=== PATIENT | female | born 1950 | race Caucasian/White ===

== ENCOUNTER 2016-07-22 17:10 | Inpatient (IN) | payer BC ==
[~2016-07-22] VITALS: Ht 177.8 cm; Wt 122.7 kg
[~2016-07-22 17:10] MED LIST: APIX5TAB PO; AZIT250T PO; CARV25TA PO; CEFT1FRO2 IV; CEFT1VIA6 IJ; CETI10TA22 PO; CHOL4000 PO; CHON250C PO; CICL12.5 NS; CYAN10005 PO; DIPH1TAB PO; ESCI20TA10 PO; FERR-26 PO; FURO-68 PO; FURO40TA4 PO; GABA-586 PO; LACT1CAP6 PO; LEVO100T5 PO; LEVO500T38 IV; LIDO700A4 TD; LIDO700A4 TP; LISI-334 PO; MULT-246 PO; NAPR220T70 PO; OMEG1CAP2 PO; OMEP40CA2 PO; PHEN100T82 PO; POTA20TA12 PO; POTA20TA4 PO; PRAV20TA2 PO; PROSOM PO; S-AD400T2 PO; TRAM-29 PO; UBID200C4 PO; VANC1.752 IV; VANC1VIA3 MC; [UNRECOGNIZED DRUG - CODE] IV; cardizem; el
--- NOTE | 2016-07-22 17:57 | ED.ADGEN ---
Past History Past Medical History: Cancer, CHF, CVA, Depression, Fibromyalgia, GERD, High Cholesterol, Hypertension, Kidney Stones, UTI, Other Past Surgical History: Cancer Surgery, Other Alcohol Use: None Drug Use: None Adult General Chief Complaint Chief Complaint " .. I am weak.. I feel like when I had C-dif.. before .. I am just washed out.. Diarrhea.. this morning...".. I ache.. I just hurt every where... "" My fibromyalgia.. my shoulders ,,.. my hips.. 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 Patient denies any travel. Patient denies any ill contacts. Patient denies any change in meds. Patient does complain of some dysuria. Patient has history of multiple medical problems. Patient normally follows Dr. Cano. Review of Systems Review of Systems Constitutional: Subjective complaints of fever or chills [] Eyes: Denies change in visual acuity, redness, or eye pain [] HENT: Denies nasal congestion or sore throat [] Respiratory: Denies cough or shortness of breath [] Cardiovascular: No additional information not addressed in HPI [] GI: Denies abdominal pain, nausea, vomiting, bloody stools . Complaints of diarrhea [] : Complaints of dysuria Musculoskeletal: Complaints of generalized joint pain [] Complaints of generalized weakness and fatigue. Integument: Denies rash or skin lesions [] Neurologic: Denies headache, focal weakness or sensory changes [] Endocrine: Denies polyuria or polydipsia [] Family History Family History Noncontributory Current Medications Current Medications Current Medications Medications (Trade) Dose Ordered Sig/Efrem Start Time Stop Time Status Last Admin Dose Admin Aspirin 324 mg 324 mg 1X ONCE 07/22/16 18:00 07/22/16 18:08 DC Lactated Ringer's 1,000 ml @ 1,000 mls/hr Q1H 07/22/16 18:00 07/22/16 18:57 1,000 MLS/HR Ondansetron HCl 8 mg 8 mg 1X ONCE 07/22/16 19:00 07/22/16 19:04 DC 3/19/17 19:17 8 MG Sodium Chloride (Iv Sodium Chloride 0.9% 250ml) 250 ml @ As Directed STK-MED ONCE 07/22/16 19:06 07/22/16 19:07 DC Tramadol/ Acetaminophen (Ultracet) 2 tab 1X ONCE 07/22/16 19:00 07/22/16 19:04 DC 07/22/16 19:16 2 TAB Vancomycin HCl 1 gm STK-MED ONCE 07/22/16 19:06 07/22/16 19:07 DC Vancomycin HCl/ Sodium Chloride (Iv Sodium Chloride 0.9% 250ml) 250 ml @ 250 mls/hr 1X ONCE 07/22/16 19:00 07/22/16 19:59 DC 07/22/16 19:18 250 MLS/HR Allergies Allergies Allergies Coded Allergies Type Severity Reaction Last Updated Verified cephalexin Allergy Intermediate 04/05/15 Yes cyclosporine Allergy Intermediate 04/05/15 Yes hydromorphone Allergy Intermediate 04/05/15 Yes nitrofurantoin Allergy Intermediate 04/05/15 Yes scopolamine Allergy Intermediate 02/17/15 Yes thimerosal Allergy Intermediate 02/17/15 Yes Physical Exam Physical Exam Constitutional: Moderate distress, non-toxic appearance. [] HENT: Normocephalic, atraumatic, bilateral external ears normal, oropharynx dry , no oral exudates, nose normal. [] Eyes: PERRLA, EOMI, conjunctiva normal, no discharge. [] Neck: Normal range of motion, no tenderness, supple, no stridor. [] Cardiovascular: Tachycardia Heart rate regular rhythm, no murmur [] PMI to the left Lungs & Thorax: Bilateral breath sounds equal apexes with some scattered wheezes. Surgery scars. Port on right Abdomen: Bowel sounds hyperactive, soft, no tenderness, no masses, no pulsatile masses. [] Morbid obesity. Old surgery scars. Tympanic. No true rebound. Old surgery scars. Patient is passing gas and diarrhea. Obese. Skin: Warm, dry, no erythema, no rash. [] Poor turgor Back: No tenderness, no CVA tenderness. [] Extremities: Generalized joint, shoulder girdle tenderness, no cyanosis, no clubbing, moves all ext on request,, ankle edema. [] Knee scars. Right knee scar. Right first toe ulcer Neurologic: Alert and oriented X 3, no gross new motor function deficits, increase general weakness and complaints of fatigue, decreased distal plantar sensory , Psychologic: Affect anxious, judgement normal, mood depressed Current Patient Data Vital Signs Vital Signs Date Time Temp Pulse Resp B/P Pulse Ox O2 Delivery O2 Flow Rate FiO2 07/22/16 18:30 100.2 63 16 156/73 98 Room Air Lab Results Laboratory Tests Test 07/22/16 17:40 07/22/16 18:10 07/22/16 18:51 Urine Collection Type U cath Urine Color Yellow Urine Clarity Hazy Urine pH 7.5 Urine Specific [place] 1.020 Urine Protein >100 mg/dl (NEG-TRACE) Urine Glucose (UA) 100mg/dL (NEG) Urine Ketones (Stick) 15mg/dL (NEG) Urine Blood Large (NEG) Urine Nitrite Pos (NEG) Urine Bilirubin Neg (NEG) Urine Urobilinogen Dipstick 2mg/dL (0.2 mg/dL) Urine Leukocyte Esterase Large (NEG) Urine RBC 3-5/HPF (0-2) Urine WBC Tntc/HPF (0-4) Urine Squamous Epithelial Cells Occ/LPF Urine Bacteria Mod/HPF (0-FEW) Urine Mucus Slight/LPF Urine Opiates Screen Neg (NEG) Urine Methadone Screen Neg (NEG) Urine Barbiturates Neg (NEG) Urine Phencyclidine Screen Neg (NEG) Urine Amphetamine/Methamphetamine Neg (NEG) Urine Benzodiazepines Screen Pos (NEG) Urine Cocaine Screen Neg (NEG) Urine Cannabinoids Screen Neg (NEG) Urine Ethyl Alcohol Neg (NEG) White Blood Count 15.0x10^3/uL (4.0-11.0) H Red Blood Count 4.82x10^6/uL (3.50-5.40) Hemoglobin 15.0g/dL (12.0-15.5) Hematocrit 45.8% (36.0-47.0) Mean Corpuscular Volume 95fL (79-100) Mean Corpuscular Hemoglobin 31pg (25-35) Mean Corpuscular Hemoglobin Concent 33g/dL (31-37) Red Cell Distribution Width 15.0% (11.5-14.5) H Platelet Count 153x10^3/uL (140-400) Neutrophils (%) (Auto) 78% (31-73) H Lymphocytes (%) (Auto) 12% (24-48) L Monocytes (%) (Auto) 9% (0-9) Eosinophils (%) (Auto) 1% (0-3) Basophils (%) (Auto) 1% (0-3) Neutrophils # (Auto) 11.7x10^3uL (1.8-7.7) H Lymphocytes # (Auto) 1.8x10^3/uL (1.0-4.8) Monocytes # (Auto) 1.3x10^3/uL (0.0-1.1) H Eosinophils # (Auto) 0.1x10^3/uL (0.0-0.7) Basophils # (Auto) 0.1x10^3/uL (0.0-0.2) Erythrocyte Sedimentation Rate 24 (0-25) Prothrombin Time 11.2SEC (9.4-11.4) Prothrombin Time INR 1.1 (0.9-1.1) PTT 24SEC (23-33) D-Dimer (Emma) 0.90mg/L (0.00-0.50) H Sodium Level 139mmol/L (136-145) Potassium Level 5.1mmol/L (3.5-5.1) Chloride Level 101mmol/L (98-107) Carbon Dioxide Level 29mmol/L (21-32) Anion Gap 9 (6-14) Blood Urea Nitrogen 39mg/dL (7-20) H Creatinine 1.8mg/dL (0.6-1.0) H Estimated GFR (Cockcroft-Gault) 28.1 Glucose Level 124mg/dL (70-99) H Calcium Level 10.2mg/dL (8.5-10.1) H Magnesium Level 2.2mg/dL (1.8-2.4) Total Bilirubin 1.1mg/dL (0.2-1.0) H Direct Bilirubin 0.3mg/dL (0.0-0.2) H Aspartate Amino Transferase (AST) 25U/L (15-37) Alanine Aminotransferase (ALT) 40U/L (14-59) Alkaline Phosphatase 109U/L (46-116) Creatine Kinase 38U/L (26-192) Creatine Kinase MB (Mass) 0.5ng/mL (0.0-3.6) Creatine Kinase MB Relative Index 1.3% (0-4) Troponin I Quantitative < 0.017ng/mL (0-0.055) C-Reactive Protein 98.3mg/L (0-3.3) H MB-Rbw-T-Type Natriuretic Peptide 106pg/mL (0-124) Total Protein 7.1g/dL (6.4-8.2) Albumin 4.0g/dL (3.4-5.0) Amylase Level 28U/L (25-115) Lipase 54U/L (73-393) L Lactic Acid Level 1.2mmol/L (0.4-2.0) EKG EKG My interpretation of EKG shows a sinus rhythm at 96 bpm. There is leftward axis and LVH. No findings acute STEMI of contralateral changes. [] Radiology/Procedures Radiology/Procedures I interpretation of abdomen films does show some isolated bowel loops. [] Chest x-ray shows cardiomegaly. No free air in the diaphragm. Port on right. Prior surgery clips. Course & Med Decision Making Course & Med Decision Making Pertinent Labs and Imaging studies reviewed. (See chart for details). Discussed presentation, testing and treatment plan with Dr. Crabtree. Will admit for further eval and tx. . US legs pending at time of admission. [] Final Impression Final Impression 1. Weakness[] 2. Leukocytosis 3. Urinary tract infection 4. Sirs /sepsis 5. Dehydration 6. Elevated BUNs and creatinine 7. Elevated C-reactive protein 8. History of diarrhea- history of prior C. difficile 9. Elevated d-dimer Problems: Dragon Disclaimer Dragon Disclaimer This electronic medical record was generated, in whole or in part, using a voice recognition dictation system. RALINE ALTAMIRANO MD Jul 22, 2016 17:57
[2016-07-22] MEDS ORDERED: IV RINGERS SOLUTION,LACTATED 1,000 ML IV SCH (18:00)
[2016-07-22] MEDS ORDERED: ASPIRIN 81 MG TAB.CHEW PO ONE (18:00)
[2016-07-22 18:20] LABS: AMPHETAMINE/METHAMPHETAMINE NEG (NEG); BARBITURATES NEG (NEG); BENZODIAZEPINES POS (NEG); CANNABINOIDS NEG (NEG); COCAINE NEG (NEG); METHADONE NEG (NEG); OPIATES NEG (NEG); PHENCYCLIDINE NEG (NEG)
[2016-07-22 18:24] LABS: CLARITY,URINE HAZY; COLOR,URINE YELLOW
[2016-07-22 18:25] LABS: BILIRUBIN,URINE NEG (NEG); GLUCOSE,URINE 100 mg/dL (NEG); NITRITE,URINE POS (NEG); UROBILINOGEN,URINE 2 mg/dL (0.2 mg/dL)
[2016-07-22 18:26] LABS: BACTERIA,URINE MOD /HPF (0-FEW); SQUAMOUS EPITHELIAL CELL,UR OCC /LPF; WBC,URINE TNTC /HPF (0-4)
--- NOTE | 2016-07-22 18:34 | EKG ---
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
[2016-07-22] MEDS ORDERED: ONDANSETRON PF 4 MG/2 ML VIAL. IV ONE (19:00)
[2016-07-22] MEDS ORDERED: TRAMADOL PO ONE (19:00)
[2016-07-22] MEDS ORDERED: VANCOMYCIN 1 GM in IV NORMAL SALINE 250ML 250 ML IV ONE ×2 (19:00→20:00)
[2016-07-22] MEDS ORDERED: ACETAMINOPHEN PO ONE (19:00)
[2016-07-22] MEDS ORDERED: VANCOMYCIN 1 GM VIAL. ONE ×2 (19:06→22:38)
[2016-07-22] MEDS ORDERED: IV NORMAL SALINE 250ML 250 ML ONE ×2 (19:06→22:39)
[2016-07-22 19:09] LABS: BASO # 0.1 x10^3/uL (0.0-0.2); BASO % 1 % (0-3); EOS # 0.1 x10^3/uL (0.0-0.7); EOS % 1 % (0-3); HEMATOCRIT 45.8 % (36.0-47.0); LYMPH # 1.8 x10^3/uL (1.0-4.8); LYMPH % 12 % (24-48); MEAN CORPUSCULAR HEMOGLOBIN 31 pg (25-35); MEAN CORPUSCULAR HGB CONC 33 g/dL (31-37); MEAN CORPUSCULAR VOLUME 95 fL (79-100); MONO # 1.3 x10^3/uL (0.0-1.1); MONO % 9 % (0-9); NEUT # 11.7 x10^3uL (1.8-7.7); NEUT % 78 % (31-73); PLATELET COUNT 153 x10^3/uL (140-400); RED BLOOD COUNT 4.82 x10^6/uL (3.50-5.40)
[2016-07-22] MEDS ORDERED: VANCOMYCIN PER PHARMACY MC PRN (19:15)
[2016-07-22] MEDS ORDERED: ONDANSETRON PF 4 MG/2 ML VIAL. IV PRN (19:15)
[2016-07-22 19:48] LABS: C REACTIVE PROTEIN 98.3 mg/L (0-3.3); CALCIUM 10.2 mg/dL (8.5-10.1); CREATININE 1.8 mg/dL (0.6-1.0); DIRECT BILIRUBIN 0.3 mg/dL (0.0-0.2); GFR 28.1; MAGNESIUM 2.2 mg/dL (1.8-2.4); POTASSIUM 5.1 mmol/L (3.5-5.1); TOTAL BILIRUBIN 1.1 mg/dL (0.2-1.0); TOTAL PROTEIN 7.1 g/dL (6.4-8.2)
[2016-07-22 20:18] LABS: SEDIMENTATION RATE 24 (0-25)
[2016-07-22] MEDS ORDERED: ANTI-COAG MONITOR BY PHARMACY. MC PRN (21:15)
[2016-07-22] MEDS ORDERED: ENOXAPARIN ** NOTE DOSE ** SYRINGE SQ SCH (21:30)
[2016-07-22] MEDS: METRONIDAZOLE 500 MG TABLET PO SCH (21:56)
[2016-07-22] MEDS: IV NORMAL SALINE 1,000ML 1,000 ML IV SCH (21:57)
[2016-07-22] MEDS ORDERED: ZOLPIDEM 5 MG TABLET. PO PRN (22:00)
[2016-07-22] MEDS ORDERED: LORAZEPAM 0.5 MG TABLET PO PRN (22:00)
[2016-07-22] MEDS ORDERED: PHENAZOPYRIDINE 100 MG TABLET. PO PRN (22:00)
[2016-07-22] MEDS ORDERED: FENTANYL PF 100 MCG/2 ML VIAL. IV PRN (22:00)
[2016-07-22 22:12] LABS: INFLUENZA A PATIENT NEGATIVE (NEGATIVE); INFLUENZA B PATIENT NEGATIVE (NEGATIVE)
[2016-07-22] MEDS ORDERED: ESCITALOPRAM 20 MG TABLET. PO SCH (22:30)
[2016-07-22] MEDS: FLUTICASONE 50MCG/NASAL SPRAY 16GM BOTTLE. NS SCH (22:35)
[2016-07-22] MEDS: TRAMADOL 50 MG TABLET. PO SCH (22:35)
[2016-07-22] MEDS: OMEGA-3 FATTY ACIDS/FISH OIL 1,000 MG CAPSULE. PO SCH (22:42)
[2016-07-22] MEDS: GABAPENTIN 300 MG CAPSULE. PO SCH (22:42)
[2016-07-22] MEDS: PRAVASTATIN 20 MG TABLET. PO SCH (22:43)
[2016-07-22 22:50] VITALS: BP 112/59
[2016-07-22] MEDS ORDERED: GABAPENTIN 300 MG CAPSULE. PO SCH (23:00)
[2016-07-22 23:04] VITALS: BP 102/54
[2016-07-23] VITALS (21 sets, daily range): BP systolic 64–149; BP diastolic 44–82
[2016-07-23] MEDS ORDERED: TRAM1TAB49 PO (03:40)
[2016-07-23] MEDS: ACETAMINOPHEN PO PRN ×2 (05:34→15:06)
[2016-07-23] MEDS: LEVOTHYROXINE 100 MCG TABLET PO SCH (05:34)
[2016-07-23] MEDS: TRAMADOL PO PRN ×2 (05:34→15:06)
[2016-07-23] MEDS: PANTOPRAZOLE 40 MG TABLET. PO SCH (08:15)
[2016-07-23] MEDS: CYANOCOBALAMIN (VITAMIN B-12) 1,000 MCG TABLET. PO SCH (08:15)
[2016-07-23] MEDS: METRONIDAZOLE 500 MG TABLET PO SCH ×3 (08:15→20:20)
[2016-07-23] MEDS: TRAMADOL 50 MG TABLET. PO SCH ×2 (08:15→20:30)
[2016-07-23] MEDS: CETIRIZINE HCL 10 MG TABLET PO SCH (08:15)
[2016-07-23] MEDS: MULTIVITAMIN with MINERAL TABLET. PO SCH (08:16)
[2016-07-23] MEDS: APIXABAN 5 MG TABLET. PO SCH ×2 (08:16→20:20)
[2016-07-23] MEDS: OMEGA-3 FATTY ACIDS/FISH OIL 1,000 MG CAPSULE. PO SCH ×2 (08:16→20:20)
[2016-07-23] MEDS: UBIDECARENONE 200 MG PO SCH (08:16)
[2016-07-23] MEDS: LACTOBACILLUS ACIDOPH & BULGAR 1 TABLET. PO SCH (08:16)
[2016-07-23] MEDS: CHOLECALCIFEROL (VITAMIN D3) 1,000 UNIT TABLET PO SCH (08:17)
[2016-07-23] MEDS: FERROUS SULFATE 325 MG TABLET PO SCH (08:17)
[2016-07-23] MEDS: POTASSIUM CHLORIDE 20 MEQ TABLET.ER. PO SCH (08:17)
[2016-07-23] MEDS: CARVEDILOL 25 MG TABLET PO SCH ×2 (08:17→15:05)
--- NOTE | 2016-07-23 08:50 | RAD ---
Indication chest and abdominal pain. Weakness. A single view of the chest was obtained. Comparison is made to an examination almost one year earlier. There is unchanged cardiomegaly. There is no congestive heart failure. There is no focal infiltrate. There is no pleural fluid or pneumothorax. Postoperative changes in the cervical spine and a right Port-A-Cath are noted. IMPRESSION: No acute or focal process seen in the chest
--- NOTE | 2016-07-23 08:51 | RAD ---
Ventilation/perfusion lung scan, 07/23/2016: History: Elevated d-dimer, dyspnea The ventilation study was performed utilizing 11 mCi of xenon-133. Activity in the lungs is heterogeneous. There is mild patchy retention of activity in the lungs on the washout phase, particularly in the right lung base. Perfusion imaging was performed utilizing 5.5 mCi of technetium 99m MAA. A similar pattern of activity is present in the lungs. No significant unmatched or segmental perfusion defects are seen. IMPRESSION: 1. Abnormal ventilation suggesting obstructive pulmonary disease. 2. No VQ evidence of pulmonary emboli.
--- NOTE | 2016-07-23 08:52 | RAD ---
Indication abdominal pain. Supine and upright films of the abdomen were obtained. Comparison is made to an examination 08/15/2015. The lung bases are unremarkable. There is no free air. There are dilated loops of small bowel. There is a paucity of gas in the large bowel. Findings are suggestive of a component of at least partial mechanical small bowel obstruction. Occasional calcifications are noted in the abdomen similar to the previous exam. IMPRESSION: Plain films of the abdomen suggesting at least partial mechanical small bowel obstruction
[2016-07-23] MEDS ORDERED: LIDOCAINE (700MG/PATCH) PATCH. TP PRN (09:00)
[2016-07-23] MEDS ORDERED: LIDOCAINE (700MG/PATCH) PATCH. TP SCH (09:00)
[2016-07-23] MEDS ORDERED: FUROSEMIDE 40 MG TABLET PO SCH (09:00)
[2016-07-23] MEDS ORDERED: FLUTICASONE 50MCG/NASAL SPRAY 16GM BOTTLE. NS SCH (09:00)
[2016-07-23] MEDS ORDERED: [UNRECOGNIZED DRUG - OTHER] PO SCH (09:00)
[2016-07-23] MEDS ORDERED: LISINOPRIL 20 MG TABLET PO SCH (09:00)
[2016-07-23] MEDS ORDERED: S ADENOSYLMETHIONINE SUL TOSYL 400 MG PO SCH (09:00)
[2016-07-23 10:03] LABS: BASO # 0.1 x10^3/uL (0.0-0.2); BASO % 0 % (0-3); EOS # 0.1 x10^3/uL (0.0-0.7); EOS % 0 % (0-3); HEMATOCRIT 40.8 % (36.0-47.0); HEMOGLOBIN 13.3 g/dL (12.0-15.5); LYMPH # 1.8 x10^3/uL (1.0-4.8); LYMPH % 12 % (24-48); MEAN CORPUSCULAR HEMOGLOBIN 31 pg (25-35); MEAN CORPUSCULAR HGB CONC 33 g/dL (31-37); MEAN CORPUSCULAR VOLUME 95 fL (79-100); MONO # 1.3 x10^3/uL (0.0-1.1); MONO % 9 % (0-9); NEUT # 12.2 x10^3uL (1.8-7.7); NEUT % 79 % (31-73); PLATELET COUNT 143 x10^3/uL (140-400); RED BLOOD COUNT 4.28 x10^6/uL (3.50-5.40); RED CELL DISTRIBUTION WIDTH 15.1 % (11.5-14.5); WHITE BLOOD COUNT 15.5 x10^3/uL (4.0-11.0)
[2016-07-23 10:16] LABS: ALBUMIN 3.4 g/dL (3.4-5.0); ALBUMIN/GLOBULIN RATIO 0.9 (1.0-1.7); CALCIUM 8.8 mg/dL (8.5-10.1); CREATININE 1.6 mg/dL (0.6-1.0); GFR 32.2
[2016-07-23 10:58] LABS: % BANDS 7 % (0-9); % EOS 1 % (0-5); % LYMPHS 6 % (24-48); % MONOS 7 % (0-10); % SEGS 79 % (35-66)
[2016-07-23 11:01] LABS: PLT ESTIMATE ADEQUATE (ADEQUATE); TOXIC GRANULATION PRESENT; TOXIC VACUOLATION PRESENT
[2016-07-23] MEDS: IV NORMAL SALINE 1,000ML 1,000 ML IV SCH ×2 (12:57→14:48)
[2016-07-23] MEDS: GABAPENTIN 300 MG CAPSULE. PO SCH ×2 (12:58→20:33)
--- NOTE | 2016-07-23 13:08 | RAD ---
Indication shortness of air, edema and elevated d-dimer. Grayscale color Doppler and spectral imaging was performed. Examination was targeted to the veins of the lower extremities. Bilaterally the common femoral, femoral and popliteal vessels demonstrate normal flow compressibility and augmentation. No thrombus is seen. The visualized calf veins, bilaterally, appeared unremarkable. IMPRESSION: Negative bilateral lower extremity venous analysis for DVT
[2016-07-23] MEDS ORDERED: PHENYLEPHRINE INJ 20 MG in IV NORMAL SALINE 250ML 250 ML IV PRN (14:45)
[2016-07-23 14:57] LABS: THYROID STIM HORMONE (TSH) 0.637 uIU/mL (0.358-3.740)
[2016-07-23] MEDS: VANCOMYCIN 1.75 GM in IV NORMAL SALINE 500ML 500 ML IV SCH (16:35)
--- NOTE | 2016-07-23 17:38 | CARD ---
APPROVED REPORT EXAM: Two-dimensional and M-mode echocardiogram with Doppler and color Doppler. Other Information Quality : GoodHR: 90bpm Rhythm : NSR INDICATION Hypotension RISK FACTORS Obesity 2D DIMENSIONS RVDd2.7 (2.9-3.5cm)IVSd1.3 (0.7-1.1cm) Aortic Root(2D)3.4 (2.0-3.7cm)LVDd4.7 (3.9-5.9cm) PWd0.1 (0.7-1.1cm)LVDs3.6 (2.5-4.0cm) FS (%) 24.8 %SV50.8 ml LVEF(%)49.0 (>50%) Aortic Valve AoV Peak Jaziel.185.6cm/sAoV VTI40.3cm AO Peak GR.13.8mmHgAO Mean GR.9mmHg KATI (VTI)2.24cm2 Mitral Valve MV E Xixrbxvb256.1cm/sMV E Peak Gr.3mmHg MV DECEL [id number] A Zyxrpbsq50.8cm/s MV E Mean Gr.2mmHgE/A Ratio1.1 MV A [id number] Tricuspid Valve TR P. Nzcptpiv412tn/sRAP [id number] TR Peak Gr.48mmHg LEFT VENTRICLE The left ventricle is normal size. There is mild concentric left ventricular hypertrophy. The left ve ntricular systolic function is low normal The Ejection Fraction is 50-55%. There is normal LV segment al wall motion. The left ventricular diastolic function and filling is normal for age. RIGHT VENTRICLE The right ventricle is normal size. There is normal right ventricular wall thickness. The right ventr icular systolic function is normal. ATRIA The left atrium is moderately dilated. The right atrium size is normal. The interatrial septum is int act with no evidence for an atrial septal defect or patent foramen ovale as noted on 2-D or Doppler i magmax. There is lipomatous hypertrophy of the interatrial septum AORTIC VALVE The aortic valve is mildly sclerotic. Doppler and Color Flow revealed no significant aortic regurgita tion. There is no significant aortic valvular stenosis. MITRAL VALVE The mitral valve is normal in structure and function. There is no evidence of mitral valve prolapse. There is no mitral valve stenosis. There is trace to mild mitral regurgitation. TRICUSPID VALVE Doppler and Color Flow revealed mild tricuspid regurgitation. The pulmonary artery systolic pressure is estimated at 51 mmHg. There is moderate pulmonary hypertension. PULMONIC VALVE The pulmonic valve is not well visualized. Doppler and Color Flow revealed no pulmonic valvular regur gitation. There is no pulmonic valvular stenosis. GREAT VESSELS The aortic root is normal in size. The ascending aorta is normal in size. The pulmonary artery is nor mal. The IVC is normal in size and collapses >50% with inspiration. PERICARDIAL EFFUSION There is no evidence of significant pericardial effusion. Critical Notification Critical Value: No <Conclusion> There is mild concentric left ventricular hypertrophy. The left ventricular systolic function is low normal The Ejection Fraction is 50-55%. The left atrium is moderately dilated. The aortic valve is mildly sclerotic. There is no significant aortic valvular stenosis. There is trace to mild mitral regurgitation. Doppler and Color Flow revealed mild tricuspid regurgitation. The pulmonary artery systolic pressure is estimated at 51 mmHg. There is moderate pulmonary hypertension. The IVC is normal in size and collapses >50% with inspiration.
--- NOTE | 2016-07-23 18:07 | PDOC2 ---
CONSULT The patient has been seen and examined and the full consult has been dictated.~ I have summarized the most important points for review while the note is being transcribed.~ Please see the dictation for complete details. Summary: Shock: Sec to Sepsis: Fluid resuscitation Pulm HTNL PAP 50. Review old echo H/o CHF: EF 50% Problems: MELANIE SCHMITZ MD Jul 23, 2016 18:06
[2016-07-23] MEDS ORDERED: IV NORMAL SALINE 1,000ML 1,000 ML IV ONE (18:15)
[2016-07-23] MEDS: PRAVASTATIN 20 MG TABLET. PO SCH (20:19)
[2016-07-23] MEDS: FLUTICASONE 50MCG/NASAL SPRAY 16GM BOTTLE. NS SCH (20:20)
--- NOTE | 2016-07-23 21:52 | HP ---
ADMIT DATE: 07/22/2016 HISTORY OF PRESENT ILLNESS: The patient is a 66-year-old female, not been feeling well for the last week with some general weakness, nausea and just not feeling well overall, not able to take some of her medications, thought she was coming down with something. She has a long history obviously of multiple medical problems including that of cancers. Consequently, is undergoing chemotherapy. At any case, the patient came in and she was found to have a florid urinary tract infection with sepsis. She was admitted to the hospital for further evaluation and treatment thereof. PAST MEDICAL HISTORY: Stage 4 breast cancer, Herceptin treatment every 3 weeks, acute right pronator teres syndrome due to over compression of blood pressure cuff. 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 She has had several falls, chronic severe osteoarthritis of her knees, lumbar spinal stenosis, chronic sinusitis, recurrent history of kidney stones, bilateral vitreous retractions and early cataracts, chronic recurrent fatigue, chemo brain phenomena, chronic ascending peripheral neuropathy, bilateral cubital tunnel syndrome, fibromyalgia, OCD, decreased magnesium and vitamin D3, SVT. She has also had a history of PEs as well. The patient on her breast cancer is 2 over-exp/ER plus P MEN. MET. breast cancer ([facility]) to bone only. She has had a 4-cycle dose in 2002 via Adriamycin, Taxol 1 year, tamoxifen, and Arimidex. In 12/2005, had MPI stress test, normal myocardial perfusion, EF at that time was 58%. Calcium score zero. She has had a triple recurrence with mets benign, begins Herceptin in 2008. A 2011 echo, 50% ejection fraction; in 09/2012, 54% ejection and biatrial enlargement. In 10/2013, starts Kadcyla. In 03/2015, CA 27-29 slowly declining and monitored EF by Dr. Escobar at . In 2014, discharged from [facility] due to urosepsis and MRSA sepsis. In 05/2015, Herceptin, discussed with Dr. Rudd. MEDICATIONS: Include Faslodex IM, gabapentin 600 mg twice daily, glucosamine, boswellia, Osteo Bi-Flex, lactobacillus, levothyroxine 100 mcg, Prinivil 5 mg a day, Prilosec 20 mg, potassium 8 mEq twice daily, pravastatin 20 mg at bedtime, adenosylmethionine one tablet daily, tramadol 50 mg daily, Herceptin IV, vancomycin capsules, and vitamins. ALLERGIES: She has allergies to DILAUDID, SCOPOLAMINE, MACRODANTIN, RESTASIS EYE DROPS, OXYCODONE AND THIOSAL PRESERVATIVES. PAST SURGICAL HISTORY: Right outer knee surgery, medial right knee partial repair, mastectomy. The patient also has an indwelling line. FAMILY HISTORY: Father right heart failure, pulmonary hypertension, pulmonary embolus and the mother . SOCIAL HISTORY: No smoking, alcohol or drug use. 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 REVIEW OF SYSTEMS: As noted, just generalized weakness, nausea, and general fatigue. PHYSICAL EXAMINATION: VITAL SIGNS: Actually, blood pressure went down as low as 64/44, respiratory rate 18, pulse 68, afebrile, oxygen 3 liters on nasal cannula at 95%. GENERAL: The patient is alert, but looks slightly confused. Skin is clammy. HEENT: Head was atraumatic, normocephalic. Eyes, PERRLA without jaundice. Mouth and throat were normal. NECK: Supple without JVD or thyromegaly. LUNGS: Diminished throughout, but clear. CARDIOVASCULAR: Regular sinus rhythm, S1, S2, without murmur, rub, thrill, or extra heart sound. ABDOMEN: Soft, protuberant, nontender. No rebound or guarding. Positive bowel sounds. No hepatosplenomegaly. EXTREMITIES: No clubbing or cyanosis. Trace edema noted. Pulses noted distally. NEUROLOGIC: Alert, but as noted slightly confused about speech. LABORATORY DATA: White count 15,000, hemoglobin and hematocrit 13 and 40, platelets stable, good differential there. Sodium and potassium ____. BUN and creatinine 34 and 1.8, down to 1.6. Calcium 10.2. Total bilirubin elevated. Cardiac enzymes negative. C-reactive protein 98.3. Lipid profile normal. TSH normal. Lactic acid within range. Urine greater than 40 white blood cells per high powered field, too numerous to count with positive nitrites. INR 1.1. D-dimer 0.9. Serology, influenza negative. IMPRESSION: Sepsis, urosepsis, organism unspecified at the present time, history of breast cancer with metastasis, hypotension, history of hypertension, Herceptin chemotherapy for her breast cancer treated at [facility] for such. RECOMMENDATIONS: The patient to be admitted, placed on sepsis pathway in the ICU for further evaluation and treatment thereof of the situation at hand. KYLE LAW MD DR: BELGICA/calixto JOB#: [id number] / [id number]
[2016-07-24] VITALS (14 sets, daily range): BP systolic 98–159; BP diastolic 54–95
--- NOTE | 2016-07-24 00:15 | CONS ---
DATE OF CONSULTATION: 07/23/2016 CARDIOLOGY CONSULTATION REFERRING PHYSICIAN: Dr. Kyle Crabtree. REASON FOR CONSULTATION: Hypotension and history of congestive heart failure. 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 She presented to the Emergency Room and was found to be febrile with an elevated white count and abnormal urine. She was hypertensive initially, however, since her arrival here this afternoon, she became hypotensive. She is now on Alex-Synephrine. She has had around 2 liters. She is making urine. She denies any chest pain. She says she feels washed out. She denies any shortness of breath. She is on oxygen. REVIEW OF SYSTEMS: She has had a T-max of 100.2. She says her normal temperature is 97. Temperature now is 97.9. Her pulse rate ____. She feels fatigued and has had diarrhea. She denies any chest pain or shortness of breath. The rest of the 10 organ review of system was negative. PAST MEDICAL HISTORY: She gives a history of right heart failure some years ago (she is not sure whether it was 2003 or 2013) and as well as a history of left heart failure in 2014. She gives a history of pulmonary embolism in 2013. She has a history of breast cancer affecting both breasts, and has been on chemotherapy since 2001. She had a port, which got infected. She has had multiple urinary tract infections recently. She does not have any knowledge of her pulmonary hypertension or coronary artery disease. She has a history of hypertension. PAST SURGICAL HISTORY: She reports that she has had "80 surgeries in her life." SOCIAL HISTORY: She does not smoke. 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 She takes alcohol on social occasions, but has not done so in the recent past. FAMILY HISTORY: Father had coronary artery disease and bypass surgery at the age of 85. He has a history of pulmonary hypertension. Her sisters have had breast cancer. There is no family history of premature coronary artery disease. MEDICATIONS: These were reviewed. She was on carvedilol, lisinopril, apixaban. She is currently on antibiotics. PHYSICAL EXAMINATION: GENERAL: She appears fatigued. Pulse rate is 70 and regular. Blood pressure is 115/65, O2 sats at 95% on 3 liters. HEENT: Pupils are equal and reactive. Extraocular movements are normal. Sclerae is clear. Mucous membranes are dry. NECK: Supple. There is no thyromegaly. There is no lymphadenopathy. Jugular venous pressure is not elevated. Hepatojugular reflux is absent. CARDIOVASCULAR: Revealed normal first and second heart sounds. No murmurs, rubs or gallops. There are no parasternal pulsations or heaves. CHEST: Revealed equal expansion and equal breath sounds bilaterally without any adventitious sounds. ABDOMEN: Soft, without any palpable mass or pulsations. No bruits. She has a port in her right chest. EXTREMITIES: Reveal no edema. Distal pulses were well felt. MUSCULOSKELETAL: No cyanosis or clubbing. No tremors. NEUROLOGIC: No facial asymmetry. There is no motor or sensory deficits. SKIN: There are no skin rashes. INVESTIGATIONS: Chest x-ray was reviewed and this shows slight enlargement of the heart size. Lung rothman were clear. Her urine was abnormal, which was hazy, positive for nitrites and WBCs. BUN was 39, creatinine 1.8, which has improved. Her troponin was negative. NT-proBNP is 106. WBC count is 15.5. IMPRESSION AND PLAN: 1. Shock: This is secondary to sepsis with elevated white count, an abnormal urine and fever. She appears to be volume depleted with a normal proBNP and dry mucous membranes and a flat jugular venous pressure. We shall give her more fluids in the form of 250 mL of normal saline for the next 4 hours and then reassess clinically. In the meantime, we shall try and wean her off the Alex-Synephrine. 2. Pulmonary hypertension: Her echo shows moderate pulmonary hypertension with a PA pressure of 50. She is well aware of this diagnosis. We shall review prior echocardiograms. 3. History of congestive heart failure: Her ejection fraction is around 50%. I am not sure of the exact cause of prior congestive heart failure, but may have been related to sepsis and infections. 4. Hypertension: Blood pressure medications are on hold. 5. History of pulmonary embolism in 2013. She is on apixaban. 6. Obesity: She is currently ill. 7. Osteoarthritis: She wants to have a knee replacement done. We talked about planning that at a later stage. MELANIE SCHMITZ MD DR: SOHAM/calixto JOB#: [id number] / [id number] KYLE Emerson MD
[2016-07-24] MEDS: TRAMADOL PO PRN (01:16)
[2016-07-24] MEDS: ACETAMINOPHEN PO PRN (01:16)
[2016-07-24] MEDS: IV NORMAL SALINE 1,000ML 1,000 ML IV SCH ×2 (02:42→07:29)
[2016-07-24] MEDS: LEVOTHYROXINE 100 MCG TABLET PO SCH (05:19)
--- NOTE | 2016-07-24 06:33 | ACF ---
Admission Criteria Forms URINARY COMPLICATIONS Clinical Indications for Inpatient Care (Place 'X' for any and all applicable criteria): Ongoing inpatient care may be indicated for urinary complications with ANY ONE of the following: [X]I. Urinary tract infection requiring inpatient care as indicated by ANY ONE of the following(8)(19)(20): [ ]a) Severe symptoms (eg, high fever, severe pain) [ ]b) Vomiting or dehydration requiring ongoing inpatient care [X]c) IV antibiotic needs that cannot be managed at lower level of care [ ]d) Hemodynamic instability [ ]e) Obstruction of collecting system by stone or tumor [ ]II. Urinary retention requiring drainage or surgery (3)(4)(5)(17)(18) [ ]III. Renal failure (Use Renal Failure Criteria for further information.) [ ]IV. Oliguria(30) [ ]V. Post obstructive diuresis requiring close monitoring of urine output and intravenous compensation for excessive fluid losses(33) Extended stay beyond goal length of stay for primary condition may be needed until ALL of the following are present(3)(4)(5)(8): [ ]a) Renal function (creatinine) at baseline, or daily decreases in creatinine consistent with renal function return [ ]b) Voiding adequately or with urinary catheter or percutaneous suprapubic tube and management regimen in place that is performable at lower level of care. [ ]c) Urine output adequate [ ]d) Fever absent or resolving [ ]e) Infection absent or treatable at next level of care The original [employer] content created by [employer] has been revised. The portions of the content which have been revised are identified through the use of italic text or in bold, and [facility] has neither reviewed nor approved the modified material. All other unmodified content is copyright [employer] [facility] Please see references footnoted in the original [employer] [facility] edition 2016 Admission Criteria Met?: Yes AMINAH CABALLERO Jul 24, 2016 06:33
[2016-07-24] MEDS: OMEGA-3 FATTY ACIDS/FISH OIL 1,000 MG CAPSULE. PO SCH ×2 (07:44→21:18)
[2016-07-24] MEDS: CHOLECALCIFEROL (VITAMIN D3) 1,000 UNIT TABLET PO SCH (07:45)
[2016-07-24] MEDS: UBIDECARENONE 200 MG PO SCH (07:45)
[2016-07-24] MEDS: APIXABAN 5 MG TABLET. PO SCH ×2 (07:45→21:19)
[2016-07-24] MEDS: PANTOPRAZOLE 40 MG TABLET. PO SCH (07:46)
[2016-07-24] MEDS: FERROUS SULFATE 325 MG TABLET PO SCH (07:46)
[2016-07-24] MEDS: TRAMADOL 50 MG TABLET. PO SCH ×2 (07:46→21:00)
[2016-07-24] MEDS: CARVEDILOL 25 MG TABLET PO SCH ×2 (07:47→16:43)
[2016-07-24] MEDS: MULTIVITAMIN with MINERAL TABLET. PO SCH (07:47)
[2016-07-24] MEDS: METRONIDAZOLE 500 MG TABLET PO SCH ×3 (07:47→21:18)
[2016-07-24] MEDS: LACTOBACILLUS ACIDOPH & BULGAR 1 TABLET. PO SCH (07:48)
[2016-07-24] MEDS: CYANOCOBALAMIN (VITAMIN B-12) 1,000 MCG TABLET. PO SCH (07:48)
[2016-07-24 07:49] LABS: CALCIUM 7.5 mg/dL (8.5-10.1); GFR 55.3
[2016-07-24] MEDS: POTASSIUM CHLORIDE 20 MEQ TABLET.ER. PO SCH (07:49)
[2016-07-24] MEDS: CETIRIZINE HCL 10 MG TABLET PO SCH (07:49)
--- NOTE | 2016-07-24 08:53 | PDOC ---
PROGRESS NOTES Diagnosis Problem Problems Medical Problems: (1) UTI (urinary tract infection) Status: Acute Assessment Problems Medical Problems: (1) UTI (urinary tract infection) Status: Acute Hypertension. Blood pressures starting to become elevated. She is off pressors. She got her Coreg this morning. I will reduce dose of DAFNE to see how she responds to the Coreg. Shock due to systemic infection. Now off Phenylephrine. Still on IV fluids. If she is eating and drinking better today, consider stopping IV fluids. Pulmonary hypertension, moderate. May be secondary to previous pulmonary embolism. VQ scan was low probability for pulmonary embolism here. Continue Eliquis. SVT. She had some SVT last night. She did not feel this last night, but sometimes at home she can feel this. Will resume Coreg, as above. 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 Problems: Subjective We are seeing her for shock. S: Seems somewhat confused. is at bedside and noticed the confusion. She denies chest pain, dyspnea, palpitations, syncope, ankle edema. Objective Vital Signs Date Time Temp Pulse Resp B/P Pulse Ox O2 Delivery O2 Flow Rate FiO2 07/24/16 08:00 Nasal Cannula 3.0 07/24/16 07:47 76 07/24/16 07:46 24 07/24/16 07:30 150/62 96 07/24/16 05:33 98.0 Intake and Output 07/24/16 07:00 Intake Total 4038 ml Output Total 2750 ml Balance 1288 ml Intake Oral 1375 ml IV Total 2663 ml Output Urine Total 2750 ml Abdomen: Normal bowel sounds, Soft, No tenderness Heart: Regular rate, Normal S1, Normal S2, Other (2/6 systolic ejection murmur. ) Extremities: No clubbing, No cyanosis, No edema, Normal pulses General: Alert, Oriented X3, Cooperative, No acute distress HEENT: Atraumatic, EOMI Lungs: Clear to auscultation, Normal air movement Neck: No JVD, +2 carotid pulse wo bruit Neuro: Normal speech, Strength at 5/5 X4 ext, Normal tone, Cranial nerves 3-12 NL Psych/Mental Status: Mood NL, Other (Seems slightly confused/forgetful about events of yesterday.) Skin: No rashes, No breakdown Review of Relevant I have reviewed the following items miguelangel (where applicable) has been applied. Labs Laboratory Tests Test 07/22/16 17:40 07/22/16 18:10 07/22/16 18:51 07/22/16 21:00 Urine Collection Type U cath Urine Color Yellow Urine Clarity Hazy Urine pH 7.5 Urine Specific [place] 1.020 Urine Protein >100 mg/dl (NEG-TRACE) Urine Glucose (UA) 100mg/dL (NEG) Urine Ketones (Stick) 15mg/dL (NEG) Urine Blood Large (NEG) Urine Nitrite Pos (NEG) Urine Bilirubin Neg (NEG) Urine Urobilinogen Dipstick 2mg/dL (0.2 mg/dL) Urine Leukocyte Esterase Large (NEG) Urine RBC 3-5/HPF (0-2) Urine WBC Tntc/HPF (0-4) Urine Squamous Epithelial Cells Occ/LPF Urine Bacteria Mod/HPF (0-FEW) Urine Mucus Slight/LPF Urine Opiates Screen Neg (NEG) Urine Methadone Screen Neg (NEG) Urine Barbiturates Neg (NEG) Urine Phencyclidine Screen Neg (NEG) Urine Amphetamine/Methamphetamine Neg (NEG) Urine Benzodiazepines Screen Pos (NEG) Urine Cocaine Screen Neg (NEG) Urine Cannabinoids Screen Neg (NEG) Urine Ethyl Alcohol Neg (NEG) White Blood Count 15.0x10^3/uL (4.0-11.0) Red Blood Count 4.82x10^6/uL (3.50-5.40) Hemoglobin 15.0g/dL (12.0-15.5) Hematocrit 45.8% (36.0-47.0) Mean Corpuscular Volume 95fL (79-100) Mean Corpuscular Hemoglobin 31pg (25-35) Mean Corpuscular Hemoglobin Concent 33g/dL (31-37) Red Cell Distribution Width 15.0% (11.5-14.5) Platelet Count 153x10^3/uL (140-400) Neutrophils (%) (Auto) 78% (31-73) Lymphocytes (%) (Auto) 12% (24-48) Monocytes (%) (Auto) 9% (0-9) Eosinophils (%) (Auto) 1% (0-3) Basophils (%) (Auto) 1% (0-3) Neutrophils # (Auto) 11.7x10^3uL (1.8-7.7) Lymphocytes # (Auto) 1.8x10^3/uL (1.0-4.8) Monocytes # (Auto) 1.3x10^3/uL (0.0-1.1) Eosinophils # (Auto) 0.1x10^3/uL (0.0-0.7) Basophils # (Auto) 0.1x10^3/uL (0.0-0.2) Erythrocyte Sedimentation Rate 24 (0-25) Prothrombin Time 11.2SEC (9.4-11.4) Prothromb Time International Ratio 1.1 (0.9-1.1) Activated Partial Thromboplast Time 24SEC (23-33) D-Dimer (Emma) 0.90mg/L (0.00-0.50) Sodium Level 139mmol/L (136-145) Potassium Level 5.1mmol/L (3.5-5.1) Chloride Level 101mmol/L (98-107) Carbon Dioxide Level 29mmol/L (21-32) Anion Gap 9 (6-14) Blood Urea Nitrogen 39mg/dL (7-20) Creatinine 1.8mg/dL (0.6-1.0) Estimated GFR (Cockcroft-Gault) 28.1 Glucose Level 124mg/dL (70-99) Calcium Level 10.2mg/dL (8.5-10.1) Magnesium Level 2.2mg/dL (1.8-2.4) Total Bilirubin 1.1mg/dL (0.2-1.0) Direct Bilirubin 0.3mg/dL (0.0-0.2) Aspartate Amino Transf (AST/SGOT) 25U/L (15-37) Alanine Aminotransferase (ALT/SGPT) 40U/L (14-59) Alkaline Phosphatase 109U/L (46-116) Creatine Kinase 38U/L (26-192) Creatine Kinase MB (Mass) 0.5ng/mL (0.0-3.6) Creatine Kinase MB Relative Index 1.3% (0-4) Troponin I Quantitative < 0.017ng/mL (0-0.055) C-Reactive Protein 98.3mg/L (0-3.3) WX-Iwm-Q-Type Natriuretic Peptide 106pg/mL (0-124) Total Protein 7.1g/dL (6.4-8.2) Albumin 4.0g/dL (3.4-5.0) Triglycerides Level 103mg/dL (0-150) Cholesterol Level 144mg/dL (0-200) LDL Cholesterol, Calculated 81mg/dL (0-100) VLDL Cholesterol, Calculated 20mg/dL (0-40) HDL Cholesterol 43mg/dL (40-60) Cholesterol/HDL Ratio 3.0 Amylase Level 28U/L (25-115) Lipase 54U/L (73-393) Thyroid Stimulating Hormone (TSH) 0.637uIU/mL (0.358-3.740) Lactic Acid Level 1.2mmol/L (0.4-2.0) Nasal Screen MRSA (PCR) Negative (Negative) Test 07/22/16 21:50 07/23/16 09:55 07/24/16 06:30 Influenza Type A (Rapid) Negative (NEGATIVE) Influenza Type B (Rapid) Negative (NEGATIVE) White Blood Count 15.5x10^3/uL (4.0-11.0) Red Blood Count 4.28x10^6/uL (3.50-5.40) Hemoglobin 13.3g/dL (12.0-15.5) Hematocrit 40.8% (36.0-47.0) Mean Corpuscular Volume 95fL (79-100) Mean Corpuscular Hemoglobin 31pg (25-35) Mean Corpuscular Hemoglobin Concent 33g/dL (31-37) Red Cell Distribution Width 15.1% (11.5-14.5) Platelet Count 143x10^3/uL (140-400) Neutrophils (%) (Auto) 79% (31-73) Lymphocytes (%) (Auto) 12% (24-48) Monocytes (%) (Auto) 9% (0-9) Eosinophils (%) (Auto) 0% (0-3) Basophils (%) (Auto) 0% (0-3) Neutrophils # (Auto) 12.2x10^3uL (1.8-7.7) Lymphocytes # (Auto) 1.8x10^3/uL (1.0-4.8) Monocytes # (Auto) 1.3x10^3/uL (0.0-1.1) Eosinophils # (Auto) 0.1x10^3/uL (0.0-0.7) Basophils # (Auto) 0.1x10^3/uL (0.0-0.2) Segmented Neutrophils % 79% (35-66) Band Neutrophils % 7% (0-9) Lymphocytes % 6% (24-48) Monocytes % 7% (0-10) Eosinophils % 1% (0-5) Toxic Granulation Present Toxic Vacuolation Present Dohle Bodies Present Platelet Estimate Adequate (ADEQUATE) Large Platelets Occ Sodium Level 141mmol/L (136-145) 144mmol/L (136-145) Potassium Level 4.0mmol/L (3.5-5.1) 4.0mmol/L (3.5-5.1) Chloride Level 106mmol/L (98-107) 111mmol/L (98-107) Carbon Dioxide Level 26mmol/L (21-32) 24mmol/L (21-32) Anion Gap 9 (6-14) 9 (6-14) Blood Urea Nitrogen 34mg/dL (7-20) 23mg/dL (7-20) Creatinine 1.6mg/dL (0.6-1.0) 1.0mg/dL (0.6-1.0) Estimated GFR (Cockcroft-Gault) 32.2 55.3 BUN/Creatinine Ratio 21 (6-20) Glucose Level 150mg/dL (70-99) 138mg/dL (70-99) Calcium Level 8.8mg/dL (8.5-10.1) 7.5mg/dL (8.5-10.1) Total Bilirubin 1.0mg/dL (0.2-1.0) Aspartate Amino Transf (AST/SGOT) 26U/L (15-37) Alanine Aminotransferase (ALT/SGPT) 42U/L (14-59) Alkaline Phosphatase 100U/L (46-116) Total Protein 7.0g/dL (6.4-8.2) Albumin 3.4g/dL (3.4-5.0) Albumin/Globulin Ratio 0.9 (1.0-1.7) Microbiology 07/22/16 Blood Culture - Preliminary, Resulted NO GROWTH AFTER 1 DAY Medications Current Medications Aspirin 324 mg 324 mg 1X ONCE PO ; Start 07/22/16 at 18:00; Stop 07/22/16 at 18 :08; Status DC Lactated Ringer's 1,000 ml @ 1,000 mls/hr Q1H IV Last administered on 18:57; Start 07/22/16 at 18:00 Vancomycin HCl/ Sodium Chloride (Iv Sodium Chloride 0.9% 250ml) 250 ml @ 250 mls/hr 1X ONCE IV Last administered on 07/22/16 19:18; Start 07/22/16 at 19: 00; Stop 07/22/16 at 19:59; Status DC Tramadol/ Acetaminophen (Ultracet) 2 tab 1X ONCE PO Last administered on 19:16; Start 07/22/16 at 19:00; Stop 07/22/16 at 19:04; Status DC Ondansetron HCl 8 mg 8 mg 1X ONCE IV Last administered on 07/22/16 19:17; Start 07/22/16 at 19:00; Stop 07/22/16 at 19:04; Status DC Sodium Chloride (Iv Sodium Chloride 0.9% 250ml) 250 ml @ As Directed STK-MED ONCE .ROUTE ; Start 07/22/16 at 19:06; Stop 07/22/16 at 19:07; Status DC Vancomycin HCl 1 gm STK-MED ONCE .ROUTE ; Start 07/22/16 at 19:06; Stop at 19:07; Status DC Ondansetron HCl (Zofran) 4 mg PRN Q4HRS PRN IV NAUSEA/VOMITING; Start 07/22/16 at 19:15; Stop 07/23/16 at 19:14; Status DC Tramadol/ Acetaminophen (Ultracet) 2 tab QIDPRN PRN PO pain Last administered on 07/24/16 01:16; Start 07/22/16 at 19:15 Vancomycin HCl (Vanco Per Pharmacy) 1 each PRN DAILY PRN MC SEE COMMENTS Last administered on 07/23/16 01:50; Start 07/22/16 at 19:15 Metronidazole 500 mg 500 mg TID PO Last administered on 07/24/16 07:47; Start 07/22/16 at 21:00 Vancomycin HCl/ Sodium Chloride (Iv Sodium Chloride 0.9% 250ml) 250 ml @ 250 mls/hr 1X ONCE IV Last administered on 07/22/16 22:42; Start 07/22/16 at 20: 00; Stop 07/22/16 at 20:59; Status DC Enoxaparin Sodium (Lovenox 120mg Syringe) 110 mg Q12HR SQ Last administered on 07/22/16 21:56; Start 07/22/16 at 21:30; Stop 07/23/16 at 07:06; Status DC Info 1 each 1 each PRN DAILY PRN MC SEE COMMENTS; Start 07/22/16 at 21:15 Sodium Chloride (Iv Sodium Chloride 0.9% 1,000ml) 1,000 ml @ 125 mls/hr Q8H IV Last administered on 07/24/16 07:29; Start 07/22/16 at 22:00 Apixaban (Eliquis) 5 mg BID PO Last administered on 07/24/16 07:45; Start at 09:00 Carvedilol (Coreg) 25 mg BIDWMEALS PO Last administered on 07/24/16 07:47; Start 07/23/16 at 08:00 Cetirizine HCl (Zyrtec) 10 mg DAILY PO Last administered on 07/24/16 07:49; Start 07/23/16 at 09:00 Cyanocobalamin (Vitamin B-12) 500 mcg DAILY PO Last administered on 07/24/16 07:48; Start 07/23/16 at 09:00 Escitalopram Oxalate (Lexapro) 20 mg HS PO ; Start 07/22/16 at 22:30; Stop 07/22 at 22:30; Status DC Ferrous Sulfate (Feosol) 325 mg DAILY PO Last administered on 07/24/16 07:46; Start 07/23/16 at 09:00 Furosemide (Lasix) 40 mg DAILY PO ; Start 07/23/16 at 09:00; Stop 07/23/16 at 09 :00; Status DC Gabapentin (Neurontin) 300 mg HS PO ; Start 07/22/16 at 23:00; Status Cancel Gabapentin (Neurontin) 300 mg Q12H PO Last administered on 07/23/16 12:58; Start 07/22/16 at 23:00 Levothyroxine Sodium (Synthroid) 100 mcg DAILY07 PO Last administered on 05:19; Start 07/23/16 at 07:00 Lidocaine (Lidoderm) 1 patch DAILY TP ; Start 07/23/16 at 09:00; Stop 07/23/16 at 09:00; Status DC Lisinopril (Prinivil) 20 mg DAILY PO Last administered on 07/23/16 08:16; Start 07/23/16 at 09:00; Stop 07/24/16 at 08:32; Status DC Phenazopyridine HCl (Pyridium) 100 mg PRN TID PRN PO URINARY TRACT PAIN; Start 07/22/16 at 22:00 Potassium Chloride (Klor-Con) 20 meq DAILY PO Last administered on 07/24/16 07 :49; Start 07/23/16 at 09:00 Pravastatin Sodium (Pravachol) 20 mg HS PO Last administered on 07/23/16 20:19 ; Start 07/22/16 at 23:00 Tramadol HCl (Ultram) 100 mg BID PO Last administered on 07/24/16 07:46; Start 07/22/16 at 23:00 Coenzyme Q10 (Coenzyme Q10) 200 mg DAILY PO Last administered on 07/24/16 07: 45; Start 07/23/16 at 09:00 Vitamin D (Vitamin D3) 4,000 unit DAILY PO Last administered on 07/24/16 07:45 ; Start 07/23/16 at 09:00 Non-Formulary Medication 250 mg DAILY PO JOINT PAIN; Start 07/23/16 at 09:00; Status UNV Fluticasone Propionate (Flonase) 2 spray DAILY NS ; Start 07/23/16 at 09:00; Stop 07/23/16 at 09:00; Status DC Lactobacillus Acidophilus (Bacid, Zabrina-Bid) 2 tab DAILY PO Last administered on 07/24/16 07:48; Start 07/23/16 at 09:00 Multivitamins/ Calcium (Thera-M Plus) 1 tab DAILY PO Last administered on 07:47; Start 07/23/16 at 09:00 Fish Oil (Fish Oil) 2,000 mg BID PO Last administered on 07/24/16 07:44; Start 07/22/16 at 23:00 Pantoprazole Sodium (Protonix) 40 mg DAILYAC PO Last administered on 07/24/16 07:46; Start 07/23/16 at 07:30 Non-Formulary Medication 400 mg DAILY PO ; Start 07/23/16 at 09:00; Status UNV Lorazepam (Ativan) 0.5 mg PRN TID PRN PO ANXIETY / AGITATION; Start 07/22/16 at 22:00 Zolpidem Tartrate (Ambien) 5 mg PRN QHS PRN PO INSOMNIA; Start 07/22/16 at 22: 00 Fentanyl Citrate (Fentanyl 2ml Vial) 25 mcg PRN Q2HR PRN IV SEVERE PAIN; Start 07/22/16 at 22:00 Fluticasone Propionate (Flonase) 2 spray HS NS Last administered on 07/23/16 20:20; Start 07/22/16 at 23:00 Lidocaine (Lidoderm) 1 patch PRN DAILY PRN TP MODERATE PAIN; Start 07/23/16 at 09:00 Vancomycin HCl 1 gm 1 gm STK-MED ONCE .ROUTE Last administered on 07/22/16 22: 47; Start 07/22/16 at 22:38; Stop 07/22/16 at 22:39; Status DC Sodium Chloride 250 ml @ As Directed STK-MED ONCE .ROUTE Last administered on 07/22/16 22:46; Start 07/22/16 at 22:39; Stop 07/22/16 at 22:40; Status DC Vancomycin HCl/ Sodium Chloride (Iv Sodium Chloride 0.9% 500ml) 500 ml @ 250 mls/hr Q24H IV Last administered on 07/23/16 16:35; Start 07/23/16 at 17:00 Vancomycin HCl 1 each 1 each 1X ONCE MC ; Start 07/24/16 at 20:30; Stop at 20:31 Phenylephrine HCl 20 mg/Sodium Chloride 252 ml @ 0 mls/hr CONT PRN IV SEE I/O RECORD Last administered on 07/23/16 14:49; Start 07/23/16 at 14:45 Sodium Chloride (Iv Sodium Chloride 0.9% 1,000ml) 1,000 ml @ 250 mls/hr 1X ONCE IV Last administered on 07/23/16 18:41; Start 07/23/16 at 18:15; Stop at 22:14; Status DC Lisinopril (Prinivil) 10 mg DAILY PO ; Start 07/24/16 at 09:00 Active Scripts Active Eliquis (Apixaban) 5 Mg Tablet 5 Mg PO BID Reported Ultracet Tablet (Tramadol Hcl/Acetaminophen) 1 Each Tablet 1 Tab PO TID Lidoderm (Lidocaine) 700 Mg Adh..patch 1 Patch TP PRN DAILY PRN LAST DOSE GIVEN: DATE: TODAY TIME: AM REMOVE PATCH THIS ELLIOTT NEXT DOSE DUE: DATE: TOMORROW TIME: AM Potassium Chloride 20 Meq Tab.er.prt 1 Tab PO DAILY LAST DOSE GIVEN: DATE: TODAY TIME: AM NEXT DOSE DUE: DATE: TOMORROW TIME: AM Gabapentin 300 Mg Capsule 3 Cap PO HS LAST DOSE GIVEN: DATE: YESTER TIME: PM NEXT DOSE DUE: DATE: TIME: PM Lisinopril 20 Mg Tablet 1 Tab PO DAILY LAST DOSE GIVEN: DATE: TODAY TIME: AM NEXT DOSE DUE: DATE: W TIME: AM Ferrous Sulfate 325 Mg Tablet 1 Tab PO DAILY LAST DOSE GIVEN: DATE: TIME: AM NEXT DOSE DUE: DATE: ORR TIME: AM Levothyroxine Sodium 100 Mcg Tablet 100 Mcg PO DAILYAC LAST DOSE GIVEN: DATE: TODAY TIME: AM NEXT DOSE DUE: DATE: ORR TIME: AM Zyrtec (Cetirizine Hcl) 10 Mg Tablet 10 Mg PO DAILY LAST DOSE GIVEN: DATE: TIME: AM NEXT DOSE DUE: DATE: ORR TIME: AM Pravastatin Sodium 20 Mg Tablet 20 Mg PO HS LAST DOSE GIVEN: DATE: TIME: PM NEXT DOSE DUE: DATE: TODAY TIME: PM Probiotic (Lactobacillus Acidophilus) 1 Each Capsule 1 Each PO DAILY LAST DOSE GIVEN: DATE: TODAY TIME: AM NEXT DOSE DUE: DATE: TOMORROW TIME: AM Mumtaz-E (S-Adenosylmethionine Sul Tosyl) 400 Mg Tablet 400 Mg PO DAILY LAST DOSE GIVEN: DATE: TIME: AM NEXT DOSE DUE: DATE: TOMORROW TIME: AM Chondroitin Sulfate (Chondroitin Sulfate A) 250 Mg Capsule 250 Mg PO DAILY NEXT DOSE DUE: DATE: RESTART TOMORROW TIME: AM [place] ([place]-3 Acid Ethyl Esters) 1 Gm Capsule 2 Cap PO BID LAST DOSE GIVEN: DATE: TIME: NEXT DOSE DUE: DATE: RESTART TOMORROW TIME: AM Vitamin B-12 (Cyanocobalamin (Vitamin B-12)) 1,000 Mcg Tablet 500 Mcg PO DAILY LAST DOSE GIVEN: DATE: TODAY TIME: AM NEXT DOSE DUE: DATE: TOMORROW TIME: AM Vitamin D3 (Cholecalciferol (Vitamin D3)) 4,000 Unit Capsule 4,000 Unit PO DAILY LAST DOSE GIVEN: DATE: TODAY TIME: AM NEXT DOSE DUE: DATE: TOMORR TIME: AM Multi-Vitamin Daily (Multivitamin) 1 Each Tablet 1 Each PO DAILY LAST DOSE GIVEN: DATE: TIME: AM NEXT DOSE DUE: DATE: TOMORROW TIME: AM Co Q-10 (Ubidecarenone) 200 Mg Capsule 200 Mg PO DAILY LAST DOSE GIVEN: DATE: TODAY TIME: AM NEXT DOSE DUE: DATE: TOMORROW TIME: AM Ultram (Tramadol HCl) 50 Mg Tablet 100 Mg PO BID LAST DOSE GIVEN: DATE: TIME: AM NEXT DOSE DUE: DATE: TODAY TIME: PM Pyridium (Phenazopyridine Hcl) 100 Mg Tablet 100 Mg PO PRN LAST DOSE GIVEN: DATE: TIME: NEXT DOSE DUE: DATE: TIME: Prilosec (Omeprazole) 40 Mg Capsule.dr 40 Mg PO DAILY LAST DOSE GIVEN: DATE: TIME: NEXT DOSE DUE: DATE: TOMORR TIME: AM Omnaris (Ciclesonide) 12.5 Gm [place].pump 1 [place] NS HS LAST DOSE GIVEN: AUTOSUB: FLOMAX DATE: TODAY TIME: AM NEXT DOSE DUE: DATE: TOMORR TIME: AM Neurontin (Gabapentin) 300 Mg Capsule 300 Mg PO TID LAST DOSE GIVEN: DATE: TIME: AM NEXT DOSE DUE: DATE: TIME: AFTERNOON Coreg (Carvedilol) 25 Mg Tablet 25 Mg PO BID LAST DOSE GIVEN: DATE: TODAY TIME: AM NEXT DOSE DUE: DATE: TODAY TIME: PM Vitals/I & O Vital Sign - Last 24 Hours 07/23/16 07/23/16 07/23/16 07/23/16 09:30 10:00 11:00 12:00 Pulse 78 76 92 Resp 22 17 20 B/P 91/51 89/45 89/47 Pulse Ox 92 94 95 94 O2 Delivery Nasal Cannula Nasal Cannula Nasal Cannula Nasal Cannula O2 Flow Rate 3.0 3.0 3.0 3.0 07/23/16 07/23/16 07/23/16 07/23/16 13:00 13:05 13:35 13:50 Temp 97.9 Pulse 70 68 68 70 Resp 18 20 18 20 B/P 76/50 78/47 64/44 115/65 Pulse Ox 94 94 95 95 O2 Delivery Nasal Cannula Nasal Cannula Nasal Cannula Nasal Cannula O2 Flow Rate 3.0 3.0 3.0 3.0 07/23/16 07/23/16 07/23/16 07/23/16 14:00 14:30 15:00 15:05 Temp 98.4 Pulse 76 76 82 80 Resp 18 18 18 B/P 87/69 116/82 102/68 Pulse Ox 95 95 95 O2 Delivery Nasal Cannula Nasal Cannula Nasal Cannula O2 Flow Rate 3.0 3.0 3.0 07/23/16 07/23/16 07/23/16 07/23/16 16:00 17:00 17:30 18:00 Pulse 86 80 84 82 Resp 24 22 B/P 95/51 89/50 100/66 91/54 Pulse Ox 95 96 96 97 O2 Delivery Nasal Cannula Nasal Cannula Nasal Cannula Nasal Cannula O2 Flow Rate 3.0 3.0 3.0 3.0 07/23/16 07/23/16 07/23/16 07/23/16 19:00 20:11 20:37 21:08 Temp 97.8 Pulse 76 79 78 Resp 22 B/P 90/60 97/61 118/72 Pulse Ox 93 94 94 O2 Delivery Nasal Cannula Nasal Cannula Nasal Cannula BiPAP/CPAP O2 Flow Rate 3.0 3.0 3.0 3.0 07/23/16 07/23/16 07/24/16 07/24/16 22:08 23:09 00:53 01:00 Temp 99.4 Pulse 79 81 93 Resp 20 20 20 B/P 90/54 139/59 155/69 Pulse Ox 96 94 93 O2 Delivery BiPAP/CPAP Nasal Cannula Nasal Cannula O2 Flow Rate 3.0 3.0 3.0 07/24/16 07/24/16 07/24/16 07/24/16 01:16 02:16 02:23 03:29 Pulse 94 108 Resp 16 B/P 123/71 142/60 Pulse Ox 93 94 94 95 O2 Delivery Nasal Cannula Nasal Cannula Nasal Cannula BiPAP/CPAP O2 Flow Rate 3.0 3.0 3.0 3.0 07/24/16 07/24/16 07/24/16 07/24/16 04:23 05:33 07:30 07:46 Temp 98.0 Pulse 108 112 78 Resp 24 B/P 159/69 136/95 150/62 Pulse Ox 96 95 96 O2 Delivery BiPAP/CPAP Nasal Cannula Nasal Cannula O2 Flow Rate 3.0 3.0 3.0 07/24/16 07/24/16 07:47 08:00 Pulse 76 O2 Delivery Nasal Cannula O2 Flow Rate 3.0 Intake and Output 07/23/16 07/23/16 07/24/16 15:00 23:00 07:00 Intake Total 1425 ml 935 ml 1678 ml Output Total 400 ml 350 ml 2000 ml Balance 1025 ml 585 ml -322 ml LAQUITA BARRY Jr, MD Jul 24, 2016 08:53
[2016-07-24] MEDS: LISINOPRIL 10 MG TABLET PO SCH ×2 (09:00→09:48)
[2016-07-24] MEDS ORDERED: ESTA2TAB PO (09:06)
[2016-07-24 09:48] LABS: BASO % 0 % (0-3); EOS # 0.2 x10^3/uL (0.0-0.7); EOS % 3 % (0-3); HEMATOCRIT 34.8 % (36.0-47.0); HEMOGLOBIN 11.4 g/dL (12.0-15.5); LYMPH % 12 % (24-48); MEAN CORPUSCULAR HEMOGLOBIN 31 pg (25-35); MEAN CORPUSCULAR HGB CONC 33 g/dL (31-37); MEAN CORPUSCULAR VOLUME 96 fL (79-100); MONO # 0.9 x10^3/uL (0.0-1.1); MONO % 11 % (0-9); NEUT # 6.3 x10^3uL (1.8-7.7); NEUT % 75 % (31-73); PLATELET COUNT 98 x10^3/uL (140-400); RED BLOOD COUNT 3.63 x10^6/uL (3.50-5.40); RED CELL DISTRIBUTION WIDTH 15.2 % (11.5-14.5); WHITE BLOOD COUNT 8.4 x10^3/uL (4.0-11.0)
[2016-07-24] MEDS: GABAPENTIN 300 MG CAPSULE. PO SCH ×2 (09:48→13:04)
[2016-07-24] MEDS ORDERED: EXEM25TA2 PO (16:35)
[2016-07-24] MEDS: ONDANSETRON PF 4 MG/2 ML VIAL. IV PRN (16:37)
[2016-07-24] MEDS: VANCOMYCIN 1.75 GM in IV NORMAL SALINE 500ML 500 ML IV SCH (16:41)
[2016-07-24] MEDS: NYSTATIN TOPICAL POWDER 30GM BOTTLE. TP SCH (21:00)
[2016-07-24] MEDS ORDERED: ESTAZOLAM 2 MG PO SCH (21:00)
[2016-07-24] MEDS: FLUTICASONE 50MCG/NASAL SPRAY 16GM BOTTLE. NS SCH (21:12)
[2016-07-24] MEDS: PRAVASTATIN 20 MG TABLET. PO SCH (21:18)
[2016-07-24] MEDS ORDERED: ACETAMINOPHEN 500 MG TABLET PO PRN (21:30)
--- NOTE | 2016-07-25 01:27 | PN ---
DATE: 07/22/2016 SUBJECTIVE: The patient in with sepsis and urinary tract infection. The patient's culture still not return back yet, although she does seem to be responding to her IV antibiotic therapy; otherwise, she is basically stable. OBJECTIVE: VITAL SIGNS: Blood pressure 130/80, pulse 90, respiratory rate 18, and afebrile. LUNGS: Diminished throughout, but clear. CARDIOVASCULAR: Regular sinus rhythm. ABDOMEN: Soft, protuberant, and nontender. No rebound or guarding. Positive bowel sounds. No hepatosplenomegaly. The patient seems to be making some improvement mentally, but is confused and disoriented as she has been with the IV antibiotic therapy that she is receiving now. IMPRESSION: Sepsis, urinary tract infection, history of breast cancer, and chemotherapy. PLAN: The patient continued to be monitored carefully and continue with IV antibiotic therapy until further results are obtained. KYLE LAW MD DR: BELGICA/calixto JOB#: [id number] / [id number]
[2016-07-25 04:24] VITALS: BP 140/72
[2016-07-25] MEDS: UBIDECARENONE 200 MG PO SCH (08:01)
[2016-07-25] MEDS: NYSTATIN TOPICAL POWDER 30GM BOTTLE. TP SCH (08:01)
[2016-07-25] MEDS: LEVOTHYROXINE 100 MCG TABLET PO SCH (08:01)
[2016-07-25] MEDS: CETIRIZINE HCL 10 MG TABLET PO SCH (08:02)
[2016-07-25] MEDS: TRAMADOL 50 MG TABLET. PO SCH (08:02)
[2016-07-25] MEDS: APIXABAN 5 MG TABLET. PO SCH (08:02)
[2016-07-25] MEDS: CYANOCOBALAMIN (VITAMIN B-12) 1,000 MCG TABLET. PO SCH (08:02)
[2016-07-25] MEDS: MULTIVITAMIN with MINERAL TABLET. PO SCH (08:03)
[2016-07-25] MEDS: PANTOPRAZOLE 40 MG TABLET. PO SCH (08:03)
[2016-07-25] MEDS: FERROUS SULFATE 325 MG TABLET PO SCH (08:03)
[2016-07-25] MEDS: METRONIDAZOLE 500 MG TABLET PO SCH (08:03)
[2016-07-25] MEDS: LACTOBACILLUS ACIDOPH & BULGAR 1 TABLET. PO SCH (08:03)
[2016-07-25] MEDS: OMEGA-3 FATTY ACIDS/FISH OIL 1,000 MG CAPSULE. PO SCH (08:03)
[2016-07-25] MEDS: POTASSIUM CHLORIDE 20 MEQ TABLET.ER. PO SCH (08:03)
[2016-07-25] MEDS: CHOLECALCIFEROL (VITAMIN D3) 1,000 UNIT TABLET PO SCH (08:04)
[2016-07-25] MEDS: CARVEDILOL 25 MG TABLET PO SCH (08:04)
[2016-07-25 08:07] LABS: BASO % 0 % (0-3); EOS # 0.4 x10^3/uL (0.0-0.7); EOS % 5 % (0-3); HEMATOCRIT 35.9 % (36.0-47.0); HEMOGLOBIN 11.8 g/dL (12.0-15.5); LYMPH # 1.2 x10^3/uL (1.0-4.8); LYMPH % 16 % (24-48); MEAN CORPUSCULAR HEMOGLOBIN 31 pg (25-35); MEAN CORPUSCULAR HGB CONC 33 g/dL (31-37); MEAN CORPUSCULAR VOLUME 95 fL (79-100); MONO # 0.7 x10^3/uL (0.0-1.1); MONO % 10 % (0-9); NEUT # 4.9 x10^3uL (1.8-7.7); NEUT % 68 % (31-73); PLATELET COUNT 112 x10^3/uL (140-400); RED BLOOD COUNT 3.77 x10^6/uL (3.50-5.40); RED CELL DISTRIBUTION WIDTH 15.1 % (11.5-14.5); WHITE BLOOD COUNT 7.2 x10^3/uL (4.0-11.0)
[2016-07-25] MEDS: LISINOPRIL 10 MG TABLET PO SCH (08:10)
[2016-07-25 08:11] VITALS: BP 149/69
[2016-07-25 08:16] LABS: CALCIUM 8.5 mg/dL (8.5-10.1); CREATININE 0.9 mg/dL (0.6-1.0); GFR 62.5; POTASSIUM 4.3 mmol/L (3.5-5.1)
[2016-07-25] MEDS ORDERED: EXEMESTANE 25 MG TABLET PO SCH (09:00)
--- NOTE | 2016-07-25 09:07 | PDOC ---
PROGRESS NOTES Diagnosis Problem Problems Medical Problems: (1) UTI (urinary tract infection) Status: Acute Assessment Problems Medical Problems: (1) UTI (urinary tract infection) Status: Acute Hypertension. BP improved. Septic shock has resolved. Now off IV fluids. She did not get her DAFNE yesterday because she normally takes this at night and it was ordered for the morning. The order has been changed. SVT. She had some more SVT last night. Will continue beta katrina. Check magnesium level. She needs to follow up with her regular civil engineering director at after discharge. Hypercholesterolemia, pure. Her cholesterol level is under good control on her testing here. Pulmonary hypertension. 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 Her most recent echocardiogram from did not report the pulmonary artery pressure. The echocardiogram here may be confounded by the sepsis. She can also follow up with her regular civil engineering director regarding this condition after discharge. Disposition. At this point in time, there do not appear to be any acute cardiac problems. Cardiology will sign off. Please call if you have other questions or concerns. Problems: Subjective We are seeing her for hypertension. S: Denies chest pain, dyspnea, palpitations, syncope, ankle edema. She seems more clear in her thought processes today. She had another short run of PSVT last night. Objective Vital Signs Date Time Temp Pulse Resp B/P Pulse Ox O2 Delivery O2 Flow Rate FiO2 07/25/16 08:11 97.9 79 20 149/69 98 Nasal Cannula 3.0 Intake and Output 07/25/16 07:00 Intake Total 2300 ml Output Total 2253 ml Balance 47 ml Intake Oral 1700 ml IV Total 600 ml Output Urine Total 2250 ml Stool Total 3 ml Abdomen: Normal bowel sounds, Soft, No tenderness Heart: Regular rate, Normal S1, Normal S2, Other (2/6 systolic ejection murmur. ) Extremities: No clubbing, No cyanosis, No edema, Normal pulses General: Alert, Oriented X3, Cooperative, No acute distress HEENT: Atraumatic, EOMI, Mucous membr. moist/pink Lungs: Clear to auscultation, Normal air movement Neck: No JVD, +2 carotid pulse wo bruit Neuro: Normal speech, Strength at 5/5 X4 ext, Normal tone, Cranial nerves 3-12 NL Psych/Mental Status: Mental status NL, Mood NL Skin: No rashes, No breakdown, No significant lesion Review of Relevant I have reviewed the following items miguelangel (where applicable) has been applied. Labs Laboratory Tests Test 07/23/16 09:55 07/24/16 06:30 07/25/16 07:35 White Blood Count 15.5x10^3/uL (4.0-11.0) 8.4x10^3/uL (4.0-11.0) 7.2x10^3/uL (4.0-11.0) Red Blood Count 4.28x10^6/uL (3.50-5.40) 3.63x10^6/uL (3.50-5.40) 3.77x10^6/uL (3.50-5.40) Hemoglobin 13.3g/dL (12.0-15.5) 11.4g/dL (12.0-15.5) 11.8g/dL (12.0-15.5) Hematocrit 40.8% (36.0-47.0) 34.8% (36.0-47.0) 35.9% (36.0-47.0) Mean Corpuscular Volume 95fL (79-100) 96fL (79-100) 95fL (79-100) Mean Corpuscular Hemoglobin 31pg (25-35) 31pg (25-35) 31pg (25-35) Mean Corpuscular Hemoglobin Concent 33g/dL (31-37) 33g/dL (31-37) 33g/dL (31-37) Red Cell Distribution Width 15.1% (11.5-14.5) 15.2% (11.5-14.5) 15.1% (11.5-14.5) Platelet Count 143x10^3/uL (140-400) 98x10^3/uL (140-400) 112x10^3/uL (140-400) Neutrophils (%) (Auto) 79% (31-73) 75% (31-73) 68% (31-73) Lymphocytes (%) (Auto) 12% (24-48) 12% (24-48) 16% (24-48) Monocytes (%) (Auto) 9% (0-9) 11% (0-9) 10% (0-9) Eosinophils (%) (Auto) 0% (0-3) 3% (0-3) 5% (0-3) Basophils (%) (Auto) 0% (0-3) 0% (0-3) 0% (0-3) Neutrophils # (Auto) 12.2x10^3uL (1.8-7.7) 6.3x10^3uL (1.8-7.7) 4.9x10^3uL (1.8-7.7) Lymphocytes # (Auto) 1.8x10^3/uL (1.0-4.8) 1.0x10^3/uL (1.0-4.8) 1.2x10^3/uL (1.0-4.8) Monocytes # (Auto) 1.3x10^3/uL (0.0-1.1) 0.9x10^3/uL (0.0-1.1) 0.7x10^3/uL (0.0-1.1) Eosinophils # (Auto) 0.1x10^3/uL (0.0-0.7) 0.2x10^3/uL (0.0-0.7) 0.4x10^3/uL (0.0-0.7) Basophils # (Auto) 0.1x10^3/uL (0.0-0.2) 0.0x10^3/uL (0.0-0.2) 0.0x10^3/uL (0.0-0.2) Segmented Neutrophils % 79% (35-66) Band Neutrophils % 7% (0-9) Lymphocytes % 6% (24-48) Monocytes % 7% (0-10) Eosinophils % 1% (0-5) Toxic Granulation Present Toxic Vacuolation Present Dohle Bodies Present Platelet Estimate Adequate (ADEQUATE) Large Platelets Occ Sodium Level 141mmol/L (136-145) 144mmol/L (136-145) 147mmol/L (136-145) Potassium Level 4.0mmol/L (3.5-5.1) 4.0mmol/L (3.5-5.1) 4.3mmol/L (3.5-5.1) Chloride Level 106mmol/L (98-107) 111mmol/L (98-107) 110mmol/L (98-107) Carbon Dioxide Level 26mmol/L (21-32) 24mmol/L (21-32) 29mmol/L (21-32) Anion Gap 9 (6-14) 9 (6-14) 8 (6-14) Blood Urea Nitrogen 34mg/dL (7-20) 23mg/dL (7-20) 16mg/dL (7-20) Creatinine 1.6mg/dL (0.6-1.0) 1.0mg/dL (0.6-1.0) 0.9mg/dL (0.6-1.0) Estimated GFR (Cockcroft-Gault) 32.2 55.3 62.5 BUN/Creatinine Ratio 21 (6-20) Glucose Level 150mg/dL (70-99) 138mg/dL (70-99) 111mg/dL (70-99) Calcium Level 8.8mg/dL (8.5-10.1) 7.5mg/dL (8.5-10.1) 8.5mg/dL (8.5-10.1) Total Bilirubin 1.0mg/dL (0.2-1.0) Aspartate Amino Transf (AST/SGOT) 26U/L (15-37) Alanine Aminotransferase (ALT/SGPT) 42U/L (14-59) Alkaline Phosphatase 100U/L (46-116) Total Protein 7.0g/dL (6.4-8.2) Albumin 3.4g/dL (3.4-5.0) Albumin/Globulin Ratio 0.9 (1.0-1.7) Microbiology 07/22/16 Blood Culture - Preliminary, Resulted NO GROWTH AFTER 2 DAYS 07/22/16 Urine Culture - Preliminary, Resulted 07/22/16 Urine Culture Result 1 (GODWIN) - Preliminary, Resulted Medications Current Medications Aspirin 324 mg 324 mg 1X ONCE PO ; Start 07/22/16 at 18:00; Stop 07/22/16 at 18 :08; Status DC Lactated Ringer's 1,000 ml @ 1,000 mls/hr Q1H IV Last administered on t 18:57; Start 07/22/16 at 18:00 Vancomycin HCl/ Sodium Chloride (Iv Sodium Chloride 0.9% 250ml) 250 ml @ 250 mls/hr 1X ONCE IV Last administered on 07/22/16 19:18; Start 07/22/16 at 19: 00; Stop 07/22/16 at 19:59; Status DC Tramadol/ Acetaminophen (Ultracet) 2 tab 1X ONCE PO Last administered on 19:16; Start 07/22/16 at 19:00; Stop 07/22/16 at 19:04; Status DC Ondansetron HCl 8 mg 8 mg 1X ONCE IV Last administered on 07/22/16 19:17; Start 07/22/16 at 19:00; Stop 07/22/16 at 19:04; Status DC Sodium Chloride (Iv Sodium Chloride 0.9% 250ml) 250 ml @ As Directed STK-MED ONCE .ROUTE ; Start 07/22/16 at 19:06; Stop 07/22/16 at 19:07; Status DC Vancomycin HCl 1 gm STK-MED ONCE .ROUTE ; Start 07/22/16 at 19:06; Stop at 19:07; Status DC Ondansetron HCl (Zofran) 4 mg PRN Q4HRS PRN IV NAUSEA/VOMITING; Start 07/22/16 at 19:15; Stop 07/23/16 at 19:14; Status DC Tramadol/ Acetaminophen (Ultracet) 2 tab QIDPRN PRN PO pain Last administered on 07/24/16 01:16; Start 07/22/16 at 19:15 Vancomycin HCl (Vanco Per Pharmacy) 1 each PRN DAILY PRN MC SEE COMMENTS Last administered on 07/23/16 01:50; Start 07/22/16 at 19:15 Metronidazole 500 mg 500 mg TID PO Last administered on 07/25/16 08:03; Start 07/22/16 at 21:00 Vancomycin HCl/ Sodium Chloride (Iv Sodium Chloride 0.9% 250ml) 250 ml @ 250 mls/hr 1X ONCE IV Last administered on 07/22/16 22:42; Start 07/22/16 at 20: 00; Stop 07/22/16 at 20:59; Status DC Enoxaparin Sodium (Lovenox 120mg Syringe) 110 mg Q12HR SQ Last administered on 07/22/16 21:56; Start 07/22/16 at 21:30; Stop 07/23/16 at 07:06; Status DC Info 1 each 1 each PRN DAILY PRN MC SEE COMMENTS; Start 07/22/16 at 21:15; Status Cancel Sodium Chloride (Iv Sodium Chloride 0.9% 1,000ml) 1,000 ml @ 125 mls/hr Q8H IV Last administered on 07/24/16 07:29; Start 07/22/16 at 22:00; Stop 07/24/16 at 18:54; Status DC Apixaban (Eliquis) 5 mg BID PO Last administered on 07/25/16 08:02; Start at 09:00 Carvedilol (Coreg) 25 mg BIDWMEALS PO Last administered on 07/25/16 08:04; Start 07/23/16 at 08:00 Cetirizine HCl (Zyrtec) 10 mg DAILY PO Last administered on 07/25/16 08:02; Start 07/23/16 at 09:00 Cyanocobalamin (Vitamin B-12) 500 mcg DAILY PO Last administered on 07/25/16 08:02; Start 07/23/16 at 09:00 Escitalopram Oxalate (Lexapro) 20 mg HS PO ; Start 07/22/16 at 22:30; Stop 07/22 at 22:30; Status DC Ferrous Sulfate (Feosol) 325 mg DAILY PO Last administered on 07/25/16 08:03; Start 07/23/16 at 09:00 Furosemide (Lasix) 40 mg DAILY PO ; Start 07/23/16 at 09:00; Stop 07/23/16 at 09 :00; Status DC Gabapentin (Neurontin) 300 mg HS PO ; Start 07/22/16 at 23:00; Status Cancel Gabapentin (Neurontin) 300 mg Q12H PO Last administered on 07/24/16 13:04; Start 07/22/16 at 23:00 Levothyroxine Sodium (Synthroid) 100 mcg DAILY07 PO Last administered on 08:01; Start 07/23/16 at 07:00 Lidocaine (Lidoderm) 1 patch DAILY TP ; Start 07/23/16 at 09:00; Stop 07/23/16 at 09:00; Status DC Lisinopril (Prinivil) 20 mg DAILY PO Last administered on 07/23/16 08:16; Start 07/23/16 at 09:00; Stop 07/24/16 at 08:32; Status DC Phenazopyridine HCl (Pyridium) 100 mg PRN TID PRN PO URINARY TRACT PAIN; Start 07/22/16 at 22:00 Potassium Chloride (Klor-Con) 20 meq DAILY PO Last administered on 07/25/16 08 :03; Start 07/23/16 at 09:00 Pravastatin Sodium (Pravachol) 20 mg HS PO Last administered on 07/24/16 21:18 ; Start 07/22/16 at 23:00 Tramadol HCl (Ultram) 100 mg BID PO Last administered on 07/25/16 08:02; Start 07/22/16 at 23:00 Coenzyme Q10 (Coenzyme Q10) 200 mg DAILY PO Last administered on 07/25/16 08: 01; Start 07/23/16 at 09:00 Vitamin D (Vitamin D3) 4,000 unit DAILY PO Last administered on 07/25/16 08:04 ; Start 07/23/16 at 09:00 Non-Formulary Medication 250 mg DAILY PO JOINT PAIN; Start 07/23/16 at 09:00; Status UNV Fluticasone Propionate (Flonase) 2 spray DAILY NS ; Start 07/23/16 at 09:00; Stop 07/23/16 at 09:00; Status DC Lactobacillus Acidophilus (Bacid, Zabrina-Bid) 2 tab DAILY PO Last administered on 07/25/16 08:03; Start 07/23/16 at 09:00 Multivitamins/ Calcium (Thera-M Plus) 1 tab DAILY PO Last administered on 08:03; Start 07/23/16 at 09:00 Fish Oil (Fish Oil) 2,000 mg BID PO Last administered on 07/25/16 08:03; Start 07/22/16 at 23:00 Pantoprazole Sodium (Protonix) 40 mg DAILYAC PO Last administered on 07/25/16 08:03; Start 07/23/16 at 07:30 Non-Formulary Medication 400 mg DAILY PO ; Start 07/23/16 at 09:00; Status UNV Lorazepam (Ativan) 0.5 mg PRN TID PRN PO ANXIETY / AGITATION; Start 07/22/16 at 22:00 Zolpidem Tartrate (Ambien) 5 mg PRN QHS PRN PO INSOMNIA; Start 07/22/16 at 22: 00 Fentanyl Citrate (Fentanyl 2ml Vial) 25 mcg PRN Q2HR PRN IV SEVERE PAIN; Start 07/22/16 at 22:00 Fluticasone Propionate (Flonase) 2 spray HS NS Last administered on 07/24/16 21:12; Start 07/22/16 at 23:00 Lidocaine (Lidoderm) 1 patch PRN DAILY PRN TP MODERATE PAIN; Start 07/23/16 at 09:00 Vancomycin HCl 1 gm 1 gm STK-MED ONCE .ROUTE Last administered on 07/22/16 22: 47; Start 07/22/16 at 22:38; Stop 07/22/16 at 22:39; Status DC Sodium Chloride 250 ml @ As Directed STK-MED ONCE .ROUTE Last administered on 07/22/16 22:46; Start 07/22/16 at 22:39; Stop 07/22/16 at 22:40; Status DC Vancomycin HCl/ Sodium Chloride (Iv Sodium Chloride 0.9% 500ml) 500 ml @ 250 mls/hr Q24H IV Last administered on 07/24/16 16:41; Start 07/23/16 at 17:00 Vancomycin HCl 1 each 1 each 1X ONCE MC ; Start 07/24/16 at 20:30; Stop at 20:30; Status DC Phenylephrine HCl 20 mg/Sodium Chloride 252 ml @ 0 mls/hr CONT PRN IV SEE I/O RECORD Last administered on 07/23/16 14:49; Start 07/23/16 at 14:45 Sodium Chloride (Iv Sodium Chloride 0.9% 1,000ml) 1,000 ml @ 250 mls/hr 1X ONCE IV Last administered on 07/23/16 18:41; Start 07/23/16 at 18:15; Stop at 22:14; Status DC Lisinopril (Prinivil) 10 mg DAILY PO ; Start 07/24/16 at 09:00; Stop 07/25/16 at 08:17; Status DC Non-Formulary Medication 2 mg 2 mg HS PO sleep Last administered on 3/21/17at 21 :12; Start 07/24/16 at 21:00 Levofloxacin/ Dextrose (LEVAQUIN 500mg PREMIX) 100 ml @ 100 mls/hr Q24H IV Last administered on 07/24/16 14:58; Start 07/24/16 at 14:00 Vancomycin HCl 1 each 1X ONCE MC ; Start 07/25/16 at 16:30; Stop 07/25/16 at 16 :31 Ondansetron HCl (Zofran) 4 mg PRN Q6HRS PRN IV NAUSEA/VOMITING Last administered on 07/24/16 16:37; Start 07/24/16 at 16:45 Exemestane (Aromasin) 25 mg DAILY PO Last administered on 07/25/16 08:02; Start 07/25/16 at 09:00 Nystatin (Nystop) 1 selvin BID TP Last administered on 07/25/16 08:01; Start at 21:00 Acetaminophen (Tylenol) 500 mg PRN Q6HRS PRN PO PAIN / TEMP Last administered on 07/24/16 21:31; Start 07/24/16 at 21:30 Lisinopril (Prinivil) 10 mg HS PO ; Start 07/25/16 at 21:00 Active Scripts Active Eliquis (Apixaban) 5 Mg Tablet 5 Mg PO BID Reported Exemestane 25 Mg Tablet 25 Mg PO DAILY Estazolam 2 Mg Tablet 2 Mg PO HS Ultracet Tablet (Tramadol Hcl/Acetaminophen) 1 Each Tablet 1 Tab PO TID Lidoderm (Lidocaine) 700 Mg Adh..patch 1 Patch TP PRN DAILY PRN LAST DOSE GIVEN: DATE: TODAY TIME: AM REMOVE PATCH THIS ELLIOTT NEXT DOSE DUE: DATE: TOMORROW TIME: AM Potassium Chloride 20 Meq Tab.er.prt 1 Tab PO DAILY LAST DOSE GIVEN: DATE: TODAY TIME: AM NEXT DOSE DUE: DATE: TOMORROW TIME: AM Gabapentin 300 Mg Capsule 3 Cap PO HS LAST DOSE GIVEN: DATE: YESTERDAY TIME: PM NEXT DOSE DUE: DATE: TODAY TIME: PM Lisinopril 20 Mg Tablet 1 Tab PO DAILY LAST DOSE GIVEN: DATE: TODAY TIME: AM NEXT DOSE DUE: DATE: TOMMORW TIME: AM Ferrous Sulfate 325 Mg Tablet 1 Tab PO DAILY LAST DOSE GIVEN: DATE: TODAY TIME: AM NEXT DOSE DUE: DATE: TOMORROW TIME: AM Levothyroxine Sodium 100 Mcg Tablet 100 Mcg PO DAILYAC LAST DOSE GIVEN: DATE: TODAY TIME: AM NEXT DOSE DUE: DATE: ORR TIME: AM Zyrtec (Cetirizine Hcl) 10 Mg Tablet 10 Mg PO DAILY LAST DOSE GIVEN: DATE: TIME: AM NEXT DOSE DUE: DATE: TIME: AM Pravastatin Sodium 20 Mg Tablet 20 Mg PO HS LAST DOSE GIVEN: DATE: YESTER TIME: PM NEXT DOSE DUE: DATE: TODAY TIME: PM Probiotic (Lactobacillus Acidophilus) 1 Each Capsule 1 Each PO DAILY LAST DOSE GIVEN: DATE: TODAY TIME: AM NEXT DOSE DUE: DATE: ORR TIME: AM Mumtaz-E (S-Adenosylmethionine Sul Tosyl) 400 Mg Tablet 400 Mg PO DAILY LAST DOSE GIVEN: DATE: TIME: AM NEXT DOSE DUE: DATE: ORR TIME: AM Chondroitin Sulfate (Chondroitin Sulfate A) 250 Mg Capsule 250 Mg PO DAILY NEXT DOSE DUE: DATE: RESTART TOMORROW TIME: AM Lovaza ([place]-3 Acid Ethyl Esters) 1 Gm Capsule 2 Cap PO BID LAST DOSE GIVEN: DATE: TIME: NEXT DOSE DUE: DATE: RESTART TOMOW TIME: AM Vitamin B-12 (Cyanocobalamin (Vitamin B-12)) 1,000 Mcg Tablet 500 Mcg PO DAILY LAST DOSE GIVEN: DATE: TIME: AM NEXT DOSE DUE: DATE: TIME: AM Vitamin D3 (Cholecalciferol (Vitamin D3)) 4,000 Unit Capsule 4,000 Unit PO DAILY LAST DOSE GIVEN: DATE: TIME: AM NEXT DOSE DUE: DATE: TIME: AM Multi-Vitamin Daily (Multivitamin) 1 Each Tablet 1 Each PO DAILY LAST DOSE GIVEN: DATE: TODAY TIME: AM NEXT DOSE DUE: DATE: TIME: AM Co Q-10 (Ubidecarenone) 200 Mg Capsule 200 Mg PO DAILY LAST DOSE GIVEN: DATE: TIME: AM NEXT DOSE DUE: DATE: TIME: AM Ultram (Tramadol HCl) 50 Mg Tablet 100 Mg PO BID LAST DOSE GIVEN: DATE: TIME: AM NEXT DOSE DUE: DATE: TODAY TIME: PM Pyridium (Phenazopyridine Hcl) 100 Mg Tablet 100 Mg PO PRN LAST DOSE GIVEN: DATE: TIME: NEXT DOSE DUE: DATE: TIME: Prilosec (Omeprazole) 40 Mg Capsule.dr 40 Mg PO DAILY LAST DOSE GIVEN: DATE: TIME: NEXT DOSE DUE: DATE: TOMORROW TIME: AM Omnaris (Ciclesonide) 12.5 Gm [place].pump 1 [place] NS HS LAST DOSE GIVEN: AUTOSUB: FLOMAX DATE: TODAY TIME: AM NEXT DOSE DUE: DATE: TOMORROW TIME: AM Neurontin (Gabapentin) 300 Mg Capsule 300 Mg PO TID LAST DOSE GIVEN: DATE: TODAY TIME: AM NEXT DOSE DUE: DATE: TODAY TIME: AFTERNOON Coreg (Carvedilol) 25 Mg Tablet 25 Mg PO BID LAST DOSE GIVEN: DATE: TODAY TIME: AM NEXT DOSE DUE: DATE: TODAY TIME: PM Vitals/I & O Vital Sign - Last 24 Hours 07/24/16 07/24/16 07/24/16 07/24/16 09:00 09:01 10:08 11:20 Pulse 66 70 74 Resp 20 B/P 95/52 140/59 109/59 122/68 Pulse Ox 97 97 O2 Delivery Nasal Cannula Nasal Cannula Nasal Cannula 07/24/16 07/24/16 07/24/16 07/24/16 12:30 14:30 16:43 16:49 Temp 97.8 Pulse 78 71 80 73 Resp B/P 98/60 114/54 110/71 Pulse Ox 96 97 97 O2 Delivery Nasal Cannula Nasal Cannula Nasal Cannula O2 Flow Rate 2.0 2.0 07/24/16 07/24/16 07/24/16 07/25/16 19:25 20:19 23:10 04:24 Temp 98.9 98.2 97.8 Pulse 85 79 70 Resp B/P 121/64 108/61 140/72 Pulse Ox 97 95 100 O2 Delivery Nasal Cannula Nasal Cannula BiPAP/CPAP Nasal Cannula O2 Flow Rate 2.0 2.0 2.0 2.0 07/25/16 07/25/16 07/25/16 07:48 08:04 08:11 Temp 97.9 Pulse 81 79 Resp 20 B/P 149/69 Pulse Ox 98 O2 Delivery Nasal Cannula Nasal Cannula O2 Flow Rate 2.0 3.0 Intake and Output 07/24/16 07/24/16 07/25/16 15:00 23:00 07:00 Intake Total 950 ml 1200 ml 150 ml Output Total 1 ml 1252 ml 1000 ml Balance 949 ml -52 ml -850 ml LAQUITA BARRY Jr, MD Jul 25, 2016 09:07
[2016-07-25] MEDS: GABAPENTIN 300 MG CAPSULE. PO SCH (11:23)
[2016-07-25] MEDS ORDERED: LISI10TA2 PO (11:29)
[2016-07-25] MEDS ORDERED: Levaquin IV (11:36)
[2016-07-25 13:37] VITALS: BP 163/74
[2016-07-25] MEDS: ONDANSETRON PF 4 MG/2 ML VIAL. IV PRN (13:39)
[2016-07-25] MEDS ORDERED: LISINOPRIL 10 MG TABLET PO SCH (21:00)
--- NOTE | 2016-07-26 02:12 | PN ---
DATE: 07/25/2016 The patient here in ICU and transferred to the regular floor. The patient did have Gram-negative sepsis. The patient's white count down to 7.2, hemoglobin 11 and 35. Chemistries were all basically stable, slightly low magnesium of 1.7, otherwise doing remarkably better. Her final culture is still pending. OBJECTIVE: VITAL SIGNS: Blood pressure is 150/70, respiratory rate is 20, pulse 80, afebrile. GENERAL: The patient is alert and oriented x 3. LUNGS: Diminished, but clear. CARDIOVASCULAR: Regular sinus rhythm. ABDOMEN: Soft, protuberant. EXTREMITIES: No clubbing, cyanosis. Trace edema. NEUROLOGIC: Intact. IMPRESSION: Gram-negative sepsis. Continue with IV antibiotic, prepare for discharge and continue IV antibiotic therapy with home health as an outpatient facility. Also supraventricular tachycardia, hypotension, hypomagnesia, history of breast cancer, chemotherapy for breast cancer. KYLE LAW MD DR: BELGICA/calixto JOB#: [id number] / [id number]
== END 2016-07-25 14:21 | disposition home health service (06) | DRG 871 ==
LOC: ER 17:10 → ICU 19:06
PROVIDERS: ADMIT Family Medicine; ATTEND Family Medicine
PROC: 5A09357 Assistance with Respiratory Ventilation, Less than 24 Consecutive Hours, Continuous Positive Airway Pressure (ICD-10-PCS; principal; 2016-07-23)
DX: A41.50 Gram-negative sepsis, unspecified (principal); R65.21 Severe sepsis with septic shock; I47.1 Supraventricular tachycardia; N39.0 Urinary tract infection, site not specified; E66.9 Obesity, unspecified; E78.00 Pure hypercholesterolemia, unspecified; E83.42 Hypomagnesemia; F42.9 Obsessive-compulsive disorder, unspecified; I10 Essential (primary) hypertension; I27.2 Other secondary pulmonary hypertension; J32.9 Chronic sinusitis, unspecified; Z96.659 Presence of unspecified artificial knee joint; F32.9 Major depressive disorder, single episode, unspecified; K21.9 Gastro-esophageal reflux disease without esophagitis; M19.90 Unspecified osteoarthritis, unspecified site; M79.7 Fibromyalgia; Z80.3 Family history of malignant neoplasm of breast; Z82.49 Family history of ischemic heart disease and other diseases of the circulatory system; Z86.711 Personal history of pulmonary embolism; Z86.73 Personal history of transient ischemic attack (TIA), and cerebral infarction without residual deficits; Z85.3 Personal history of malignant neoplasm of breast; Z87.440 Personal history of urinary (tract) infections; Z87.442 Personal history of urinary calculi; Z88.1 Allergy status to other antibiotic agents; Z88.8 Allergy status to other drugs, medicaments and biological substances; Z68.38 Body mass index [BMI] 38.0-38.9, adult
CPT/HCPCS: 36415; 51702; 71020; 74020; 78582; 80048; 80053; 80061; 80076; 81001; 82150; 82553; 83605; 83690; 83735; 83880; 84443; 84484; 85007; 85027; 85379; 85610; 85651; 85730; 86140; 87040; 87086; 87186; 87641; 87804; 93005; 93306; 93970; 96365; 96374; 96375; A9540; A9541; G0238; G0481; J1650; J1956; J2405; J3370; J7040; J7050; J7120; 97110; 97116; 97535; 99285-25; J7030

== ENCOUNTER → 2016-08-02 | Outpatient (CLI) | payer BC ==
[~2016-08-02] MED LIST changes: +ESTA2TAB PO; +EXEM25TA2 PO; +IV NORMAL SALINE 1,000ML 1,000 ML IV ONE; +LISI10TA2 PO; +Levaquin IV; +TRAM1TAB49 PO; +VANCOMYCIN 250 MG/5 ML ORAL SOLUTION. PO ONE
[2016-08-02 11:36] VITALS: BP 121/66
== END | disposition home or self-care (01) ==
LOC: OPINF 10:57
PROVIDERS: ATTEND Family Medicine
DX: E86.0 Dehydration (principal); A04.7 Enterocolitis due to Clostridium difficile
CPT/HCPCS: 96365; J7030

== ENCOUNTER 2016-08-25 12:46 | Inpatient (IN) | payer BC, MEDICARE ==
[~2016-08-25] VITALS: Ht 177.8 cm; Wt 121.6 kg
[2016-08-25] VITALS (8 sets, daily range): BP systolic 97–207; BP diastolic 46–96
[~2016-08-25 12:46] MED LIST changes: -IV NORMAL SALINE 1,000ML 1,000 ML IV ONE; -VANCOMYCIN 250 MG/5 ML ORAL SOLUTION. PO ONE
[2016-08-25] MEDS ORDERED: ONDANSETRON PF 4 MG/2 ML VIAL. ONE (12:52)
[2016-08-25] MEDS ORDERED: IV NORMAL SALINE 1,000ML 1,000 ML ONE (13:27)
[2016-08-25] MEDS ORDERED: ONDANSETRON PF 4 MG/2 ML VIAL. IV PRN (13:45)
[2016-08-25] MEDS ORDERED: PROMETHAZINE 25 MG in IV NORMAL SALINE 50ML 50 ML IV PRN (13:45)
[2016-08-25 13:57] LABS: BASO % 0 % (0-3); EOS # 0.1 x10^3/uL (0.0-0.7); EOS % 1 % (0-3); HEMOGLOBIN 14.1 g/dL (12.0-15.5); LYMPH % 10 % (24-48); MEAN CORPUSCULAR HEMOGLOBIN 31 pg (25-35); MEAN CORPUSCULAR HGB CONC 33 g/dL (31-37); MEAN CORPUSCULAR VOLUME 95 fL (79-100); MONO # 0.6 x10^3/uL (0.0-1.1); MONO % 6 % (0-9); NEUT # 8.6 x10^3uL (1.8-7.7); NEUT % 84 % (31-73); PLATELET COUNT 129 x10^3/uL (140-400); RED BLOOD COUNT 4.54 x10^6/uL (3.50-5.40); RED CELL DISTRIBUTION WIDTH 15.2 % (11.5-14.5); WHITE BLOOD COUNT 10.3 x10^3/uL (4.0-11.0)
[2016-08-25 13:59] LABS: BILIRUBIN,URINE NEG (NEG); CLARITY,URINE HAZY; COLOR,URINE YELLOW; GLUCOSE,URINE NEG (NEG)
[2016-08-25 14:00] LABS: NITRITE,URINE POS (NEG); UROBILINOGEN,URINE 0.2 mg/dL (0.2 mg/dL)
[2016-08-25] MEDS ORDERED: LEVOFLOXACIN PER PHARMACY MC PRN (14:00)
[2016-08-25 14:06] LABS: BACTERIA,URINE FEW /HPF (0-FEW); SQUAMOUS EPITHELIAL CELL,UR OCC /LPF
[2016-08-25 14:08] LABS: ALBUMIN 3.5 g/dL (3.4-5.0); ALBUMIN/GLOBULIN RATIO 0.9 (1.0-1.7); C REACTIVE PROTEIN 57.5 mg/L (0-3.3); CALCIUM 9.2 mg/dL (8.5-10.1); GFR 55.3; MAGNESIUM 1.5 mg/dL (1.8-2.4); POTASSIUM 3.3 mmol/L (3.5-5.1); TOTAL BILIRUBIN 1.3 mg/dL (0.2-1.0); TOTAL PROTEIN 7.6 g/dL (6.4-8.2)
[2016-08-25] MEDS ORDERED: GABA600T91 PO (14:09)
[2016-08-25] MEDS ORDERED: OMEP20TA63 PO (14:12)
[2016-08-25] MEDS ORDERED: POTA10TA5 PO (14:12)
[2016-08-25] MEDS ORDERED: VANC125S PO (14:15)
[2016-08-25] MEDS ORDERED: LISINOPRIL 10 MG TABLET PO SCH ×2 (14:30→21:00)
--- NOTE | 2016-08-25 14:41 | RAD ---
AP portable chest radiograph 08/25/2016 Clinical History: Shortness of breath. An AP portable erect digital radiograph of the chest was obtained. Comparison study is dated 07/22/2016. A right internal jugular Gywcef-s-Fzor type catheter is unchanged position. Surgical clips overlie the right and left axilla. Anterior plate and bone screws overlies the lower cervical spine. The cardiac silhouette is mildly enlarged. There is left ventricular prominence. The thoracic aorta is tortuous. Atherosclerotic calcification of the thoracic aorta is seen. No acute pulmonary infiltrate is seen. No pleural effusion or pneumothorax is noted. The osseous structures are unchanged. Impression: No acute pulmonary infiltrate is seen.
[2016-08-25] MEDS: CARVEDILOL 25 MG TABLET PO SCH ×2 (14:43→16:39)
[2016-08-25] MEDS: IV NORMAL SALINE 1,000ML 1,000 ML IV SCH ×2 (14:45→16:01)
[2016-08-25] MEDS ORDERED: VANCOMYCIN 2 GM in IV NORMAL SALINE 500ML 500 ML IV ONE (15:00)
[2016-08-25] MEDS ORDERED: IOHEXOL 300 MG/ML 75 ML VIAL. IV ONE (15:15)
[2016-08-25] MEDS: VANCOMYCIN PER PHARMACY MC PRN (16:46)
--- NOTE | 2016-08-25 16:50 | RAD ---
PROCEDURE CT arteriogram of the chest HISTORY CTAChest w/ Abdpel routine, short of breath w/ increased d-dimer, abd pain w/ vomiting x 2-3 days, no po contrast IV only, Omni 300 75ml was given TECHNIQUE AND FINDINGS CT arteriogram was done using 75 mL Omnipaque contrast. Sagittal and coronal MIP images were reconstructed. One or more of the following individualized dose reduction techniques were utilized for this examination: 1. Automated exposure control; 2. Adjustment of the mA and/or kV according to patient size; 3. Use of iterative reconstruction technique. Thyroid is homogeneous. There is no mediastinal adenopathy. There is a trace of pleural effusion on each side. There is mild atherosclerotic change in the aortic arch without a dissection. There are cysts in the liver. Visualized portion of the spleen is unremarkable. Adrenal glands are normal. There is dilatation of the upper pole calyx of the right kidney. There is mild atelectasis in the lung bases. There are changes from surgery in the left axilla. The study is negative for evidence of a pulmonary embolus. There is mild atelectasis in the lungs without other infiltrates. There is evidence of metastatic disease with mixed lucent and sclerotic bony lesions patient has had previous surgery in the cervical spine. COMPARISON Comparison is made with a CT abdomen from July 1999 16. IMPRESSION Bony metastatic disease similar to the previous study. Hepatic cysts. Dilatation the right renal collecting system incompletely evaluated Atelectasis in the lung bases. Negative for a pulmonary embolus. Electronically signed by: Job Guzman MD (Aug 25, 2016 16:49:33)
[2016-08-25] MEDS ORDERED: VANCOMYCIN HCL 250 MG PO SCH (17:00)
[2016-08-25] MEDS: VANCOMYCIN 250 MG/5 ML ORAL SOLUTION. PO SCH ×2 (17:00→21:28)
[2016-08-25] MEDS ORDERED: MAGNESIUM SULFATE 2GM 50 ML IV ONE (17:30)
[2016-08-25] MEDS: POTASSIUM CHLORIDE 8 MEQ TABLET.ER. PO SCH ×2 (17:44→21:29)
[2016-08-25] MEDS: AZTREONAM 1 GM in IV NORMAL SALINE 50ML 50 ML IV SCH (19:11)
[2016-08-25] MEDS ORDERED: IV NORMAL SALINE 1,000ML 1,000 ML IV PRN (19:15)
[2016-08-25] MEDS: HORIZANT 600 MG PO SCH (21:00)
[2016-08-25] MEDS ORDERED: CARVEDILOL 25 MG TABLET PO SCH (21:00)
[2016-08-25] MEDS ORDERED: CICLESONIDE NS SCH (21:00)
[2016-08-25] MEDS ORDERED: GABAPENTIN ENACARBIL 600 MG PO SCH (21:00)
[2016-08-25] MEDS: ACETAMINOPHEN PO SCH (21:00)
[2016-08-25] MEDS: TRAMADOL 50 MG TABLET. PO SCH (21:00)
[2016-08-25] MEDS: TRAMADOL PO SCH (21:00)
[2016-08-25] MEDS: ESTAZOLAM 2 MG PO SCH (21:00)
[2016-08-25] MEDS: PRAVASTATIN 20 MG TABLET. PO SCH (21:28)
[2016-08-25] MEDS: APIXABAN 5 MG TABLET. PO SCH (21:29)
[2016-08-26] VITALS (17 sets, daily range): BP systolic 82–149; BP diastolic 45–79
[2016-08-26] MEDS: AZTREONAM 1 GM in IV NORMAL SALINE 50ML 50 ML IV SCH ×4 (00:36→17:16)
[2016-08-26] MEDS: IV NORMAL SALINE 1,000ML 1,000 ML IV SCH ×2 (01:43→19:09)
[2016-08-26] MEDS: VANCOMYCIN 1.75 GM in IV NORMAL SALINE 500ML 500 ML IV SCH ×2 (03:41→15:17)
[2016-08-26] MEDS: LEVOTHYROXINE 100 MCG TABLET PO SCH (07:27)
[2016-08-26] MEDS ORDERED: POTASSIUM CHLORIDE 8 MEQ TABLET.ER. PO SCH (08:00)
[2016-08-26 08:32] LABS: BASO # 0.1 x10^3/uL (0.0-0.2); BASO % 1 % (0-3); EOS # 0.2 x10^3/uL (0.0-0.7); EOS % 2 % (0-3); HEMATOCRIT 37.3 % (36.0-47.0); HEMOGLOBIN 12.4 g/dL (12.0-15.5); LYMPH # 1.5 x10^3/uL (1.0-4.8); LYMPH % 17 % (24-48); MEAN CORPUSCULAR HEMOGLOBIN 32 pg (25-35); MEAN CORPUSCULAR HGB CONC 33 g/dL (31-37); MEAN CORPUSCULAR VOLUME 95 fL (79-100); MONO # 0.9 x10^3/uL (0.0-1.1); MONO % 10 % (0-9); NEUT # 6.5 x10^3uL (1.8-7.7); NEUT % 71 % (31-73); PLATELET COUNT 134 x10^3/uL (140-400); RED CELL DISTRIBUTION WIDTH 14.9 % (11.5-14.5); WHITE BLOOD COUNT 9.2 x10^3/uL (4.0-11.0)
[2016-08-26 08:43] LABS: CALCIUM 8.3 mg/dL (8.5-10.1); CREATININE 0.9 mg/dL (0.6-1.0); GFR 62.5; POTASSIUM 3.7 mmol/L (3.5-5.1)
[2016-08-26] MEDS: HORIZANT 600 MG PO SCH ×2 (09:00→21:17)
[2016-08-26] MEDS: VANCOMYCIN 250 MG/5 ML ORAL SOLUTION. PO SCH ×4 (09:00→21:19)
[2016-08-26] MEDS ORDERED: NON FORMULARY ITEM (Omeprazole Magnesium (Prilosec Otc) 1 TAB) PO SCH (09:00)
[2016-08-26] MEDS ORDERED: LEVAQUIN 500 MG IV SCH (09:00)
[2016-08-26] MEDS: EXEMESTANE 25 MG TABLET PO SCH (09:00)
[2016-08-26] MEDS ORDERED: [UNRECOGNIZED DRUG - OTHER] PO SCH (09:00)
[2016-08-26 09:05] LABS: MAGNESIUM 2.2 mg/dL (1.8-2.4)
[2016-08-26] MEDS: CYANOCOBALAMIN (VITAMIN B-12) 250 MCG TABLET PO SCH (09:31)
[2016-08-26] MEDS: CARVEDILOL 25 MG TABLET PO SCH ×2 (09:35→17:12)
[2016-08-26] MEDS: LACTOBACILLUS ACIDOPH & BULGAR 1 TABLET. PO SCH (09:38)
[2016-08-26] MEDS: CHOLECALCIFEROL (VITAMIN D3) 1,000 UNIT TABLET PO SCH (09:38)
[2016-08-26] MEDS: CETIRIZINE HCL 10 MG TABLET PO SCH (09:38)
[2016-08-26] MEDS: APIXABAN 5 MG TABLET. PO SCH ×2 (09:38→21:20)
[2016-08-26] MEDS: FERROUS SULFATE 325 MG TABLET PO SCH (09:38)
[2016-08-26] MEDS: OMEGA-3 FATTY ACIDS/FISH OIL 1,000 MG CAPSULE. PO SCH ×2 (09:39→21:21)
[2016-08-26] MEDS: TRAMADOL 50 MG TABLET. PO SCH ×2 (09:39→21:00)
[2016-08-26] MEDS: POTASSIUM CHLORIDE 8 MEQ TABLET.ER. PO SCH ×3 (09:40→21:21)
[2016-08-26] MEDS: MULTIVITAMIN with MINERAL TABLET. PO SCH (09:40)
[2016-08-26] MEDS: ACETAMINOPHEN PO SCH ×3 (09:40→21:23)
[2016-08-26] MEDS: TRAMADOL PO SCH ×3 (09:40→21:23)
[2016-08-26] MEDS: UBIDECARENONE 200 MG PO SCH (09:41)
--- NOTE | 2016-08-26 15:45 | HP ---
ADMIT DATE: 08/25/2016 HISTORY OF PRESENT ILLNESS: A 66-year-old female has a history obviously of breast cancer with mets. She was at home. She was extremely lethargic. was unable to arouse her. She became increasingly lethargic. The patient has gone through this multiple times before with sepsis and bladder infections, which put her in a state of encephalopathy. As a result of this, the patient was admitted to the hospital for further evaluation and treatment of her sepsis. She was brought in via EMS. She did have 5-10 white blood cells in her urine and her urine was very cloudy, possibly from another urosepsis type of situation with metabolic encephalopathy. PAST MEDICAL HISTORY: Chronic sinusitis, nosebleeds, cataract surgery, tonsillectomy. She has had history of chemo to brain. She has had history of stroke, CVA, TIAs, peripheral neuropathy, neurological surgery, numbness, cardiac disorders, cardiac symptoms of SVT since the age of 11, controlled with Coreg. She has had mitral valve murmur, CHF, CAD. She has been on chronic Eliquis therapy. Hypercholesterolemia, respiratory disorders, pulmonary emboli, sleep apnea, uses CPAP. GI problems including diarrhea, constipation, gastrointestinal symptoms of obesity, GERD. Breast cancer with mets, breast surgery. Genitourinary disorders, chemotherapy as well, kidney stones, urinary tract infections. 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 She has had history of fibromyalgia, arthritis, osteoarthritis, tendinosis, tendinitis, scoliosis, carpal tunnel syndrome, orthopedic surgery, joint replacement. Obsessive compulsive disorder, depression. Medical symptoms or disorder of anemia, cancer as noted, chemotherapy, Lyme's disease, influenza and pneumococcal vaccines are up to date. She has had multiple surgeries. She has had C. diff x 3, methicillin-resistant Staph in blood in 04/2015 and has had recent sinusitis. ALLERGIES: Keflex, cyclosporine, hydromorphone, nitrofurantoin, scopolamine and thimerosal. MEDICATIONS: Eliquis 5 mg, carvedilol 25 b.i.d., Zyrtec 10, vitamin D3, cranberry and sulfur, Omnaris nasal spray, vitamin B12, estazolam 2 mg at bedtime, exemestane 25 mg daily, ferrous sulfate, gabapentin 600 mg q.24h, lactobacillus, lisinopril 10, levothyroxine 100 mcg, Lovaza 2 capsules b.i.d., multivitamin, Prilosec, potassium chloride 10 mEq daily, pravastatin 20, SHELBY-e (adenosylmethionine sulfate tosylate) 400mg, tramadol 50 mg a day, tramadol p.r.n. q.6h, CoQ10 and vancomycin by mouth. The patient had been taking oral vancomycin for recent C. diff infection. SOCIAL HISTORY: Denies smoking, alcohol or drug use. FAMILY HISTORY: Unremarkable. REVIEW OF SYSTEMS: The patient is generally out of it, very confused, disoriented, not remembering trip to the hospital via EMS or having people pick her up from her house. PHYSICAL EXAMINATION: VITAL SIGNS: Blood pressure 114/60, respiratory rate 18, pulse 66, afebrile. HEENT: The patient's head was atraumatic, normocephalic. Eyes: PERRLA without jaundice. She was extremely pale. Mouth and throat were normal. NECK: Supple, without JVD or thyromegaly. LUNGS: Right lower lobe is diminished. CARDIOVASCULAR: Regular sinus rhythm, S1, S2, without murmur, rub, thrill, or extra sounds. ABDOMEN: Soft, nontender except for the left lower, left mid quadrant, there is marked tenderness noted. No masses were noted. Positive bowel sounds. EXTREMITIES: No clubbing or cyanosis. Trace edema noted and marked hypertrophy to the musculoskeletal system. NEUROLOGIC: Arousable, alert, but somewhat confused and lethargic at times. We will continue to monitor the patient on that as well. IMPRESSION AND PLAN: Urosepsis, sepsis, metabolic encephalopathy, breast cancer with mets, abdominal pain, anemia of chronic disease, urinary tract infection, elevated D-dimer, but she is on Eliquis and has a history of metastatic breast cancer. We will go ahead and place her on IV antibiotic therapy here in the ICU and make further evaluation once other results have returned. KYLE LAW MD DR: BELGICA/calixto JOB#: [id number] / [id number]
[2016-08-26] MEDS ORDERED: ACETAMINOPHEN/CODEINE 300/30MG TABLET PO PRN (17:45)
[2016-08-26] MEDS: ESTAZOLAM 2 MG PO SCH (21:16)
[2016-08-26] MEDS: DULOXETINE HCL 60 MG CAPSULE.DR. PO SCH (21:20)
[2016-08-26] MEDS: LISINOPRIL 5 MG TABLET. PO SCH (21:22)
[2016-08-26] MEDS: PRAVASTATIN 20 MG TABLET. PO SCH (21:22)
[2016-08-27] VITALS (15 sets, daily range): BP systolic 98–152; BP diastolic 57–98
[2016-08-27] MEDS: AZTREONAM 1 GM in IV NORMAL SALINE 50ML 50 ML IV SCH ×5 (00:15→23:17)
[2016-08-27] MEDS: VANCOMYCIN 1.75 GM in IV NORMAL SALINE 500ML 500 ML IV SCH ×2 (03:46→14:06)
[2016-08-27 04:25] LABS: VANC TR 16.1 mcg/mL (10.0-20.0)
[2016-08-27] MEDS: DULOXETINE HCL 60 MG CAPSULE.DR. PO SCH (07:24)
[2016-08-27] MEDS: APIXABAN 5 MG TABLET. PO SCH ×2 (07:24→21:20)
[2016-08-27] MEDS: CETIRIZINE HCL 10 MG TABLET PO SCH (07:24)
[2016-08-27] MEDS: FERROUS SULFATE 325 MG TABLET PO SCH (07:24)
[2016-08-27] MEDS: TRAMADOL 50 MG TABLET. PO SCH ×2 (07:24→07:28)
[2016-08-27] MEDS: LACTOBACILLUS ACIDOPH & BULGAR 1 TABLET. PO SCH (07:25)
[2016-08-27] MEDS: CARVEDILOL 25 MG TABLET PO SCH ×2 (07:25→17:20)
[2016-08-27] MEDS: OMEGA-3 FATTY ACIDS/FISH OIL 1,000 MG CAPSULE. PO SCH ×2 (07:25→21:21)
[2016-08-27] MEDS: POTASSIUM CHLORIDE 8 MEQ TABLET.ER. PO SCH ×3 (07:25→21:21)
[2016-08-27] MEDS: LEVOTHYROXINE 100 MCG TABLET PO SCH (07:25)
[2016-08-27] MEDS: MULTIVITAMIN with MINERAL TABLET. PO SCH (07:25)
[2016-08-27] MEDS: CHOLECALCIFEROL (VITAMIN D3) 1,000 UNIT TABLET PO SCH (07:25)
[2016-08-27] MEDS: EXEMESTANE 25 MG TABLET PO SCH (07:26)
[2016-08-27] MEDS: UBIDECARENONE 200 MG PO SCH (07:27)
[2016-08-27] MEDS: CYANOCOBALAMIN (VITAMIN B-12) 250 MCG TABLET PO SCH (07:27)
[2016-08-27] MEDS: HORIZANT 600 MG PO SCH ×2 (07:28→21:54)
[2016-08-27] MEDS: ACETAMINOPHEN PO SCH ×2 (08:06→14:06)
[2016-08-27] MEDS: TRAMADOL PO SCH ×2 (08:06→14:06)
[2016-08-27] MEDS: VANCOMYCIN PER PHARMACY MC PRN ×2 (08:11→08:13)
[2016-08-27] MEDS: IV NORMAL SALINE 1,000ML 1,000 ML IV SCH ×3 (08:41→23:16)
[2016-08-27] MEDS: MAGNESIUM CHLORIDE ER 64 MG TABLET.ER PO SCH (08:41)
[2016-08-27] MEDS: VANCOMYCIN 250 MG/5 ML ORAL SOLUTION. PO SCH ×4 (09:29→21:22)
[2016-08-27] MEDS ORDERED: TRAMADOL 50 MG TABLET. PO SCH (18:00)
[2016-08-27] MEDS: PRAVASTATIN 20 MG TABLET. PO SCH (21:21)
[2016-08-27] MEDS: LISINOPRIL 5 MG TABLET. PO SCH (21:21)
[2016-08-27] MEDS: ESTAZOLAM 2 MG PO SCH (21:22)
[2016-08-28] MEDS: VANCOMYCIN 1.75 GM in IV NORMAL SALINE 500ML 500 ML IV SCH (03:40)
--- NOTE | 2016-08-28 04:48 | PN ---
DATE: 08/27/2016 SUBJECTIVE: A 66-year-old female in with sepsis and the patient is on chemotherapy for her breast cancer with mets and that infected again. The patient was then treated with IV antibiotic therapy, seems to be making reasonably good progress overall. The patient's initial organism was E. coli. Final culture sensitivities are still pending. Apparently, blood cultures may have been positive, there was some rumor of such ([place]). OBJECTIVE: VITAL SIGNS: Blood pressure 150/90, respiratory rate 18, pulse 70, she is afebrile. GENERAL: The patient is alert and oriented. LUNGS: Diminished, primarily in the bases. CARDIOVASCULAR: Regular sinus rhythm. ABDOMEN: Soft, nontender. No rebound or guarding, positive bowel sounds. No hepatosplenomegaly. NEUROLOGIC: The patient is alert and oriented x 3. LABORATORY DATA: The patient's labs are basically unremarkable. Sodium, potassium, BUN and creatinine were all within normal lab range as well as the cardiac enzymes and lipase. The patient's potassium has come up and the patient has made excellent progress overall. IMPRESSION: Sepsis with metabolic encephalopathy, urinary tract infection, probable E. coli. Hypertension and hypokalemia. PLAN: Continue on IV antibiotics. Final culture reports have been indicated. The patient has been on chemotherapy for her mets, consequently is immunosuppressed as well. KYLE LAW MD DR: BELGICA/calixto JOB#: [id number] / [id number]
[2016-08-28 06:23] VITALS: BP 185/80
[2016-08-28] MEDS: AZTREONAM 1 GM in IV NORMAL SALINE 50ML 50 ML IV SCH ×2 (06:24→10:01)
[2016-08-28] MEDS ORDERED: TRAMADOL 50 MG TABLET. PO SCH ×2 (07:30→17:00)
[2016-08-28] MEDS: HORIZANT 600 MG PO SCH (08:24)
[2016-08-28] MEDS: OMEGA-3 FATTY ACIDS/FISH OIL 1,000 MG CAPSULE. PO SCH (08:25)
[2016-08-28] MEDS: CHOLECALCIFEROL (VITAMIN D3) 1,000 UNIT TABLET PO SCH (08:25)
[2016-08-28] MEDS: LACTOBACILLUS ACIDOPH & BULGAR 1 TABLET. PO SCH (08:26)
[2016-08-28] MEDS: CYANOCOBALAMIN (VITAMIN B-12) 250 MCG TABLET PO SCH (08:26)
[2016-08-28] MEDS: CETIRIZINE HCL 10 MG TABLET PO SCH (08:26)
[2016-08-28] MEDS: MULTIVITAMIN with MINERAL TABLET. PO SCH (08:26)
[2016-08-28] MEDS: MAGNESIUM CHLORIDE ER 64 MG TABLET.ER PO SCH (08:27)
[2016-08-28] MEDS: LEVOTHYROXINE 100 MCG TABLET PO SCH (08:27)
[2016-08-28] MEDS: POTASSIUM CHLORIDE 8 MEQ TABLET.ER. PO SCH (08:27)
[2016-08-28] MEDS: APIXABAN 5 MG TABLET. PO SCH (08:27)
[2016-08-28] MEDS: DULOXETINE HCL 60 MG CAPSULE.DR. PO SCH (08:27)
[2016-08-28] MEDS: VANCOMYCIN 250 MG/5 ML ORAL SOLUTION. PO SCH (08:28)
[2016-08-28] MEDS: FERROUS SULFATE 325 MG TABLET PO SCH (08:28)
[2016-08-28] MEDS: EXEMESTANE 25 MG TABLET PO SCH (08:38)
[2016-08-28] MEDS: UBIDECARENONE 200 MG PO SCH (08:39)
[2016-08-28] MEDS ORDERED: CARVEDILOL 25 MG TABLET PO SCH (11:30)
== END 2016-08-28 11:22 | disposition home or self-care (01) | DRG 871 ==
LOC: ICU 13:39
PROVIDERS: ADMIT Family Medicine; ATTEND Family Medicine
DX: A41.9 Sepsis, unspecified organism (principal); G93.41 Metabolic encephalopathy; N39.0 Urinary tract infection, site not specified; B96.20 Unspecified Escherichia coli [E. coli] as the cause of diseases classified elsewhere; C50.919 Malignant neoplasm of unspecified site of unspecified female breast; D63.8 Anemia in other chronic diseases classified elsewhere; E78.00 Pure hypercholesterolemia, unspecified; E87.6 Hypokalemia; I25.10 Atherosclerotic heart disease of native coronary artery without angina pectoris; I11.0 Hypertensive heart disease with heart failure; F42.9 Obsessive-compulsive disorder, unspecified; I50.9 Heart failure, unspecified; J32.9 Chronic sinusitis, unspecified; M41.9 Scoliosis, unspecified; M79.7 Fibromyalgia; F32.9 Major depressive disorder, single episode, unspecified; G56.00 Carpal tunnel syndrome, unspecified upper limb; G62.9 Polyneuropathy, unspecified; K59.00 Constipation, unspecified; M19.90 Unspecified osteoarthritis, unspecified site; Z85.3 Personal history of malignant neoplasm of breast; Z85.830 Personal history of malignant neoplasm of bone; Z86.711 Personal history of pulmonary embolism; Z86.73 Personal history of transient ischemic attack (TIA), and cerebral infarction without residual deficits; Z92.21 Personal history of antineoplastic chemotherapy; Z87.442 Personal history of urinary calculi; Z88.1 Allergy status to other antibiotic agents; Z88.5 Allergy status to narcotic agent; Z88.8 Allergy status to other drugs, medicaments and biological substances
CPT/HCPCS: 36415; 71010; 74174; 80048; 80053; 80202; 81001; 82150; 82550; 83605; 83690; 83735; 84484; 85027; 85379; 86140; 87040; 87086; 87186; 87205; 87641; J2405; J3370; J3475; J3490; J7040; Q9967; J7030

== ENCOUNTER → 2017-04-04 | Outpatient (CLI) | payer BC, MEDICARE ==
[2017-01-09 22:15] VITALS: BP 137/87
[~2017-04-04] MED LIST changes: -APIX5TAB PO; +APIX5TAB3 PO; -CICL12.5 NS; +CICL12.52 NS; -ESCI20TA10 PO; +GABA600T91 PO; -LEVO500T38 IV; +LEVO500T59 IV; +LEXAPRO20 MG PO; +OMEP20TA63 PO; +POTA10TA5 PO; +S AD PO; -S-AD400T2 PO; -TRAM-29 PO; +TRAM-48 PO; -TRAM1TAB49 PO; +TRAM1TAB56 PO; -UBID200C4 PO; +UBID200C7 PO; +VANC125S PO
--- NOTE | 2017-04-04 16:10 | RAD ---
Ultrasound Indication: Hematuria last week the last 24 hours. Technique: Grayscale, color Doppler and spectral waveform ultrasound images of the kidneys obtained. Comparison: CT abdomen and pelvis from 08/25/2016 Findings: The right kidney measures 10.8 x 6.3 x 5.9 cm with thin cortex and pelvocaliectasis. Blood flow is seen in the renal hilum. The left kidney measures 11.5 x 6.3 x 6.2 cm with thin cortex and pelvocaliectasis. Blood flow is seen in the renal hilum. No focal renal lesions. Bladder is optimally distended. However, no ureteral jets were visualized may be secondary to patient not well-hydrated. Impression: Bilateral pelvocaliectasis with cortical thinning also seen on previous CT abdomen and pelvis from 08/25/2016. Consider CT abdomen and pelvis if clinically necessary.
== END | disposition home or self-care (01) ==
LOC: US 13:30
PROVIDERS: ATTEND Obstetrics & Gynecology Gynecology
DX: R31.9 Hematuria, unspecified (principal)
CPT/HCPCS: 76770

== ENCOUNTER 2017-04-22 13:30 | Emergency (ER) | payer BC, MEDICARE ==
[~2017-04-22] VITALS: Ht 330.2 cm; Wt 121.4 kg
[2017-04-22 14:57] LABS: BASO % 1 % (0-3); EOS % 1 % (0-3); HEMATOCRIT 40.9 % (36.0-47.0); LYMPH # 0.6 x10^3/uL (1.0-4.8); LYMPH % 16 % (24-48); MEAN CORPUSCULAR HEMOGLOBIN 36 pg (25-35); MEAN CORPUSCULAR HGB CONC 34 g/dL (31-37); MEAN CORPUSCULAR VOLUME 106 fL (79-100); MONO # 0.6 x10^3/uL (0.0-1.1); MONO % 15 % (0-9); NEUT # 2.7 x10^3uL (1.8-7.7); NEUT % 68 % (31-73); PLATELET COUNT 107 x10^3/uL (140-400); RED BLOOD COUNT 3.84 x10^6/uL (3.50-5.40); RED CELL DISTRIBUTION WIDTH 15.7 % (11.5-14.5)
--- NOTE | 2017-04-22 15:02 | EKG ---
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
[2017-04-22 15:16] LABS: ALBUMIN 3.7 g/dL (3.4-5.0); ALBUMIN/GLOBULIN RATIO 0.9 (1.0-1.7); ALK PHOS 91 U/L (46-116); ALT (SGPT) 28 U/L (14-59); ANION GAP 8 (6-14); AST (SGOT) 32 U/L (15-37); BLOOD UREA NITROGEN 14 mg/dL (7-20); BUN/CREATININE RATIO 13 (6-20); CARBON DIOXIDE 29 mmol/L (21-32); CHLORIDE 102 mmol/L (98-107); CREATINE KINASE 61 U/L (26-192); CREATININE 1.1 mg/dL (0.6-1.0); GFR 49.4; GLUCOSE 109 mg/dL (70-99); SODIUM 139 mmol/L (136-145); TOTAL BILIRUBIN 0.5 mg/dL (0.2-1.0); TOTAL PROTEIN 7.6 g/dL (6.4-8.2)
--- NOTE | 2017-04-22 15:23 | RAD ---
CT head: Indication: Fall Technique: CT head without IV contrast Comparison: Previous study from 2015 Findings: No pathologic extra-axial or intra-axial fluid collection. The ventricles and basal cisterns are within normal limits. No acute intracranial bleed. No midline shift. No focal loss of stock-white differentiation. Orbits are within normal limits. No acute calvarial fractures. Visualized paranasal sinuses and mastoid air cells are clear. Impression: No acute intracranial bleed or calvarial fracture. CT cervical spine Indication: Fall Technique: CT cervical spine without IV contrast with multiplanar reformats. Comparison: None Findings: Status post anterior fusion at C5-C6 and C7 vertebral bodies. No compression deformities. Atlantoaxial joint interval is preserved with degenerative changes. Cervical spine is in normal anatomic alignment. No acute fractures. The facet joints are in normal anatomic alignment with mild to moderate upper cervical spine facet arthropathy. Patulous upper thoracic esophagus. Motion artifact identified in the upper thorax limiting evaluation of visualized lungs.. Impression: 1. No acute fractures. 2. Status post anterior fusion of C5-C6 vertebral bodies. PQRS Compliance Statement: One or more of the following individualized dose reduction techniques were utilized for this examination: 1. Automated exposure control 2. Adjustment of the mA and/or kV according to patient size 3. Use of iterative reconstruction technique
--- NOTE | 2017-04-22 15:43 | RAD ---
AP portable chest radiograph 04/22/2017 Clinical History: Unexplained dizziness. An AP portable erect digital radiograph of the chest was obtained. Comparison study is dated 08/25/2016. And anterior plate and bone screws overlies the mid and lower cervical spine, unchanged. A right internal jugular [id number]-[id number] type catheter is unchanged in position. Surgical clips overlie both axilla. The cardiac silhouette is mild to moderately enlarged. The thoracic aorta is tortuous. No acute pulmonary infiltrate is seen. No pleural effusion or pneumothorax is noted. The osseous structures are unchanged. Impression: No acute abnormality is seen.
[2017-04-22 15:46] LABS: AMPHETAMINE/METHAMPHETAMINE NEG (NEG); BARBITURATES NEG (NEG); BENZODIAZEPINES POS (NEG); CANNABINOIDS NEG (NEG); COCAINE NEG (NEG); METHADONE NEG (NEG); OPIATES POS (NEG); PHENCYCLIDINE NEG (NEG)
[2017-04-22 15:52] LABS: BACTERIA,URINE 0 /HPF (0-FEW); BILIRUBIN,URINE NEG (NEG); CLARITY,URINE CLEAR; COLOR,URINE YELLOW; GLUCOSE,URINE NEG (NEG); NITRITE,URINE NEG (NEG); SQUAMOUS EPITHELIAL CELL,UR MOD /LPF; UROBILINOGEN,URINE 0.2 mg/dL (0.2 mg/dL)
[2017-04-22 15:56] LABS: INFLUENZA A PATIENT POSITIVE (NEGATIVE); INFLUENZA B PATIENT NEGATIVE (NEGATIVE)
[2017-04-22] MEDS ORDERED: IV NORMAL SALINE 1,000ML 1,000 ML IV ONE (16:15)
--- NOTE | 2017-04-22 16:19 | PHYS DOC ---
Past History Past Medical History: Cancer, CHF, CVA, Depression, Fibromyalgia, GERD, High Cholesterol, Hypertension, Kidney Stones, UTI, Other Past Surgical History: Cancer Surgery, Other Alcohol Use: None Drug Use: None Adult General Chief Complaint Chief Complaint: DIZZY/LIGHT HEADED HPI HPI 67-year-old male patient complaining of sore throat and nasal congestion and cough since yesterday with generalized itchiness and dizziness. Patient had a fall when she was going to go to the bathroom today without loss of consciousness. Patient has not had the same symptoms about 2 weeks ago and diagnosed with obtaining flu test. Patient denies fever but does state she usually doesn't get fevers with infection. Patient denies chest pain, shortness of breath, focal neuro deficit, vomiting and diarrhea. Patient called her primary care physician recommended direct admission to the hospital because of lack of available patient brought in by EMS to ER. Review of Systems Review of Systems Constitutional: Denies fever or chills [] Eyes: Denies change in visual acuity, redness, or eye pain [] HENT: Reports nasal congestion and sore throat [] Respiratory: Reports cough and shortness of breath [] Cardiovascular: No additional information not addressed in HPI [] GI: Denies abdominal pain, nausea, vomiting, bloody stools or diarrhea [] : Denies dysuria or hematuria [] Musculoskeletal: Denies back pain or joint pain [] Integument: Denies rash or skin lesions [] Neurologic: Denies headache, focal weakness or sensory changes [] Endocrine: Denies polyuria or polydipsia [] All other systems were reviewed and found to be within normal limits, except as documented in this note. Current Medications Current Medications Current Medications Medications (Trade) Dose Ordered Sig/Efrem Start Time Stop Time Status Last Admin Dose Admin Oseltamivir Phosphate (Tamiflu) 75 mg 1X ONCE 04/22/17 16:15 04/22/17 16:16 UNV Sodium Chloride 1,000 ml @ 1,000 mls/hr 1X ONCE 04/22/17 16:15 04/22/17 17:14 UNV Allergies Allergies Allergies Coded Allergies Type Severity Reaction Last Updated Verified cephalexin Allergy Intermediate 04/05/15 Yes cyclosporine Allergy Intermediate 04/05/15 Yes hydromorphone Allergy Intermediate 04/05/15 Yes nitrofurantoin Allergy Intermediate 04/05/15 Yes scopolamine Allergy Intermediate 02/17/15 Yes thimerosal Allergy Intermediate 02/17/15 Yes Physical Exam Physical Exam Constitutional: Well developed, mild distress, non-toxic appearance. [] HENT: Normocephalic, atraumatic, bilateral external ears normal, oropharynx with erythema and edema, no oral exudates, nose normal. [] Eyes: PERRLA, EOMI, conjunctiva normal, no discharge. [] Neck: Normal range of motion, no tenderness, supple, no stridor. [] Cardiovascular:Heart rate regular rhythm, no murmur [] Lungs & Thorax: Bilateral breath sounds clear to auscultation [] Abdomen: Bowel sounds normal, soft, no tenderness, no masses, no pulsatile masses. [] Skin: Warm, dry, no erythema, no rash. [] Back: No tenderness, no CVA tenderness. [] Extremities: No tenderness, no cyanosis, no clubbing, ROM intact, no edema. [] Neurologic: Alert and oriented X 3, normal motor function, normal sensory function, no focal deficits noted. [] Psychologic: Affect normal, judgement normal, mood normal. [] Current Patient Data Lab Results Laboratory Tests Test 04/22/17 14:33 04/22/17 15:15 04/22/17 15:20 White Blood Count 4.0 x10^3/uL (4.0-11.0) Red Blood Count 3.84 x10^6/uL (3.50-5.40) Hemoglobin 14.0 g/dL (12.0-15.5) Hematocrit 40.9 % (36.0-47.0) Mean Corpuscular Volume 106 fL (79-100) H Mean Corpuscular Hemoglobin 36 pg (25-35) H Mean Corpuscular Hemoglobin Concent 34 g/dL (31-37) Red Cell Distribution Width 15.7 % (11.5-14.5) H Platelet Count 107 x10^3/uL (140-400) L Neutrophils (%) (Auto) 68 % (31-73) Lymphocytes (%) (Auto) 16 % (24-48) L Monocytes (%) (Auto) 15 % (0-9) H Eosinophils (%) (Auto) 1 % (0-3) Basophils (%) (Auto) 1 % (0-3) Neutrophils # (Auto) 2.7 x10^3uL (1.8-7.7) Lymphocytes # (Auto) 0.6 x10^3/uL (1.0-4.8) L Monocytes # (Auto) 0.6 x10^3/uL (0.0-1.1) Eosinophils # (Auto) 0.0 x10^3/uL (0.0-0.7) Basophils # (Auto) 0.0 x10^3/uL (0.0-0.2) Prothrombin Time 11.6 SEC (9.4-11.4) H Prothrombin Time INR 1.1 (0.9-1.1) Sodium Level 139 mmol/L (136-145) Potassium Level 4.0 mmol/L (3.5-5.1) Chloride Level 102 mmol/L (98-107) Carbon Dioxide Level 29 mmol/L (21-32) Anion Gap 8 (6-14) Blood Urea Nitrogen 14 mg/dL (7-20) Creatinine 1.1 mg/dL (0.6-1.0) H Estimated GFR (Cockcroft-Gault) 49.4 BUN/Creatinine Ratio 13 (6-20) Glucose Level 109 mg/dL (70-99) H Lactic Acid Level 1.3 mmol/L (0.4-2.0) Calcium Level 9.0 mg/dL (8.5-10.1) Magnesium Level 2.0 mg/dL (1.8-2.4) Total Bilirubin 0.5 mg/dL (0.2-1.0) Aspartate Amino Transferase (AST) 32 U/L (15-37) Alanine Aminotransferase (ALT) 28 U/L (14-59) Alkaline Phosphatase 91 U/L (46-116) Creatine Kinase 61 U/L (26-192) Creatine Kinase MB (Mass) < 0.5 ng/mL (0.0-3.6) Creatine Kinase MB Relative Index 0.8 % (0-4) Troponin I Quantitative < 0.017 ng/mL (0-0.055) NM-Wge-O-Type Natriuretic Peptide 871 pg/mL (0-124) H Total Protein 7.6 g/dL (6.4-8.2) Albumin 3.7 g/dL (3.4-5.0) Albumin/Globulin Ratio 0.9 (1.0-1.7) L Influenza Type A (Rapid) Positive (NEGATIVE) Influenza Type B (Rapid) Negative (NEGATIVE) Urine Collection Type Unknown Urine Color Yellow Urine Clarity Clear Urine pH 7.0 Urine Specific [place] 1.015 Urine Protein Neg (NEG-TRACE) Urine Glucose (UA) Neg mg/dL (NEG) Urine Ketones (Stick) Neg mg/dL (NEG) Urine Blood Neg (NEG) Urine Nitrite Neg (NEG) Urine Bilirubin Neg (NEG) Urine Urobilinogen Dipstick 0.2 mg/dL (0.2 mg/dL) Urine Leukocyte Esterase Neg (NEG) Urine RBC 1-2 /HPF (0-2) Urine WBC 1-4 /HPF (0-4) Urine Squamous Epithelial Cells Mod /LPF Urine Bacteria 0 /HPF (0-FEW) Urine Opiates Screen Pos (NEG) Urine Methadone Screen Neg (NEG) Urine Barbiturates Neg (NEG) Urine Phencyclidine Screen Neg (NEG) Urine Amphetamine/Methamphetamine Neg (NEG) Urine Benzodiazepines Screen Pos (NEG) Urine Cocaine Screen Neg (NEG) Urine Cannabinoids Screen Neg (NEG) Urine Ethyl Alcohol Neg (NEG) EKG EKG [EKG interpreted by me. EKG at 1445 showed sinus rhythm at rate of 79 with occasional PVC, left axis deviation, poor R-wave practicing anterolateral leads] Radiology/Procedures Radiology/Procedures Chest x ray and CT head was unremarkable[] Course & Med Decision Making Course & Med Decision Making Pertinent Labs and Imaging studies reviewed. (See chart for details) Initial patient in ER showed 67-year-old male patient with complaining of flulike symptoms since yesterday and dizziness and one episode of 4 at home. Patient had exposure to influenza 2 weeks ago. Patient had positive fluid wave with unremarkable other test. Patient was sent by her primary care physician for hospitalization but patient doesn't want to stay at hospital. Dr. Crabtree informed at 1613 and agreed with plan of care. Patient states she had hydrocodone at home and doesn't want pain medication. Plan to give Tamiflu and IV fluid and discharge patient home. Dragon Disclaimer Dragon Disclaimer This electronic medical record was generated, in whole or in part, using a voice recognition dictation system. Departure Departure: Impression: Primary Impression: Influenza A Additional Impressions: Dizziness Fall at home Disposition: HOME, SELF-CARE (At 1640) Condition: IMPROVED Referrals: KYLE CRABTREE MD (PCP) Patient Instructions: Dizziness, Influenza A (H1N1) Additional Instructions: Take Plenty of liquids, continue home medication Follow-up with your primary care physician in 2 or 3 days Return if not getting better Scripts Ondansetron (ZOFRAN ODT) 4 Mg Tab.rapdis 1 TAB SL Q8HRS, #15 TAB Prov: SELIN GARG MD 04/22/17 Benzonatate (TESSALON PERLE) 100 Mg Capsule 1 CAP PO TID, #30 CAP Prov: SELIN GARG MD 04/22/17 Oseltamivir Phosphate (TAMIFLU) 75 Mg Capsule 1 CAP PO BID, #10 CAP Prov: SELIN GARG MD 04/22/17 Problem Qualifiers SELIN GARG MD Apr 22, 2017 16:19
[2017-04-22] MEDS ORDERED: BENZ100C PO (16:21)
[2017-04-22] MEDS ORDERED: OSEL75CA PO (16:21)
[2017-04-22] MEDS ORDERED: ONDA4TAB10 SL (16:21)
[2017-04-22] MEDS ORDERED: OSELTAMIVIR 75 MG CAPSULE PO ONE (16:30)
[2017-04-22 17:01] VITALS: BP 176/86
== END 2017-04-22 17:01 | disposition home or self-care (01) ==
LOC: ER 13:30
DX: J09.X2 Influenza due to identified novel influenza A virus with other respiratory manifestations (principal); R42 Dizziness and giddiness; I11.0 Hypertensive heart disease with heart failure; I50.9 Heart failure, unspecified; E78.00 Pure hypercholesterolemia, unspecified; F32.9 Major depressive disorder, single episode, unspecified; M79.7 Fibromyalgia; K21.9 Gastro-esophageal reflux disease without esophagitis; Z87.442 Personal history of urinary calculi; Z86.73 Personal history of transient ischemic attack (TIA), and cerebral infarction without residual deficits; Z88.1 Allergy status to other antibiotic agents; Z88.5 Allergy status to narcotic agent; Z88.8 Allergy status to other drugs, medicaments and biological substances; W19.XXXA Unspecified fall, initial encounter; Y93.89 Activity, other specified; Y99.8 Other external cause status; Y92.002 Bathroom of unspecified non-institutional (private) residence as the place of occurrence of the external cause
CPT/HCPCS: 36415; 36556; 70450; 71010; 72125; 80053; 80307; 81001; 82553; 83605; 83735; 83880; 84484; 85025; 85610; 87040; 87804; 93005; 96360; 99285-25; G0479; J7030

== ENCOUNTER 2017-12-18 09:15 | Emergency (ER) | payer BC, MEDICARE ==
[~2017-12-18 09:15] MED LIST changes: +BENZ100C PO; -FERR-26 PO; +FERR325T14 PO; +ONDA4TAB10 SL; +OSEL75CA PO
[2017-12-18] MEDS ORDERED: IV NORMAL SALINE 1,000ML 1,000 ML IV ONE (09:30)
--- NOTE | 2017-12-18 09:57 | ED.ADGEN ---
Past History Past Medical History: Cancer, CHF, CVA, Depression, Fibromyalgia, GERD, High Cholesterol, Hypertension, Kidney Stones, UTI, Other Past Surgical History: Cancer Surgery, Other Alcohol Use: None Drug Use: None Adult General Chief Complaint Chief Complaint Episodic dizziness HPI HPI Patient is a 67-year-old female with history of metastatic breast cancer and CVA presents acute onset episodic dizziness described as vertigo starting approximately 90 minutes prior to ED arrival. Patient describes nystagmus with standing vision movement, feeling off balance. No focal extremity weakness or loss of sensation. Also reports simple headache described as crawling and migrating to bitemporal region. Symptoms are improved in part by remaining still. Patient has had a total of 3 episodes. Symptoms are not associated with nausea or vomiting. No prior episodes of vertigo. Denies tinnitus, hearing loss , acute neck pain, chest pain, palpitations shortness of breath.. Recent hematuria, but no frequency urgency. No fever chills or sweats. Patient's local PCP is Dr. Toro. Patient's oncologist is Dr. Paul[] Review of Systems Review of Systems Constitutional: Denies fever or chills [] Eyes: Denies change in visual acuity, redness, or eye pain [] HENT: Denies nasal congestion or sore throat [] Respiratory: Denies cough or shortness of breath [] Cardiovascular: No additional information not addressed in HPI [] GI: Denies abdominal pain, nausea, vomiting, bloody stools or diarrhea [] : Denies dysuria or hematuria [] Musculoskeletal: Denies back pain or joint pain [] Integument: Denies rash or skin lesions [] Neurologic: Denies headache, focal weakness or sensory changes [] Endocrine: Denies polyuria or polydipsia [] All other systems were reviewed and found to be within normal limits, except as documented in this note. Current Medications Current Medications Current Medications Medications (Trade) Dose Ordered Sig/Efrem Start Time Stop Time Status Last Admin Dose Admin Iohexol (Omnipaque 300 Mg/ml) 75 ml 1X ONCE 12/18/17 10:30 12/18/17 10:31 DC 12/18/17 10:31 75 ML Sodium Chloride 1,000 ml @ 1,000 mls/hr 1X ONCE 12/18/17 09:30 12/18/17 10:30 DC 12/18/17 09:59 1,000 MLS/HR Allergies Allergies Allergies Coded Allergies Type Severity Reaction Last Updated Verified cephalexin Allergy Intermediate 12/18/17 Yes cyclosporine Allergy Intermediate 12/18/17 Yes hydromorphone Allergy Intermediate 12/18/17 Yes nitrofurantoin Allergy Intermediate 12/18/17 Yes scopolamine Allergy Intermediate 12/18/17 Yes thimerosal Allergy Intermediate 12/18/17 Yes Physical Exam Physical Exam Constitutional: Well developed, well nourished, no acute distress, non-toxic appearance. [] HENT: Normocephalic, atraumatic, bilateral external ears normal, oropharynx moist, no oral exudates, nose normal. [] Eyes: PERRLA, EOMI, conjunctiva normal, no discharge. [] Neck: Normal range of motion, no tenderness, supple, no stridor. [] Cardiovascular:Heart rate regular rhythm, no murmur [] Lungs & Thorax: Bilateral breath sounds clear to auscultation [] Abdomen: Bowel sounds normal, soft, no tenderness, no masses, no pulsatile masses. [] Skin: Warm, dry, no erythema, no rash. [] Back: No tenderness, no CVA tenderness. [] Extremities: No tenderness, no cyanosis, no clubbing, ROM intact, no edema. [] Neurologic: Alert and oriented X 3, normal motor function, normal sensory function, no focal deficits noted. [] Psychologic: Affect normal, judgement normal, mood normal. [] Current Patient Data Vital Signs Vital Signs Date Time Temp Pulse Resp B/P (MAP) Pulse Ox O2 Delivery O2 Flow Rate FiO2 12/18/17 09:20 98.3 79 20 91 Room Air Lab Results Laboratory Tests Test 12/18/17 09:50 12/18/17 11:17 White Blood Count 8.2 x10^3/uL (4.0-11.0) Red Blood Count 3.63 x10^6/uL (3.50-5.40) Hemoglobin 12.0 g/dL (12.0-15.5) Hematocrit 36.0 % (36.0-47.0) Mean Corpuscular Volume 99 fL (79-100) Mean Corpuscular Hemoglobin 33 pg (25-35) Mean Corpuscular Hemoglobin Concent 33 g/dL (31-37) Red Cell Distribution Width 15.7 % (11.5-14.5) H Platelet Count 161 x10^3/uL (140-400) Neutrophils (%) (Auto) 67 % (31-73) Lymphocytes (%) (Auto) 24 % (24-48) Monocytes (%) (Auto) 7 % (0-9) Eosinophils (%) (Auto) 2 % (0-3) Basophils (%) (Auto) 1 % (0-3) Neutrophils # (Auto) 5.4 x10^3uL (1.8-7.7) Lymphocytes # (Auto) 1.9 x10^3/uL (1.0-4.8) Monocytes # (Auto) 0.6 x10^3/uL (0.0-1.1) Eosinophils # (Auto) 0.2 x10^3/uL (0.0-0.7) Basophils # (Auto) 0.1 x10^3/uL (0.0-0.2) Sodium Level 141 mmol/L (136-145) Potassium Level 3.8 mmol/L (3.5-5.1) Chloride Level 103 mmol/L (98-107) Carbon Dioxide Level 28 mmol/L (21-32) Anion Gap 10 (6-14) Blood Urea Nitrogen 22 mg/dL (7-20) H Creatinine 0.8 mg/dL (0.6-1.0) Estimated GFR (Cockcroft-Gault) 71.3 BUN/Creatinine Ratio 28 (6-20) H Glucose Level 106 mg/dL (70-99) H Calcium Level 9.1 mg/dL (8.5-10.1) Total Bilirubin 0.4 mg/dL (0.2-1.0) Aspartate Amino Transferase (AST) 28 U/L (15-37) Alanine Aminotransferase (ALT) 25 U/L (14-59) Alkaline Phosphatase 136 U/L (46-116) H Troponin I Quantitative < 0.017 ng/mL (0-0.055) Total Protein 6.6 g/dL (6.4-8.2) Albumin 3.0 g/dL (3.4-5.0) L Albumin/Globulin Ratio 0.8 (1.0-1.7) L Urine Collection Type U cath Urine Color Yellow Urine Clarity Clear Urine pH 5.5 Urine Specific [place] 1.010 Urine Protein Neg (NEG-TRACE) Urine Glucose (UA) Neg mg/dL (NEG) Urine Ketones (Stick) Neg mg/dL (NEG) Urine Blood Neg (NEG) Urine Nitrite Neg (NEG) Urine Bilirubin Neg (NEG) Urine Urobilinogen Dipstick 0.2 mg/dL (0.2 mg/dL) Urine Leukocyte Esterase Neg (NEG) Urine RBC 0 /HPF (0-2) Urine WBC Occ /HPF (0-4) Urine Squamous Epithelial Cells Occ /LPF Urine Transitional Epithelial Cells Occ /LPF Urine Bacteria 0 /HPF (0-FEW) EKG EKG [EKG: Normal sinus rhythm, no acute ST-T wave changes.] Radiology/Procedures Radiology/Procedures [CT head/CT angiogram head and neck: No acute findings per radiology report. Chest x-ray: No acute cardiopulmonary findings per radiology report] Course & Med Decision Making Course & Med Decision Making Pertinent Labs and Imaging studies reviewed. (See chart for details) [Patient with reproducible episodic dizziness worse with position change. Symptoms significant improved in the emergency department. No focal neurologic deficits other symptoms suggestive of stroke. Blood pressure stable. Lab work, imaging studies otherwise unremarkable. PCP/into the follow-up recommended. Home safety instructions provided. Return precautions reviewed. ] Final Impression Final Impression [#1 dizziness #2 vertigo] Dragon Disclaimer Dragon Disclaimer This electronic medical record was generated, in whole or in part, using a voice recognition dictation system. ANDREW ALONZO DO Dec 18, 2017 09:57
[2017-12-18 10:05] LABS: BASO # 0.1 x10^3/uL (0.0-0.2); BASO % 1 % (0-3); EOS # 0.2 x10^3/uL (0.0-0.7); EOS % 2 % (0-3); LYMPH # 1.9 x10^3/uL (1.0-4.8); LYMPH % 24 % (24-48); MEAN CORPUSCULAR HEMOGLOBIN 33 pg (25-35); MEAN CORPUSCULAR HGB CONC 33 g/dL (31-37); MEAN CORPUSCULAR VOLUME 99 fL (79-100); MONO # 0.6 x10^3/uL (0.0-1.1); MONO % 7 % (0-9); NEUT # 5.4 x10^3uL (1.8-7.7); NEUT % 67 % (31-73); PLATELET COUNT 161 x10^3/uL (140-400); RED BLOOD COUNT 3.63 x10^6/uL (3.50-5.40); RED CELL DISTRIBUTION WIDTH 15.7 % (11.5-14.5); WHITE BLOOD COUNT 8.2 x10^3/uL (4.0-11.0)
--- NOTE | 2017-12-18 10:12 | EKG ---
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
[2017-12-18 10:18] LABS: ALBUMIN/GLOBULIN RATIO 0.8 (1.0-1.7); CALCIUM 9.1 mg/dL (8.5-10.1); CREATININE 0.8 mg/dL (0.6-1.0); GFR 71.3; POTASSIUM 3.8 mmol/L (3.5-5.1); TOTAL BILIRUBIN 0.4 mg/dL (0.2-1.0); TOTAL PROTEIN 6.6 g/dL (6.4-8.2)
--- NOTE | 2017-12-18 10:26 | RAD ---
EXAM: AP Chest DATE: 12/18/2017 9:32 AM INDICATION: SHORT OF AIR COMPARISON: No Prior FINDINGS: Right IJ port-a-cath tip terminates over the right atrium. The heart is not enlarged. Mediastinal and hilar contours are normal. No focal parenchymal airspace opacity. No pleural effusion or pneumothorax. Axillary surgical clips are seen bilaterally. Chronic left scapular deformity possibly from old fracture. IMPRESSION: 1. No radiographic evidence for acute cardiopulmonary process. Electronically signed by: Eugenio Rasheed MD (12/18/2017 10:22 AM) [facility]
[2017-12-18] MEDS ORDERED: IOHEXOL 300 MG/ML 75 ML VIAL. IV ONE (10:30)
--- NOTE | 2017-12-18 10:44 | RAD ---
CT head without intravenous contrast History: Headache and dizziness. Comparison: CT head April 22, 2017. Technique: Axial images are obtained of the head from the skull base through the vertex without IV contrast. Exposure: One or more of the following individualized dose reduction techniques were utilized for this examination: 1. Automated exposure control 2. Adjustment of the mA and/or kV according to patient size 3. Use of iterative reconstruction technique Findings: The ventricles are appropriate in size, shape, and location for the patient's age. No obvious intracranial mass, mass-effect, midline shift, hemorrhage or obvious acute infarction is identified. Basilar cisterns are patent. Bone windows demonstrate no acute calvarial abnormality. Mild left maxillary sinus disease is seen. Impression: 1. No acute intracranial process. Please note that CT can be relatively insensitive to acute ischemic infarction for up to 24 hours after symptom onset. 2. Mild left maxillary sinus disease. Electronically signed by: Darinel Gallagher MD (12/18/2017 10:40 AM) [id number]
[2017-12-18 11:05] VITALS: BP 149/81
--- NOTE | 2017-12-18 11:41 | RAD ---
CT angiogram of the neck with intravenous contrast and CT angiogram of the head with intravenous contrast History: Headaches and dizziness. History of stroke. Comparison: CT head December 18, 2017. Technique: After administration of intravenous contrast, 75 mL Omnipaque-300, CT angiogram of the neck with attention to the arteries was performed. Axial 2-D reconstructions were obtained. Rotating 3-D volume rendered reconstructions of the neck arteries were also obtained. Sagittal and coronal 3-D MIPS were obtained of the neck arteries. Using the same bolus, CT angiogram of the head with attention to the arteries was performed. Axial 2-D reconstructions were obtained. Sagittal and coronal 3-D MIPS were obtained of the arteries. Rotating volume rendered reconstructions of the intracranial arteries were also obtained. Exposure: One or more of the following individualized dose reduction techniques were utilized for this examination: 1. Automated exposure control 2. Adjustment of the mA and/or kV according to patient size 3. Use of iterative reconstruction technique Findings: CTA of the neck: Conventional three-vessel aortic arch is seen. Right brachiocephalic artery is patent. Right common carotid artery is patent. Mild, focal calcified and noncalcified atherosclerotic plaquing is seen involving the right carotid bulb. Cervical right internal carotid artery is patent. Right external carotid artery is patent. Left common carotid artery is patent. Cervical left internal and left external carotid arteries are patent. Minimal calcified and noncalcified plaquing is seen involving the left carotid bulb. Both vertebral arteries are patent. Incompletely seen is right chest port and catheter. Thyroid is symmetric. Airway is patent. No neck lymphadenopathy is seen. Bilateral parotid and submandibular gland are symmetric. ACDF changes are seen at C5 7. Multilevel degeneration is present in the visualized spinal. CTA of the head: Intracranial portions of both vertebral arteries are patent. Basilar artery is patent. Both carotid siphons demonstrate mild calcified atherosclerotic plaquing. Terminal portions of both internal carotid arteries are patent. Bilateral anterior, middle, and posterior cerebral arteries are patent. No intracranial aneurysm is identified. Anterior communicating artery is seen. A hypoplastic left posterior communicating artery is thought visualized. Right posterior communicating artery is not confidently visualized. No intracranial aneurysm is appreciated. Impression: 1. Negative CT angiogram of the neck and head. Stenosis calculations for CT, MR and conventional angiography are based upon measurement of the distal ICA diameter in accordance with the NASCET methodology. Stenosis calculations for carotid ultrasound studies are derived from validated velocity criteria which are known to correlate with the NASCET methodology. Electronically signed by: Darinel Gallagher MD (12/18/2017 11:37 AM) [place] [id number]
[2017-12-18 11:51] LABS: BILIRUBIN,URINE NEG (NEG); CLARITY,URINE CLEAR; COLOR,URINE YELLOW; GLUCOSE,URINE NEG (NEG); NITRITE,URINE NEG (NEG); UROBILINOGEN,URINE 0.2 mg/dL (0.2 mg/dL)
[2017-12-18 11:52] LABS: BACTERIA,URINE 0 /HPF (0-FEW); RBC,URINE 0 /HPF (0-2); SQUAMOUS EPITHELIAL CELL,UR OCC /LPF; WBC,URINE OCC /HPF (0-4)
[2017-12-18] MEDS ORDERED: HEPARIN PF 500 UNIT/5 ML DISP.SYRIN. IV ONE (12:15)
== END 2017-12-18 12:45 | disposition home or self-care (01) ==
LOC: ER 09:15
DX: R42 Dizziness and giddiness (principal); R51 Headache; I11.0 Hypertensive heart disease with heart failure; I50.9 Heart failure, unspecified; F32.9 Major depressive disorder, single episode, unspecified; M79.7 Fibromyalgia; K21.9 Gastro-esophageal reflux disease without esophagitis; E78.00 Pure hypercholesterolemia, unspecified; Z87.440 Personal history of urinary (tract) infections; Z87.442 Personal history of urinary calculi; Z86.73 Personal history of transient ischemic attack (TIA), and cerebral infarction without residual deficits; Z88.5 Allergy status to narcotic agent; Z88.8 Allergy status to other drugs, medicaments and biological substances; Z88.1 Allergy status to other antibiotic agents
CPT/HCPCS: 36415; 70450; 70496; 70498; 71045; 80053; 81001; 84484; 85025; 93005; 96361; 96374; 99285; Q9967; J7030

== ENCOUNTER 2018-01-11 22:30 | Inpatient (IN) | payer BC, MEDICARE ==
[~2018-01-11] VITALS: Ht 177.8 cm; Wt 108.4 kg
[~2018-01-11 22:30] MED LIST changes: +CEFT1VIA13 IJ; -CEFT1VIA6 IJ
[2018-01-11] MEDS ORDERED: ONDANSETRON PF 4 MG/2 ML VIAL. IV ONE (23:30)
[2018-01-11] MEDS ORDERED: IV NORMAL SALINE 1,000ML 1,000 ML IV ONE (23:30)
--- NOTE | 2018-01-11 23:33 | PHYS DOC ---
Past History Past Medical History: Cancer, CHF, CVA, Depression, Fibromyalgia, GERD, High Cholesterol, Hypertension, Kidney Stones, UTI, Other Past Surgical History: Cancer Surgery, Other Alcohol Use: None Drug Use: None Adult General Chief Complaint Chief Complaint: ABDOMINAL PAIN [place] [employer] HPI 67-year-old female presents with abdominal pain and vomiting. The patient has a complex abdominal history with breast cancer metastasis to the abdomen, chronic hydronephrosis, multiple resistant UTIs, multiple episodes of C. difficile. The patient has had 2-3 days of intermittent abdominal pain and vomiting. Today the vomiting was much greater volume and contained food contents from yesterday. The patient also has had more abdominal distention than normal. She is concern for obstruction. She has a history of obstruction. The patient did have a bowel movement today but it was thick and had a strong odor. She was only able to have a bowel movement after a glycerin suppository. The patient is currently being treated for UTI. She is on meropenem and has one to 2 days left. The patient's abdominal pain is mostly in her right and left upper quadrants. She denies fever or chills. Review of Systems Review of Systems Constitutional: Denies fever or chills [] Eyes: Denies change in visual acuity, redness, or eye pain [] HENT: Denies nasal congestion or sore throat [] Respiratory: Denies cough or shortness of breath [] Cardiovascular: No additional information not addressed in HPI [] GI: Diffuse abdominal pain, nausea, vomiting, foul odor bowel movement with constipation[] : Denies dysuria or hematuria [] Musculoskeletal: Denies back pain or joint pain [] Integument: Denies rash or skin lesions [] Neurologic: Denies headache, focal weakness or sensory changes [] Endocrine: Denies polyuria or polydipsia [] All other systems were reviewed and found to be within normal limits, except as documented in this note. Allergies Allergies Allergies Coded Allergies Type Severity Reaction Last Updated Verified cephalexin Allergy Intermediate 12/18/17 Yes cyclosporine Allergy Intermediate 12/18/17 Yes hydromorphone Allergy Intermediate 12/18/17 Yes nitrofurantoin Allergy Intermediate 12/18/17 Yes scopolamine Allergy Intermediate 12/18/17 Yes thimerosal Allergy Intermediate 12/18/17 Yes Physical Exam Physical Exam Constitutional: Well developed, well nourished, no acute distress, non-toxic appearance. [] HENT: Normocephalic, atraumatic, bilateral external ears normal, oropharynx dry , no oral exudates, nose normal. Decreased hair consistent with chemotherapy. [] Eyes: PERRLA, EOMI, conjunctiva normal, no discharge. [] Neck: Normal range of motion, no tenderness, supple, no stridor. [] Cardiovascular:Heart rate regular rhythm, no murmur [] Lungs & Thorax: Bilateral breath sounds clear to auscultation [] Abdomen: Bowel sounds normal, soft, mild tenderness in the right upper quadrant and left upper quadrant. Mass left upper quadrant along the inferior rib 10[] Skin: Warm, dry, no erythema, no rash. [] Back: No tenderness, no CVA tenderness. [] Extremities: No tenderness, no cyanosis, no clubbing, ROM intact, no edema. [] Neurologic: Alert and oriented X 3, normal motor function, normal sensory function, no focal deficits noted. [] Psychologic: Affect normal, judgement normal, mood normal. 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 One or more of the following individualized dose reduction techniques were utilized for this examination: 1. Automated exposure control; 2. Adjustment of the mA and/or kV according to patient size; 3. Use of iterative reconstruction technique. FINDINGS: Sub-4 mm left lung base nodule. Distention of the esophagus. At least moderate calcific atherosclerosis. There is some collateral vessels seen adjacent to the distal esophagus as well as within upper abdomen. Free fluid is seen within the abdomen and pelvis including adjacent to the liver. Numerous low density lesions are seen within the liver. Some of these have a cystic appearance and some of them are too small to characterize. One of the larger lesions is near the falciform ligament measuring up to approximately 28 mm which is similar to prior. High density material is seen within the gallbladder. No definite peripancreatic edema. Fluid is seen adjacent to the spleen. There is nodularity of the mesentery. Severe dilation of the bilateral renal pelvis which appears somewhat increased from prior exam. This is seen bilaterally. Suture line seen at right side of bowel. There are some dilated loops of small bowel seen within the abdomen and pelvis with adjacent edema to the fat. Degenerative changes the spine with multilevel central canal and neural foraminal stenosis. At the left upper thigh laterally there is a partially visualized fluid attenuation region measuring greater than 68 x 27 mm. Numerous mixed density lesions are seen within the spine. Some have a sclerotic appearance and others have lytic component. IMPRESSION: 1. dilated loops of bowel are seen throughout the abdomen with adjacent edema to the fat and free fluid. This can be seen with causes such as small bowel obstruction. 2. Nodularity within the mesentery. Given the patient's history causes such as peritoneal implants of tumor are can have this appearance. 3. Multiple low-density liver lesions are again seen. Some of the larger 1's appear cystic and some of them are too small to characterize. 4. Repeat demonstration of numerous lytic and sclerotic lesions within the osseous structures including the spine. Given the patient's history neoplastic causes such as metastatic disease is again a possible cause. 5. Severe bilateral hydronephrosis. 6. Fluid collection seen subcutaneous soft tissues at left upper thigh partially visualized. Electronically signed by: Nathalie Rowley MD (01/12/2018 2:49 AM) [facility] DICTATED AND SIGNED BY: NATHALIE ROWLEY MD DATE: 01/12/18 0234 CC: ANDREW HUYNH DO; KYLE LAW MD ~ Course & Med Decision Making Course & Med Decision Making Pertinent Labs and Imaging studies reviewed. (See chart for details) The patient's labs are significant for slightly elevated white count. Her CT scan has abnormal findings. Many of these are expected. Please see official read for details. There is suggestion of possible, but not definite obstruction. I will discuss the case with Dr. Law and have the patient admitted to the hospital. I left a voicemail for Dr. Law, made the patient NPO and admitted her to the [facility] unit. [] Dragon Disclaimer Dragon Disclaimer This electronic medical record was generated, in whole or in part, using a voice recognition dictation system. Departure Departure: Referrals: KYLE LAW MD (PCP) ANDREW HUYNH DO Jan 11, 2018 23:33
[2018-01-11] MEDS ORDERED: CONTRAST GIVEN MC PRN (23:45)
[2018-01-11] MEDS ORDERED: IOHEXOL 300 MG/ML 75 ML VIAL. IV ONE (23:45)
[2018-01-11] MEDS ORDERED: IOHEXOL 240 MG/ML 50ML VIAL. PO ONE (23:45)
[2018-01-12 00:04] LABS: BASO # 0.2 x10^3/uL (0.0-0.2); BASO % 1 % (0-3); EOS # 0.1 x10^3/uL (0.0-0.7); EOS % 1 % (0-3); HEMATOCRIT 42.5 % (36.0-47.0); HEMOGLOBIN 14.3 g/dL (12.0-15.5); LYMPH % 14 % (24-48); MEAN CORPUSCULAR HEMOGLOBIN 33 pg (25-35); MEAN CORPUSCULAR HGB CONC 34 g/dL (31-37); MEAN CORPUSCULAR VOLUME 98 fL (79-100); MONO # 0.5 x10^3/uL (0.0-1.1); MONO % 3 % (0-9); NEUT # 11.9 x10^3uL (1.8-7.7); NEUT % 81 % (31-73); PLATELET COUNT 287 x10^3/uL (140-400); RED BLOOD COUNT 4.33 x10^6/uL (3.50-5.40); RED CELL DISTRIBUTION WIDTH 14.9 % (11.5-14.5); WHITE BLOOD COUNT 14.7 x10^3/uL (4.0-11.0)
[2018-01-12 00:17] LABS: ALBUMIN/GLOBULIN RATIO 0.7 (1.0-1.7); CALCIUM 9.8 mg/dL (8.5-10.1); CREATININE 0.9 mg/dL (0.6-1.0); GFR 62.3; POTASSIUM 3.9 mmol/L (3.5-5.1); TOTAL BILIRUBIN 0.6 mg/dL (0.2-1.0); TOTAL PROTEIN 7.3 g/dL (6.4-8.2)
--- NOTE | 2018-01-12 02:52 | RAD ---
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 One or more of the following individualized dose reduction techniques were utilized for this examination: 1. Automated exposure control; 2. Adjustment of the mA and/or kV according to patient size; 3. Use of iterative reconstruction technique. FINDINGS: Sub-4 mm left lung base nodule. Distention of the esophagus. At least moderate calcific atherosclerosis. There is some collateral vessels seen adjacent to the distal esophagus as well as within upper abdomen. Free fluid is seen within the abdomen and pelvis including adjacent to the liver. Numerous low density lesions are seen within the liver. Some of these have a cystic appearance and some of them are too small to characterize. One of the larger lesions is near the falciform ligament measuring up to approximately 28 mm which is similar to prior. High density material is seen within the gallbladder. No definite peripancreatic edema. Fluid is seen adjacent to the spleen. There is nodularity of the mesentery. Severe dilation of the bilateral renal pelvis which appears somewhat increased from prior exam. This is seen bilaterally. Suture line seen at right side of bowel. There are some dilated loops of small bowel seen within the abdomen and pelvis with adjacent edema to the fat. Degenerative changes the spine with multilevel central canal and neural foraminal stenosis. At the left upper thigh laterally there is a partially visualized fluid attenuation region measuring greater than 68 x 27 mm. Numerous mixed density lesions are seen within the spine. Some have a sclerotic appearance and others have lytic component. IMPRESSION: 1. dilated loops of bowel are seen throughout the abdomen with adjacent edema to the fat and free fluid. This can be seen with causes such as small bowel obstruction. 2. Nodularity within the mesentery. Given the patient's history causes such as peritoneal implants of tumor are can have this appearance. 3. Multiple low-density liver lesions are again seen. Some of the larger 1's appear cystic and some of them are too small to characterize. 4. Repeat demonstration of numerous lytic and sclerotic lesions within the osseous structures including the spine. Given the patient's history neoplastic causes such as metastatic disease is again a possible cause. 5. Severe bilateral hydronephrosis. 6. Fluid collection seen subcutaneous soft tissues at left upper thigh partially visualized. Electronically signed by: Christopher Carlin MD (01/12/2018 2:49 AM) [facility]
[2018-01-12] MEDS ORDERED: ONDANSETRON PF 4 MG/2 ML VIAL. IV PRN (03:15)
[2018-01-12 04:06] VITALS: BP 139/82
[2018-01-12 04:16] LABS: COLOR,URINE YELLOW
[2018-01-12 04:17] LABS: BACTERIA,URINE FEW /HPF (0-FEW); BILIRUBIN,URINE NEG (NEG); CLARITY,URINE HAZY; GLUCOSE,URINE NEG (NEG); HYALINE CASTS, URINE FEW /HPF; NITRITE,URINE NEG (NEG); SQUAMOUS EPITHELIAL CELL,UR OCC /LPF; UROBILINOGEN,URINE 0.2 mg/dL (0.2 mg/dL)
[2018-01-12 04:18] LABS: YEAST,URINE PRESENT /HPF
[2018-01-12] MEDS ORDERED: CRAN200C3 PO (04:46)
[2018-01-12] MEDS ORDERED: METH-359 PO (04:47)
[2018-01-12] MEDS ORDERED: DULO60CA6 PO (04:48)
[2018-01-12] MEDS ORDERED: ACET-704 PO (04:48)
[2018-01-12] MEDS ORDERED: DIPH25CA58 PO (04:49)
[2018-01-12] MEDS ORDERED: LISI-338 PO (04:52)
[2018-01-12 05:43] VITALS: BP 135/79
[2018-01-12] MEDS ORDERED: MERO1PIG IV (06:30)
[2018-01-12] MEDS ORDERED: diphenhydrAMINE HCL 25 MG CAPSULE PO PRN (08:00)
[2018-01-12] MEDS: ONDANSETRON ODT 4 MG TAB.RAPDIS PO SCH ×3 (08:15→21:34)
[2018-01-12] MEDS ORDERED: ACETAMINOPHEN/CODEINE 300/30MG TABLET PO PRN (08:30)
[2018-01-12] MEDS: POTASSIUM CHLORIDE 8 MEQ TABLET.ER. PO SCH (08:58)
[2018-01-12] MEDS ORDERED: CRANBERRY EXTRACT 200 MG PO SCH (09:00)
[2018-01-12] MEDS: CHOLECALCIFEROL (VITAMIN D3) 1,000 UNIT TABLET PO SCH (09:00)
[2018-01-12] MEDS: PANTOPRAZOLE 40 MG TABLET. PO SCH (09:00)
[2018-01-12] MEDS ORDERED: S ADENOSYLMETHIONINE SUL TOSYL 400 MG PO SCH (09:00)
[2018-01-12] MEDS: GABAPENTIN 300 MG CAPSULE. PO SCH ×2 (09:00→21:36)
[2018-01-12] MEDS: METHAMPHETAMINE HCL 5 MG PO SCH ×2 (09:00→21:39)
[2018-01-12] MEDS ORDERED: [UNRECOGNIZED DRUG - OTHER] PO SCH (09:00)
[2018-01-12] MEDS: LACTOBACILLUS RHAMNOSUS GG 1 CAPSULE. PO SCH (09:00)
[2018-01-12] MEDS: LEVOTHYROXINE 100 MCG TABLET PO SCH (09:01)
[2018-01-12] MEDS: MULTIVITAMIN with MINERAL TABLET. PO SCH (09:01)
[2018-01-12] MEDS: CYANOCOBALAMIN (VITAMIN B-12) 1,000 MCG TABLET. PO SCH (09:01)
[2018-01-12] MEDS: traMADol 50 MG TABLET PO SCH ×2 (09:01→12:04)
[2018-01-12] MEDS: CARVEDILOL 12.5 MG TABLET PO SCH ×3 (09:01→21:38)
[2018-01-12] MEDS: APIXABAN 5 MG TABLET. PO SCH ×2 (09:01→21:37)
[2018-01-12 10:15] VITALS: BP 121/67
[2018-01-12] MEDS ORDERED: MEROPENEM IV SCH (14:00)
[2018-01-12] MEDS ORDERED: SODIUM CHLORIDE IV SCH (14:00)
[2018-01-12] MEDS ORDERED: MEROPENEM 1 GM in IV NORMAL SALINE 100ML 100 ML IV SCH (14:00)
[2018-01-12] MEDS ORDERED: [UNRECOGNIZED DRUG - OTHER] IV SCH (14:00)
[2018-01-12] MEDS: MEROPENEM 1 GM IV SCH ×2 (14:08→21:39)
[2018-01-12 16:34] VITALS: BP 138/78
--- NOTE | 2018-01-12 17:48 | HP ---
ADMIT DATE: 01/12/2018 HISTORY OF PRESENT ILLNESS: A 67-year-old female with history of breast cancer with metastasis to her colon. The patient has been having problems here in the last 24-48 hours with nausea, vomiting, bringing up large contents from her stomach. She said bringing over 60 mL of fluid with abdominal pain as well. The patient was admitted to the hospital for further evaluation. The patient has been undergoing numerous chemotherapies for her breast cancer that is metastasized and alike. The patient said she has been feeling fairly well. She has been receiving meropenem for significant urinary tract and kidney infection here of late. In any case, the patient was admitted for IV fluids and further evaluation of her bowel. She may have a bowel obstruction secondary to the tumors that appeared to be metastasized to the omentum there. PAST MEDICAL HISTORY: Extensive including chronic sinusitis, nosebleeds, cataracts, tonsillectomy, chemo brain. She also has marked neuropathy from many of her chemo agents, cerebrovascular disease, transient ischemic attacks, ____, peripheral neuropathy, chronic numbness, cardiac disorders, cardiac symptoms, SVT controlled with Coreg, heart murmur, mitral valve problems, congestive heart failure, coronary artery disease, she is on Eliquis; hypercholesterolemia, respiratory disorders, pulmonary emboli, sleep apnea, GERD, she is on CPAP; pulmonary emboli in 2013, obesity, breast cancer, breast surgery, multiple; and also mets to the colon and cecum. 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 diff x 3, methicillin-resistant Staphylococcus aureus in the blood and recurrent chronic sinusitis. FAMILY HISTORY: Sister with blood disorder, father and sister with cardiovascular disease, and a sister with cancer. ALLERGIES: KEFLEX, CYCLOSPORINE, HYDROMORPHONE, NITROFURANTOIN, SCOPOLAMINE, and THIMEROSAL. SOCIAL HISTORY: No smoking, alcohol, or drug use. 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 She is DNR. MEDICATIONS: Her medication list is also extensive including Benadryl, meropenem as noted, Eliquis 5 mg b.i.d., pravastatin 20 mg a day, carvedilol 25 b.i.d., lisinopril 5, Tylenol, tramadol 50 mg q.6, gabapentin, duloxetine, Cymbalta 60 mg a day, methamphetamine 5 mg b.i.d., Prosom 2 mg at bedtime, potassium chloride, Omnaris nasal spray, lactobacillus, Zofran ODT, chondroitin sulfate, Prilosec over the counter, levothyroxine 100 mcg, B12, vitamin D3, multivitamins, cranberry extract and SHELBY-e 400 mg daily. REVIEW OF SYSTEMS: Generalized bloating, nausea, vomiting, diffuse abdominal pain, general pain to her lytic lesions of her thoracic and rib cage area. The patient's nausea although is somewhat relieved. She denies any melena, hematochezia, hematemesis. Did have a small bowel movement this morning. PHYSICAL EXAMINATION: GENERAL: The patient otherwise on exam is a very pleasant, jovial, alopecia-type female, very loquacious. VITAL SIGNS: Blood pressure 135/80, respirations 18, pulse 94, afebrile. HEENT: The patient's head was atraumatic, normocephalic. Eyes: PERRLA without jaundice. Mouth and throat were normal. NECK: Supple, without JVD or thyromegaly. LUNGS: Diminished throughout, poor movement of air, but clear. CARDIOVASCULAR: Regular sinus rhythm. ABDOMEN: Markedly bloated, distended, decreased bowel sounds at this time, although they vary. EXTREMITIES: No clubbing, cyanosis. Some chronic lymphedema, swelling to the right great toe with an ulceration to the base of the right great toe. The patient otherwise has decreased sensation to her extremities, both upper and lower extremities, consistent with her polyneuropathy. IMPRESSION AND PLAN: Small bowel obstruction, severe hydronephrosis, breast cancer with mets to the bones, also mets to the colon, peripheral neuropathy secondary to chemotherapy, multiple urinary tract infections, post-chemotherapy, on antibiotic therapy for recurrent urinary tract infections, multiple long history as noted in the past medical history as well. PLAN: We will go ahead and continue to monitor the patient and accordingly make further evaluation on her as indicated. Continue with fluids, mobilize and PT, OT if possible, but being extremely careful of possible spontaneous fractures. KYLE LAW MD DR: BELGICA/calixto JOB#: [id number] / [id number]
[2018-01-12 19:53] VITALS: BP 114/72
[2018-01-12] MEDS ORDERED: FLUTICASONE 50MCG/NASAL SPRAY 16GM BOTTLE. NS SCH (21:00)
[2018-01-12] MEDS: FLUTICASONE 50MCG/NASAL SPRAY 16GM BOTTLE. NS SCH (21:33)
[2018-01-12] MEDS: PRAVASTATIN 20 MG TABLET. PO SCH (21:34)
[2018-01-12] MEDS: LISINOPRIL 5 MG TABLET. PO SCH (21:35)
[2018-01-12] MEDS: DULoxetine HCL 60 MG CAPSULE.DR PO SCH (21:35)
[2018-01-12] MEDS: TEMAZEPAM 15 MG CAPSULE PO SCH (21:37)
[2018-01-12 23:29] VITALS: BP 120/75
[2018-01-13 05:22] VITALS: BP 131/81
[2018-01-13 06:11] LABS: BASO # 0.1 x10^3/uL (0.0-0.2); BASO % 1 % (0-3); CALCIUM 8.7 mg/dL (8.5-10.1); CREATININE 0.7 mg/dL (0.6-1.0); EOS # 0.4 x10^3/uL (0.0-0.7); EOS % 4 % (0-3); GFR 83.2; HEMATOCRIT 34.4 % (36.0-47.0); HEMOGLOBIN 11.5 g/dL (12.0-15.5); LYMPH # 2.3 x10^3/uL (1.0-4.8); LYMPH % 25 % (24-48); MEAN CORPUSCULAR HEMOGLOBIN 33 pg (25-35); MEAN CORPUSCULAR HGB CONC 34 g/dL (31-37); MEAN CORPUSCULAR VOLUME 98 fL (79-100); MONO # 0.5 x10^3/uL (0.0-1.1); MONO % 5 % (0-9); NEUT % 65 % (31-73); PLATELET COUNT 183 x10^3/uL (140-400); POTASSIUM 3.7 mmol/L (3.5-5.1); RED CELL DISTRIBUTION WIDTH 15.1 % (11.5-14.5); WHITE BLOOD COUNT 9.3 x10^3/uL (4.0-11.0)
[2018-01-13] MEDS: ONDANSETRON ODT 4 MG TAB.RAPDIS PO SCH ×3 (06:20→21:21)
[2018-01-13] MEDS: MEROPENEM 1 GM IV SCH ×3 (06:22→21:20)
[2018-01-13] MEDS: LEVOTHYROXINE 100 MCG TABLET PO SCH (08:14)
[2018-01-13] MEDS: PANTOPRAZOLE 40 MG TABLET. PO SCH (08:14)
[2018-01-13] MEDS: APIXABAN 5 MG TABLET. PO SCH ×2 (08:15→21:02)
[2018-01-13] MEDS: MULTIVITAMIN with MINERAL TABLET. PO SCH (08:16)
[2018-01-13] MEDS: traMADol 50 MG TABLET PO SCH ×2 (08:16→12:10)
[2018-01-13] MEDS: LACTOBACILLUS RHAMNOSUS GG 1 CAPSULE. PO SCH (08:16)
[2018-01-13] MEDS: CARVEDILOL 12.5 MG TABLET PO SCH ×2 (08:16→21:01)
[2018-01-13] MEDS: CYANOCOBALAMIN (VITAMIN B-12) 1,000 MCG TABLET. PO SCH (08:17)
[2018-01-13] MEDS: POTASSIUM CHLORIDE 8 MEQ TABLET.ER. PO SCH (08:17)
[2018-01-13] MEDS: CHOLECALCIFEROL (VITAMIN D3) 1,000 UNIT TABLET PO SCH (08:17)
[2018-01-13] MEDS: GABAPENTIN 300 MG CAPSULE. PO SCH ×2 (08:17→20:34)
[2018-01-13] MEDS: METHAMPHETAMINE HCL 5 MG PO SCH (09:00)
[2018-01-13 11:25] VITALS: BP 121/78
[2018-01-13] MEDS ORDERED: HEPARIN PF 500 UNIT/5 ML DISP.SYRIN. IV ONE (14:22)
[2018-01-13 15:30] VITALS: BP 96/54
--- NOTE | 2018-01-13 16:11 | RAD ---
Acute abdomen series with chest, 3 views, 01/13/2018: HISTORY: Abdominal pain, small bowel obstruction Oral contrast material from the patient's previous CT study has passed into the left colon. Gas is present in large and small bowel. A couple of air-fluid levels in the upper abdomen probably lie within fluid-filled stomach. No free air is seen in the abdomen. There is no evidence of organomegaly. A right Port-A-Cath extends to the level the atriocaval junction. The heart size is normal. No pulmonary infiltrate is seen. There are scattered sclerotic foci in the bones likely on a metastatic basis. Surgical clips are present in both axillary regions. A surgical plate and screws is evident in the lower cervical spine. IMPRESSION: Moderate amount gas in large and small bowel without evidence of high-grade obstruction. Electronically signed by: Jh Feliciano MD (01/13/2018 4:08 PM) [facility]
[2018-01-13] MEDS ORDERED: BISACODYL 10 MG SUPP.RECT PR ONE (16:15)
[2018-01-13 19:51] VITALS: BP 121/77
[2018-01-13] MEDS: FLUTICASONE 50MCG/NASAL SPRAY 16GM BOTTLE. NS SCH (20:34)
[2018-01-13] MEDS: TEMAZEPAM 15 MG CAPSULE PO SCH (21:00)
[2018-01-13] MEDS: DULoxetine HCL 60 MG CAPSULE.DR PO SCH (21:01)
[2018-01-13] MEDS: LISINOPRIL 5 MG TABLET. PO SCH (21:02)
[2018-01-13] MEDS: PRAVASTATIN 20 MG TABLET. PO SCH (21:02)
[2018-01-13] MEDS: METHENAMINE HIPPURATE 1 GM TABLET PO SCH (21:14)
[2018-01-13 22:39] VITALS: BP 118/63
--- NOTE | 2018-01-14 02:46 | PN ---
DATE: 01/13/2018 SUBJECTIVE: This is a 67-year-old female in with a small-bowel obstruction. The patient is still having some abdominal pain, still markedly bloated, but improved overall. The patient had x-rays taken today still shows quite a bit of stool and possible ileus. We will continue to monitor accordingly and make further evaluation on her as indicated. OBJECTIVE: VITAL SIGNS: Blood pressure 96/54, respiratory rate 20, pulse 74, afebrile. GENERAL: The patient is alert and oriented. LUNGS: Diminished, but clear. CARDIOVASCULAR: . ABDOMEN: Markedly distended abdomen, softer than it has been. She is passing gas very infrequently, but passing some. We need to get her bowels moving, looks like there is quite a bit of stool left in the descending and sigmoid colons and we will continue to monitor her accordingly giving her Dulcolax suppository. Otherwise, we will continue to monitor. IMPRESSION: 1. Abdominal carcinomatosis. 2. Breast cancer with mets to the bones, liver, and colon; mild ascites. 3. Bilateral hydronephrosis. 4. Sclerotic or neoplastic disease in the spine. 5. Continue with pain management as well as try to get her bowels to move and make further evaluation on her as indicated. KYLE LAW MD DR: BELGICA/calixto JOB#: [id number] / [id number]
[2018-01-14 05:32] VITALS: BP 122/72
[2018-01-14] MEDS: ONDANSETRON ODT 4 MG TAB.RAPDIS PO SCH ×2 (06:00→08:17)
[2018-01-14] MEDS: MEROPENEM 1 GM IV SCH ×2 (06:00→08:17)
[2018-01-14 06:33] LABS: BASO # 0.1 x10^3/uL (0.0-0.2); BASO % 1 % (0-3); EOS # 0.3 x10^3/uL (0.0-0.7); EOS % 5 % (0-3); HEMATOCRIT 30.3 % (36.0-47.0); HEMOGLOBIN 10.1 g/dL (12.0-15.5); LYMPH # 1.9 x10^3/uL (1.0-4.8); LYMPH % 26 % (24-48); MEAN CORPUSCULAR HEMOGLOBIN 33 pg (25-35); MEAN CORPUSCULAR HGB CONC 33 g/dL (31-37); MEAN CORPUSCULAR VOLUME 100 fL (79-100); MONO # 0.5 x10^3/uL (0.0-1.1); MONO % 7 % (0-9); NEUT # 4.3 x10^3uL (1.8-7.7); NEUT % 60 % (31-73); PLATELET COUNT 170 x10^3/uL (140-400); RED BLOOD COUNT 3.04 x10^6/uL (3.50-5.40)
[2018-01-14 06:38] LABS: CALCIUM 8.7 mg/dL (8.5-10.1); CREATININE 0.7 mg/dL (0.6-1.0); GFR 83.2; POTASSIUM 3.6 mmol/L (3.5-5.1)
[2018-01-14] MEDS: GABAPENTIN 300 MG CAPSULE. PO SCH (08:10)
[2018-01-14] MEDS: LACTOBACILLUS RHAMNOSUS GG 1 CAPSULE. PO SCH (08:12)
[2018-01-14] MEDS: METHENAMINE HIPPURATE 1 GM TABLET PO SCH (08:12)
[2018-01-14] MEDS: CHOLECALCIFEROL (VITAMIN D3) 1,000 UNIT TABLET PO SCH (08:12)
[2018-01-14] MEDS: CYANOCOBALAMIN (VITAMIN B-12) 1,000 MCG TABLET. PO SCH (08:12)
[2018-01-14] MEDS: POTASSIUM CHLORIDE 8 MEQ TABLET.ER. PO SCH (08:12)
[2018-01-14] MEDS: MULTIVITAMIN with MINERAL TABLET. PO SCH (08:13)
[2018-01-14] MEDS: traMADol 50 MG TABLET PO SCH (08:13)
[2018-01-14] MEDS: APIXABAN 5 MG TABLET. PO SCH (08:13)
--- NOTE | 2018-01-14 10:09 | DS ---
DATE OF DISCHARGE: 01/14/2018 HOSPITAL COURSE: A 67-year-old female in with of course small-bowel obstruction, severe hydronephrosis and alike. The patient was admitted and placed on bed rest, bowel rest, laxatives. She has had good bowel movements. The patient would like to be discharged home today. says she can carry out her regimen at home. She is quite adept at that. PHYSICAL EXAMINATION: VITAL SIGNS: The patient's blood pressure 122/72, respirations 18, pulse 70, afebrile. GENERAL: The patient is alert and oriented. LUNGS: Clear. CARDIOVASCULAR: ____ ABDOMEN: Diffuse tenderness, but markedly improved from where she was. We will continue to monitor the patient. She will be on a very low fiber diet for a while then she is to follow up with the cancer clinic and make further evaluation on her bowels. Otherwise, hemoglobin is 10.1 and 30. We will continue to monitor her as an outpatient and make further assessment on her as indicated. MEDICATIONS: See MRAD. ACTIVITIES: Decreased activity. IMPRESSION: Small-bowel obstruction; severe hydroureteronephrosis; breast cancer with mets to the bones as well as to her colon; peripheral neuropathy secondary to chemotherapy; multiple urinary tract infections post-chemotherapy; abdominal carcinomatosis; breast cancer with mets to the bones, liver, colon; ascites; bilateral hydronephrosis; sclerotic and neoplastic disease in the spine. Continue to monitor. Continue with her evaluation at [facility] at . The patient also there received word from [facility] that she was not a candidate for some experimental therapies that she was interested in. In any case, she will be discharged to home with home health to follow low fiber diet, decreased activity, and followup accordingly. KYLE LAW MD DR: BELGICA/calixto JOB#: [id number] / [id number]
[2018-01-14 10:39] VITALS: BP 115/69
== END 2018-01-14 11:01 | disposition home health service (06) | DRG 389 ==
LOC: ER 22:30 → 1 SOUTH 01-12 03:51
PROVIDERS: ADMIT Family Medicine; ATTEND Family Medicine
PROC: 5A09357 Assistance with Respiratory Ventilation, Less than 24 Consecutive Hours, Continuous Positive Airway Pressure (ICD-10-PCS; principal; 2018-01-12)
DX: K56.609 Unspecified intestinal obstruction, unspecified as to partial versus complete obstruction (principal); C78.5 Secondary malignant neoplasm of large intestine and rectum; C78.7 Secondary malignant neoplasm of liver and intrahepatic bile duct; C79.51 Secondary malignant neoplasm of bone; C79.89 Secondary malignant neoplasm of other specified sites; R18.8 Other ascites; N39.0 Urinary tract infection, site not specified; N13.30 Unspecified hydronephrosis; C50.919 Malignant neoplasm of unspecified site of unspecified female breast; E78.00 Pure hypercholesterolemia, unspecified; F42.9 Obsessive-compulsive disorder, unspecified; I11.0 Hypertensive heart disease with heart failure; I25.10 Atherosclerotic heart disease of native coronary artery without angina pectoris; I50.9 Heart failure, unspecified; K21.9 Gastro-esophageal reflux disease without esophagitis; M17.0 Bilateral primary osteoarthritis of knee; M41.9 Scoliosis, unspecified; M79.7 Fibromyalgia; E66.9 Obesity, unspecified; F32.9 Major depressive disorder, single episode, unspecified; G56.03 Carpal tunnel syndrome, bilateral upper limbs; G62.0 Drug-induced polyneuropathy; H26.9 Unspecified cataract; T45.1X5A Adverse effect of antineoplastic and immunosuppressive drugs, initial encounter; Z66 Do not resuscitate; Z79.01 Long term (current) use of anticoagulants; Z80.9 Family history of malignant neoplasm, unspecified; Z82.49 Family history of ischemic heart disease and other diseases of the circulatory system; Z86.711 Personal history of pulmonary embolism; Z86.73 Personal history of transient ischemic attack (TIA), and cerebral infarction without residual deficits; Z87.442 Personal history of urinary calculi; Z98.1 Arthrodesis status; Z68.34 Body mass index [BMI] 34.0-34.9, adult; Y92.89 Other specified places as the place of occurrence of the external cause; Z88.1 Allergy status to other antibiotic agents; Z88.8 Allergy status to other drugs, medicaments and biological substances; Z90.49 Acquired absence of other specified parts of digestive tract; Z90.13 Acquired absence of bilateral breasts and nipples; Z90.89 Acquired absence of other organs; Z86.14 Personal history of Methicillin resistant Staphylococcus aureus infection
CPT/HCPCS: 36415; 74022; 74177; 80048; 80053; 81001; 83605; 83690; 85025; 87086; 96361; 96374; J2405; Q0162; Q9966; Q9967; 99285-25; J7030

== ENCOUNTER 2018-04-03 11:47 | Inpatient (IN) | payer BC, MEDICARE ==
[~2018-04-03] VITALS: Ht 172.7 cm; Wt 108.1 kg
[~2018-04-03 11:47] MED LIST changes: +ACET-704 PO; +CRAN200C3 PO; +DIPH25CA58 PO; +DULO60CA6 PO; +LISI-338 PO; +MERO1PIG IV; +METH-359 PO
[2018-04-03 12:35] VITALS: BP 109/67
[2018-04-03 13:19] LABS: BASO # 0.1 x10^3/uL (0.0-0.2); BASO % 1 % (0-3); EOS % 0 % (0-3); HEMATOCRIT 37.7 % (36.0-47.0); HEMOGLOBIN 12.1 g/dL (12.0-15.5); LYMPH # 1.3 x10^3/uL (1.0-4.8); LYMPH % 9 % (24-48); MEAN CORPUSCULAR HEMOGLOBIN 31 pg (25-35); MEAN CORPUSCULAR HGB CONC 32 g/dL (31-37); MEAN CORPUSCULAR VOLUME 97 fL (79-100); MONO # 0.6 x10^3/uL (0.0-1.1); MONO % 4 % (0-9); NEUT # 12.8 x10^3uL (1.8-7.7); NEUT % 86 % (31-73); PLATELET COUNT 178 x10^3/uL (140-400); RED BLOOD COUNT 3.89 x10^6/uL (3.50-5.40); RED CELL DISTRIBUTION WIDTH 17.4 % (11.5-14.5); WHITE BLOOD COUNT 14.8 x10^3/uL (4.0-11.0)
[2018-04-03 13:26] LABS: ALBUMIN 2.6 g/dL (3.4-5.0); ALBUMIN/GLOBULIN RATIO 0.7 (1.0-1.7); CALCIUM 8.4 mg/dL (8.5-10.1); MAGNESIUM 1.9 mg/dL (1.8-2.4); POTASSIUM 3.7 mmol/L (3.5-5.1); TOTAL BILIRUBIN 0.5 mg/dL (0.2-1.0); TOTAL PROTEIN 6.1 g/dL (6.4-8.2)
[2018-04-03] MEDS ORDERED: METOCLOPRAMIDE 5 MG TABLET PO PRN (13:30)
[2018-04-03] MEDS ORDERED: LOPERAMIDE 2 MG CAPSULE PO PRN (13:45)
[2018-04-03] MEDS ORDERED: CONTRAST GIVEN MC PRN (13:45)
[2018-04-03] MEDS ORDERED: AA 3%/ELECTROLYTE-TPN SOLN/GLY 1,000 ML IV SCH (13:45)
[2018-04-03] MEDS ORDERED: diphenhydrAMINE HCL 25 MG CAPSULE PO PRN (13:45)
[2018-04-03] MEDS ORDERED: IOHEXOL 300 MG/ML 75 ML VIAL. IV ONE (14:00)
[2018-04-03] MEDS ORDERED: ACETAMINOPHEN/CODEINE 300/30MG TABLET PO PRN (14:00)
[2018-04-03] MEDS ORDERED: ONDANSETRON ODT 4 MG TAB.RAPDIS PO PRN (14:00)
[2018-04-03] MEDS: PANTOPRAZOLE IV 40 MG VIAL. IVP SCH (14:17)
[2018-04-03 16:21] VITALS: BP 98/61
[2018-04-03] MEDS ORDERED: CARVEDILOL 12.5 MG TABLET PO SCH (17:00)
--- NOTE | 2018-04-03 17:22 | RAD ---
CT of the abdomen and pelvis with contrast, 04/03/2018: HISTORY: Abdominal pain, possible bowel obstruction Multidetector CT imaging was performed following an IV bolus injection of iodinated contrast material. No oral contrast material was administered for this study. Comparison is made to an exam from 01/11/2018. Multiple low-density hepatic lesions are again identified. These are fairly well defined and are probably predominantly cysts. There is a tiny amount of radiopaque material layering out posteriorly in the gallbladder compatible with tiny gallstones. The pancreas is severely atrophic. The spleen is of normal size. There is bilateral hydronephrosis, similar to that seen on the previous study. Moderate right renal cortical scarring is present. Aortoiliac calcific plaquing is present. No periaortic or pelvic adenopathy is seen. The uterus is surgically absent. There is a history of previous bowel surgeries. There is mild distention of multiple small bowel loops also evident on the previous study. Ongoing or recurrent partial small bowel obstruction is suspected. There is fluid and gas in the colon without significant colonic distention. No free air is evident in the abdomen. There is a moderate volume of ascites of slightly greater volume than on the previous study. Ascites extends into a small periumbilical hernia. No bowel herniation is evident. Multiple small mesenteric nodules have shown no definite change since 01/12/2018. Metastatic disease is again suspected. There are scattered mixed lytic and sclerotic bony lesions similar to those seen on 01/12/2018. The findings are compatible with osseous metastatic disease. Moderate multilevel degenerative changes are also evident in the spine. There is mild anterolisthesis at L4-5 with severe underlying spinal stenosis at that level. IMPRESSION: 1. Mildly dilated small bowel loops suggests ongoing or recurrent partial small bowel obstruction. 2. Small to moderate volume of ascites which has increased since 01/12/2018. 3. Ongoing bilateral hydronephrosis. 4. Ongoing mesenteric nodularity compatible with metastatic disease. 5. 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 6. Other miscellaneous chronic findings as described above. PQRS Compliance Statement: One or more of the following individualized dose reduction techniques were utilized for this examination: 1. Automated exposure control 2. Adjustment of the mA and/or kV according to patient size 3. Use of iterative reconstruction technique Electronically signed by: Jh Feliciano MD (04/03/2018 5:18 PM) [facility]
[2018-04-03 20:02] VITALS: BP 126/81
[2018-04-03] MEDS: CARVEDILOL 12.5 MG TABLET PO SCH (20:25)
[2018-04-03] MEDS: GABAPENTIN 300 MG CAPSULE. PO SCH (20:25)
[2018-04-03] MEDS: APIXABAN 5 MG TABLET. PO SCH (20:26)
[2018-04-03] MEDS ORDERED: TEMAZEPAM 7.5 MG CAPSULE PO SCH (21:00)
[2018-04-03] MEDS ORDERED: DULoxetine HCL 60 MG CAPSULE.DR PO SCH (21:00)
[2018-04-03] MEDS ORDERED: LISINOPRIL 5 MG TABLET. PO SCH (21:00)
[2018-04-03] MEDS ORDERED: FLUTICASONE 50MCG/NASAL SPRAY 16GM BOTTLE. NS SCH (21:00)
[2018-04-03 21:54] LABS: BILIRUBIN,URINE NEG (NEG); CLARITY,URINE HAZY; COLOR,URINE YELLOW; GLUCOSE,URINE NEG (NEG)
[2018-04-03 21:55] LABS: BACTERIA,URINE FEW /HPF (0-FEW); NITRITE,URINE NEG (NEG); RBC,URINE 20-40 /HPF (0-2); SQUAMOUS EPITHELIAL CELL,UR FEW /LPF; UROBILINOGEN,URINE 0.2 mg/dL (0.2 mg/dL)
[2018-04-03 21:58] LABS: FECAL OB PT POSITIVE (NEG)
[2018-04-04 00:26] VITALS: BP 98/60
[2018-04-04 05:13] VITALS: BP 104/66
[2018-04-04 06:41] LABS: BASO # 0.1 x10^3/uL (0.0-0.2); BASO % 0 % (0-3); EOS % 0 % (0-3); HEMATOCRIT 32.4 % (36.0-47.0); HEMOGLOBIN 10.6 g/dL (12.0-15.5); LYMPH % 4 % (24-48); MEAN CORPUSCULAR HEMOGLOBIN 32 pg (25-35); MEAN CORPUSCULAR HGB CONC 33 g/dL (31-37); MEAN CORPUSCULAR VOLUME 96 fL (79-100); MONO # 0.5 x10^3/uL (0.0-1.1); MONO % 2 % (0-9); NEUT # 26.5 x10^3uL (1.8-7.7); NEUT % 95 % (31-73); PLATELET COUNT 129 x10^3/uL (140-400); RED BLOOD COUNT 3.36 x10^6/uL (3.50-5.40); RED CELL DISTRIBUTION WIDTH 17.2 % (11.5-14.5)
[2018-04-04] MEDS ORDERED: LEVOTHYROXINE 100 MCG TABLET PO SCH (07:30)
[2018-04-04] MEDS ORDERED: POTASSIUM CHLORIDE 8 MEQ TABLET.ER. PO SCH (08:00)
[2018-04-04] MEDS ORDERED: traMADol 50 MG TABLET PO SCH (08:00)
[2018-04-04] MEDS: APIXABAN 5 MG TABLET. PO SCH (08:25)
[2018-04-04] MEDS: GABAPENTIN 300 MG CAPSULE. PO SCH (08:26)
[2018-04-04] MEDS: PANTOPRAZOLE IV 40 MG VIAL. IVP SCH (08:27)
[2018-04-04] MEDS: CARVEDILOL 12.5 MG TABLET PO SCH (08:27)
[2018-04-04] MEDS ORDERED: LACTOBACILLUS RHAMNOSUS GG 1 CAPSULE. PO SCH (09:00)
[2018-04-04] MEDS ORDERED: S ADENOSYLMETHIONINE SUL TOSYL 400 MG PO SCH (09:00)
[2018-04-04] MEDS ORDERED: MULTIVITAMIN with MINERAL TABLET. PO SCH (09:00)
[2018-04-04 09:31] LABS: % BANDS 7 % (0-9); % LYMPHS 3 % (24-48); % MONOS 1 % (0-10); % SEGS 89 % (35-66)
[2018-04-04 09:32] LABS: ANISOCYTOSIS SLIGHT; HYPOCHROMIA SLIGHT; OVALOCYTES OCC; PLT ESTIMATE DECREASED (ADEQUATE); TEAR DROP CELLS OCC
[2018-04-04 09:33] LABS: TOXIC GRANULATION PRESENT; TOXIC VACUOLATION PRESENT
[2018-04-04 11:05] VITALS: BP 100/64
--- NOTE | 2018-04-07 11:28 | DS ---
DATE OF DISCHARGE: 04/04/2018 HOSPITAL COURSE: A 68-year-old female with history of breast cancer as well as metastatic disease to her ribs, bones, spine and also into her colon. The patient was having increased abdominal pain, becoming heavy nausea, vomiting, unable to keep fluids down, was admitted initially. The patient also had abdominal distention. A CAT scan of her abdomen and pelvis demonstrated the possibility of a small-bowel obstruction. Her white count went from 14,000-28,000 may have been related to her antineoplastic drugs; however, not taken any chances. The patient was transferred down to where she did have surgical as well as her Oncology people reviewed her. Her blood pressure was also on the low side. Stool cultures were negative for Salmonella, Campylobacter and alike. Urine cultures grew out E. coli sensitive to just about every antibiotic that she had. In any case, the patient made good progress during the rest of her hospitalization. She was transferred down to [facility] for further evaluation. IMPRESSION: Small-bowel obstruction, partial [id number] protein malnutrition, leukocytosis, anemia of chronic disease, history of breast cancer with mets to the skeletal system as well as to the colon itself, urinary tract infection, Escherichia coli, morbid obesity. PLAN: As above, transferred as indicated. KYLE LAW MD DR: BELGICA/calixto JOB#: [id number] / [id number]
== END 2018-04-04 12:07 | disposition short-term general hospital (02) | DRG 388 ==
LOC: 1 SOUTH 11:56
PROVIDERS: ADMIT Family Medicine; ATTEND Family Medicine
DX: K56.600 Partial intestinal obstruction, unspecified as to cause (principal); E43 Unspecified severe protein-calorie malnutrition; N39.0 Urinary tract infection, site not specified; C78.5 Secondary malignant neoplasm of large intestine and rectum; N13.30 Unspecified hydronephrosis; C79.51 Secondary malignant neoplasm of bone; N15.8 Other specified renal tubulo-interstitial diseases; E86.0 Dehydration; Z85.3 Personal history of malignant neoplasm of breast; K21.9 Gastro-esophageal reflux disease without esophagitis; C50.911 Malignant neoplasm of unspecified site of right female breast; Z92.21 Personal history of antineoplastic chemotherapy; Z79.899 Other long term (current) drug therapy; M19.90 Unspecified osteoarthritis, unspecified site; M48.061 Spinal stenosis, lumbar region without neurogenic claudication; G47.33 Obstructive sleep apnea (adult) (pediatric); Z88.8 Allergy status to other drugs, medicaments and biological substances; Z86.711 Personal history of pulmonary embolism; Z79.01 Long term (current) use of anticoagulants; D72.829 Elevated white blood cell count, unspecified; D63.8 Anemia in other chronic diseases classified elsewhere; E66.01 Morbid (severe) obesity due to excess calories; B96.20 Unspecified Escherichia coli [E. coli] as the cause of diseases classified elsewhere
CPT/HCPCS: 36415; 74177; 80048; 80053; 81001; 82274; 82306; 83605; 83735; 84134; 84443; 85007; 85025; 85045; 87045; 87086; 87186; 87493; C9113; Q9967